=== PATIENT | male | born 1980 | race Caucasian/White ===

== ENCOUNTER 2020-05-08 08:31 | Outpatient (REF) | payer OTHER, SELFPAY ==
--- NOTE | 2020-05-08 08:35 | FL_ITS ---
EXAMINATION: FL BARIUM SWALLOW CLINICAL INFORMATION: Dysphagia. COMPARISON: None TECHNIQUE: Barium swallow examination is performed using fluoroscopic evaluation in addition to multiple fluoroscopic spot views. The patient is imaged both upright and prone and using both thick and thin sulfate along with effervescent granules. Fluoroscopy Time: 0.3 minutes DAP: 7.651 Gycm2 Images: 20 FINDINGS: Following oral administration of thick barium and thin barium in an upright view, there is normal propagation of bolus from the oral cavity through the pharynx, esophagus into the stomach without any evidence of obstruction or narrowing. There is extrinsic anterior impression on the mid esophagus likely from enlarged left atrium. However, there is no obstruction seen. Patient was unable to tolerate any more barium due to profuse spontaneous emesis. The exam was terminated. FL/FL barium swallow IMPRESSION: No evidence of esophageal obstruction, narrowing, or stricture. Non-obstructive indentation of anterior wall of mid esophagus likely left atrial enlargement. Correlate clinically.
== END 2020-05-08 08:32 | disposition home or self-care (01) ==
LOC: HO.XRAY 08:31
PROVIDERS: Visit Provider Internal Medicine Medical Oncology
DX: R13.10 Dysphagia, unspecified (principal); C64.9 Malignant neoplasm of unspecified kidney, except renal pelvis
CPT/HCPCS: 74220

== ENCOUNTER → 2020-05-13 14:54 | Outpatient (BNVA) | payer OTHER, SELFPAY | PROVIDERS: PCP Family Medicine; Visit Provider Internal Medicine | DX: Z76.89 Persons encountering health services in other specified circumstances (principal) ==

== ENCOUNTER 2020-06-05 12:27 | Emergency (ER) | payer OTHER, SELFPAY ==
[2020-06-05 12:33] VITALS: BP 133/102; PULSE 88; RESP 14; TEMP 36.6; O2SAT 97; BMI 33.9
--- NOTE | 2020-06-05 13:12 | ECG_ITS ---
Test Reason : AFIB Blood Pressure : / mmHG Vent. Rate : 082 BPM Atrial Rate : 082 BPM P-R Int : 196 ms QRS Dur : 100 ms QT Int : 384 ms P-R-T Axes : 045 029 034 degrees QTc Int : 448 ms Normal sinus rhythm Biatrial enlargement Abnormal ECG When compared with ECG of 05-JUN-2020 12:00, Sinus rhythm has replaced Atrial flutter Vent. rate has decreased BY [address] no longer depressed in Anterolateral leads Nonspecific T wave abnormality, improved in Inferior leads Referred By: Gertrude Fuentes Electronically Signed By:Hussein Wood
[2020-06-05 13:43] VITALS: RESP 20
[2020-06-05 14:03] LABS: D Dimer 1181 NG/ML
--- NOTE | 2020-06-05 14:24 | CT_ITS ---
EXAMINATION: CT ANGIOGRAM OF THE CHEST WITH AND WITHOUT CONTRAST (CT PULMONARY ANGIOGRAM FOR PE) CLINICAL INFORMATION: Reason for Exam SOB, elevated dimer, hx rnal cell CA COMPARISON: Previous chest CT most recent November 2019 TECHNIQUE: Prior to contrast administration, noncontrast localization images were obtained. Subsequently, multidetector volumetric imaging was performed from the thoracic inlet to below the diaphragms following the administration of 65 mL Omnipaque 350 intravenous contrast. No contrast reaction reported Sagittal, coronal, and MIP oblique sagittal reformatted images were obtained on the CT workstation, uploaded to PACS, and reviewed. This CT examination was performed using dose optimization techniques as appropriate, variously including the following: *Automated exposure control *Adjustment of mA and/or kV according to patient size (this includes techniques or standardized protocols for targeted exams where dose is matched to indication/reason for exam; i.e. extremities or head) *Use of iterative reconstruction technique Total exam dose-length product 43 4 mGy-cm FINDINGS: QUALITY OF STUDY/CONTRAST BOLUS: Satisfactory. PULMONARY ARTERIES: No large or central emboli. There is under opacification of segmental and subsegmental posterior basal segment right lower lobe pulmonary arteries for example axial image 260- 320 series 8, coronal reconstructed image 70 series 9, and oblique reconstructed images 78 series 11 and 100 series 12. There is new narrowing of the right inferior pulmonary vein for example axial image 27 series 6 and it is uncertain whether this is related to flow effects related to pulmonary vein narrowing or obstruction secondary to post radiation change. THORACIC AORTA: No aneurysm or dissection. LUNG: There is volume loss to the right hemithorax with shift of the central mediastinal structures to the right and elevation of the right hemidiaphragm. There is complete atelectasis/consolidation of the right middle lobe and cicatrization bronchiectasis. There is a cicatrization bronchiectasis seen in the adjacent right upper lobe and superior segment of the right lower lobe as well. Appearance is suggestive of post radiation changes. The lungs are otherwise clear. PLEURA: There is minimal pleural thickening along the major fissure. There is no pleural effusion. MEDIASTINUM: Normal heart size. No pericardial effusion. No evidence of septal bowing or right heart strain. There is an enlarged subcarinal mediastinal lymph node. This is difficult to separate from the adjacent esophagus. This measures 3.5 x 4 cm and does not appear appreciably changed in size from most recent exam November 2019. There are smaller mediastinal lymph nodes in the vascular space, right paratracheal region and right pulmonary hilum. There are right retrocrural lymph nodes that appear stable. The largest measures 6 x 12 mm axial image 47 series 6. CHEST WALL/AXILLA: No axillary or internal mammary lymphadenopathy. OSSEOUS STRUCTURES: No acute or suspicious osseous abnormality. UPPER ABDOMEN: There are enhancing liver lesions that are stable measuring approximately 1 cm high in the left lobe axial image 40 series 6, central right lobe axial image 47 series 6 and in the peripheral or subcapsular posterior segment of the right lobe measuring 1.1 x 1.4 cm axial image 59 series 6. The latter nodule is continuous with abnormal soft tissue in in the post nephrectomy bed. This appears stable. There is abnormal attenuation seen in the posterior lateral IVC again questionable for a possible IVC thrombus that is stable. There is a small left adrenal nodule that measures 8 x 12 mm axial image 56 series 6 that is stable. The spleen is slightly enlarged measuring 13 cm in length. No reflux of contrast into the hepatic veins to suggest elevated right heart pressures. CT/CT angio chest PE protocol IMPRESSION: No large or central pulmonary embolism seen. Decreased opacification of segmental and subsegmental right lower lobe pulmonary arteries and new narrowing or obstruction of the right inferior pulmonary vein. It is uncertain whether findings in the right pulmonary artery are secondary to slow or abnormal flow secondary to pulmonary venous obstruction/narrowing. Enlarged mediastinal lymph nodes, largest a subcarinal lymph node. Stable smaller right hilar and right retrocrural lymph nodes. Stable enhancing liver lesions. Stable abnormal soft tissue in the right posterior nephrectomy bed and abnormal soft tissue in the IVC. Appearance is questionable for tumor or thrombus. This is not appear appreciably changed from previous exams.
--- NOTE | 2020-06-05 14:28 | ED_ITS ---
HPI - Arrhythmia/Palpitations General Chief Complaint: Arrhythmia/Palpitations Stated Complaint: ABNORMAL EKG Time Seen by Provider: 06/05/20 12:48 Source: patient Mode of arrival: wheelchair Limitations: no limitations History of Present Illness HPI narrative: Patient comes to the emergency room from Dr. Meléndez office. Patient was being seen at the Oncology office for metastatic renal cell carcinoma, it was noted the patient's heart rate was in the 160s. Patient was brought to emergency room. Patient states that he is known to have intermittent atrial fibrillation, his heart rate does go up to the 160s intermittently. Patient is aware of this. Patient complaining of chronic shortness of breath for 4-5 months, patient states that he still being worked up for the reason of shortness of breath. Patient states he sees Dr. Garcia for atrial fibrillation, patient used to be on amiodarone, discontinued, and now he is on Cardizem and flecainide. By the time the patient's came to emergency room, hanny melgar was in sinus rhythm, with heart rate in the 80s. At this time, patient is asymptomatic other than having chronic shortness of breath MD complaint: rapid heart beat Related Data Home Medications Medication Instructions Recorded Confirmed albuterol sulfate 1 puff PO Q4H PRN 03/12/20 05/13/20 axitinib [Inlyta] 5 mg PO BID 03/12/20 05/13/20 ondansetron HCl 1 - 2 tab PO Q8H PRN 03/12/20 05/13/20 Previous Rx's Medication Instructions Recorded morphine [MS Contin] 60 mg PO Q12H #60 tab 03/19/20 oxycodone 10 mg PO Q8H PRN #90 tab 04/17/20 oxycodone 30 mg PO BID-TID PRN #120 tab 04/17/20 oxycodone 30 mg PO Q8H PRN #120 tab 04/29/20 diltiazem HCl 120 mg 120 mg PO DAILY #30 cap 05/07/20 capsule,extended release 24 hr flecainide 100 mg tablet 100 mg PO Q12H #60 tab 05/07/20 oxycodone 30 mg PO Q8H PRN #90 tab 05/08/20 oxycodone 30 mg PO TID PRN #90 tab 05/27/20 oxycodone 30 mg PO TID PRN #120 tab 06/05/20 Allergies Allergy/AdvReac Type Severity Reaction Status Date / Time No Known Allergies Allergy Verified 05/13/20 14:54 Review of Systems Review of Systems: Constitutional : No Weight loss, No Fever, No Chills, No Night Sweats, No Fatigue, No Malaise ENT/Mouth : No Hearing loss, No Ear Pain, No Nasal Congestion, No Sinus Pain, No Hoarseness, No sore throat, No Rhinorrhea, No Swallowing Difficulty Eyes: No Eye Pain, No Swelling, No Redness, No Foreign Body, No Discharge, No Vision Changes Cardiovascular : No Chest Pain, complaining of chronic shortness of breath, worse on exertion, No Orthopnea, No Edema, No Palpitations Respiratory : No Cough, No Sputum, No Wheezing, No Smoke Exposure, No Dyspnea Gastrointestinal : No Nausea, No Vomiting, No Diarrhea, No Constipation, No abdominal Pain, No Hematochezia, No Melena Genitourinary : no irregular bleeding, No Dysuria, No Urinary Frequency, No Hematuria, No Urinary Incontinence, No Urgency, No Flank Pain, No Urinary Flow Changes, No Hesitancy Musculoskeletal : No joint pain, No Myalgias, No Joint Swelling Skin : No Skin Lesions, No rash Neuro : No Weakness, No Numbness, No Paresthesias, No Loss of Consciousness, No Dizziness, No Headache Psych : No Anxiety/Panic, No Depression, No SI/HI/AH/VH, No Social Issues, Heme/Lymph: No Bruising, No Bleeding,No Lymphadenopathy Endocrine : No Polyuria, No Polydipsia, No Temperature Intolerance [facility] Past Medical History Medical History Atrial fibrillation alf current use of antiarrhythmic drug PAF (paroxysmal atrial fibrillation) Family History Family History (Updated 05/13/20 @ 14:57 by EVAN Vazqeuz) Father Atrial fibrillation Mother No problems noted. Social History Social History (Updated 05/13/20 @ 14:56 by EVAN Vazquez) Smoking Status: Current every day smoker Cigarettes Per Day: 10 Advance Directives: No Advance Directives Information Provided: No Physical Exam Vital Signs: Vital Signs: Last Vital Signs Temp 97.8 F 06/05/20 12:33 Pulse 88 06/05/20 12:33 Resp 20 06/05/20 13:43 BP 133/102 H 06/05/20 12:33 Pulse Ox 97 06/05/20 12:33 Body Mass Index 33.9 Constitutional : No Weight loss, No Fever, No Chills, No Night Sweats, No Fatigue, No Malaise ENT/Mouth : No Hearing loss, No Ear Pain, No Nasal Congestion, No Sinus Pain, No Hoarseness, No sore throat, No Rhinorrhea, No Swallowing Difficulty Eyes: No Eye Pain, No Swelling, No Redness, No Foreign Body, No Discharge, No Vision Changes Cardiovascular : No Chest Pain, No SOB, No Dyspnea on Exertion, No Orthopnea, No Edema, No Palpitations Respiratory : No Cough, No Sputum, No Wheezing, No Smoke Exposure, No Dyspnea Gastrointestinal : No Nausea, No Vomiting, No Diarrhea, No Constipation, No abdominal Pain, No Hematochezia, No Melena Genitourinary : no irregular bleeding, No Dysuria, No Urinary Frequency, No Hematuria, No Urinary Incontinence, No Urgency, No Flank Pain, No Urinary Flow Changes, No Hesitancy Musculoskeletal : No joint pain, No Myalgias, No Joint Swelling Skin : No Skin Lesions, No rash Neuro : No Weakness, No Numbness, No Paresthesias, No Loss of Consciousness, No Dizziness, No Headache Psych : No Anxiety/Panic, No Depression, No SI/HI/AH/VH, No Social Issues, Heme/Lymph: No Bruising, No Bleeding,No Lymphadenopathy Endocrine : No Polyuria, No Polydipsia, No Temperature Intolerance Course Course Course Narrative: Patient remains asymptomatic other than the chronic shortness of breath. Patient got the CT a for PE done, however he states that he cannot wait for the results, states he has an obligation at 16:00 and he can no longer wait. I discussed with the patient that patient may be admitted, we are waiting for the results of the PE, cardiology advise still pending regarding pt's flecainide which patient wants to discontinue, and also advised pending on whether patient is to be admitted to do the echocardiogram for the chronic shortness of breath. Patient states that he is always getting admitted without getting any answers, patient does not want to stay. Patient states that if he dies from a PE, he does not care, states that he already has cancer and he is going to anyways. Patient will leave against medical advise. Patient is alert and oriented x3, patient understands the risks of leaving against medical advice including possible MDM - Arrhythmia/Palpitations Lab Data Labs: Lab Results 06/05/20 Range/Units 13:36 D-Dimer 1181 NG/ML Discharge Plan Discharge Clinical Impression: Atrial fibrillation, Chronic shortness of breath Patient Disposition: Left Against Medical Advice Instructions: A-fib (Atrial Fibrillation) (ED), Shortness of Breath (ED) Additional Instructions: You are leaving against medical advice. Please follow-up with your mobile lab technician and with Dr. Meléndez. Please follow-up with your primary care physician tomorrow. If you have any worsening or new symptoms, please return to the emergency room or call 911 Prescriptions: No Action diltiazem HCl 120 mg capsule,extended release 24hr 120 mg PO DAILY Qty: 30 RF: 4 flecainide 100 mg tablet 100 mg PO Q12H Qty: 60 RF: 3 ondansetron HCl 8 mg tablet 1 - 2 tab PO Q8H PRN (Reason: nausea/vomiting) RF: 0 albuterol sulfate 90 mcg/actuation HFA aerosol inhaler 1 puff PO Q4H PRN (Reason: dyspnea) RF: 0 Inlyta 5 mg tablet 5 mg PO BID RF: 0 morphine [MS Contin] 60 mg Tablet Extended Release 60 mg PO Q12H Qty: 60 RF: 0 oxycodone 10 mg Tablet 30 mg PO BID-TID PRN (Reason: Breakthrough Pain, Moderate) Qty: 120 RF: 0 oxycodone 10 mg Tablet 10 mg PO Q8H PRN (Reason: Breakthrough Pain, Moderate) Qty: 90 RF: 0 oxycodone 10 mg Tablet 30 mg PO Q8H PRN (Reason: Breakthrough Pain, Mild) Qty: 120 RF: 0 oxycodone 10 mg Tablet 30 mg PO TID PRN (Reason: Breakthrough Pain, Moderate) Qty: 90 RF: 0 oxycodone 10 mg Tablet 30 mg PO TID PRN (Reason: Breakthrough Pain, Moderate) Qty: 120 RF: 0 oxycodone 10 mg Tablet 30 mg PO Q8H PRN (Reason: Pain) Qty: 90 RF: 0 Discharge Date/Time: 06/05/20 15:27
--- NOTE | 2020-06-05 14:44 | PC.NURSE ---
INFORMED MD THAT PT DDIMER ELEVATED. PT FRUSTRATED WITH HAVING TO BE IN ED. STATES HE HAS HAD THESE SYMPTOMS FOR YEARS. MD AND RN INTO ROOM AND MD DISCUSSED NEED FOR CTA. PT ASKING TO SPEAK WITH DR CHASE BEFORE SCAN BECAUSE HE IS SUPPOSED TO HAVE ANOTHER SCAN DONE IN 2 DAYS WITH DYE AND HE IS CONCERNED ABOUT HAVING TOO MUCH DYE INJECTED INTO HIM. PT HIMSELF TRIED TO CALL DR CHASE BUT WAS TOLD SHE IS NOT IN THE BUILDING. RN CALLED DOWN TO ONCOLOGY AND SPOKE WITH DIONE EDGE. EXPLAINED SITUATION TO HER AND SHE STATED SHE WOULD NOTIFY DR CHASE WHEN SHE RETURNS TO CALL [facility]. PT MADE AWARE AND AGREED TO HAVE IV PLACED. STATING HE IS AGREEABLE TO TEST AND WANTS TO LEAVE AFTER IT IS DONE. PT IN CT AT THIS TIME.
[2020-06-05] MEDS: iohexoL 350 MG/ML 100 ML INFUS..BTL IV (15:15)
--- NOTE | 2020-06-05 15:26 | PC.NURSE ---
Pt left AMA at this time. in room to discuss risks of leaving including risk of PE. Pt states he accepts these risks and states I've excaped for this long I have a higher risk of getting covid in here. IV removed, ambulated out of ED without incident. Declined to stay to wait for paperwork
== END 2020-06-05 15:27 | disposition left against medical advice (07) ==
PROVIDERS: Emergency Provider Emergency Medicine
DX: I48.91 Unspecified atrial fibrillation (principal); R00.2 Palpitations; R06.02 Shortness of breath; F17.200 Nicotine dependence, unspecified, uncomplicated; Z71.6 Tobacco abuse counseling; Z79.899 Other long term (current) drug therapy
CPT/HCPCS: 36415; 71275; 85379; 93005; 99284; Q9967

== ENCOUNTER → 2020-06-23 15:18 | Outpatient (BNVA) | payer OTHER, SELFPAY | PROVIDERS: Visit Provider Internal Medicine | DX: R06.02 Shortness of breath (principal); C78.00 Secondary malignant neoplasm of unspecified lung; R09.02 Hypoxemia; Z99.81 Dependence on supplemental oxygen | CPT/HCPCS: 99202 ==

== ENCOUNTER 2020-07-07 14:21 | Outpatient (REF) | payer OTHER, SELFPAY ==
--- NOTE | ~2020-07-07 | CT_ITS ---
EXAMINATION: CT ABDOMEN AND PELVIS WITH CONTRAST CLINICAL INFORMATION: Metastatic renal cell cancer COMPARISON: Previous CT scan most recent November 2019 TECHNIQUE: Multidetector volumetric images were obtained from the superior aspect of the liver through the pubic symphysis following administration 85 mL of Omnipaque 350 intravenous contrast. Sagittal and coronal reformatted images were obtained on the technologist's workstation. Oral contrast: Yes This CT examination was performed using dose optimization techniques as appropriate, variously including the following: *Automated exposure control *Adjustment of mA and/or kV according to patient size (this includes techniques or standardized protocols for targeted exams where dose is matched to indication/reason for exam; i.e. extremities or head) *Use of iterative reconstruction technique DLP: 7-1 mGy-cm FINDINGS: LUNG BASES: The visualized lung bases are unremarkable. LIVER, GALLBLADDER, AND BILIARY TREE: There are several small low-attenuation area seen high in the dome of the liver that are stable. The largest measures 1 cm axial image 12 series 3. There is a small low-attenuation area measuring less than 1 cm in the right lobe axial image 17 series 3 that is stable. There is a small low-attenuation area in the posterior segment of the right lobe adjacent to abnormal paraspinal soft tissue that measures less than 1 cm axial image 28 series 3 that is stable. No new liver lesion is seen. The gallbladder is unremarkable. There is no biliary duct dilatation. PANCREAS: Unremarkable. SPLEEN: The spleen is slightly enlarged measuring 13.5 cm in length. ADRENAL GLANDS: Unremarkable. KIDNEYS AND URETERS: The right kidney is been removed. There is abnormal soft tissue seen in the right paraspinal muscles extending to the right adrenal gland and inferior liver that appears stable in the post nephrectomy bed. The left kidney is unremarkable. BLADDER: Unremarkable. GASTROINTESTINAL TRACT: The small and large bowel are unremarkable. The appendix is unremarkable. ABDOMINAL WALL: No significant hernia is appreciated. LYMPH NODES: Normal. VASCULAR: There is chronic thrombus seen in the infrahepatic IVC. This is partially calcified and unchanged. Vascular structures are otherwise unremarkable. PELVIC VISCERA: Unremarkable. OSSEOUS STRUCTURES: Unremarkable. CT/CT abdomen pelvis w con IMPRESSION: Post right nephrectomy. Stable small liver lesions. Stable abnormal soft tissue in the nephrectomy bed involving the paraspinal muscles and extending to the right adrenal gland and inferior liver. Stable partially calcified thrombus in the infrahepatic IVC. Stable mild spinal megaly.
[2020-07-07] MEDS: iohexoL 350 MG/ML 100 ML INFUS..BTL IV (14:41)
[2020-07-07] MEDS: Barium Sulfate Oral (Berry) 450 ML ORAL.SUSP 900 ML PO (14:42)
== END 2020-07-07 14:22 | disposition home or self-care (01) ==
LOC: HO.CT 14:21
PROVIDERS: Visit Provider Internal Medicine Medical Oncology
DX: C64.9 Malignant neoplasm of unspecified kidney, except renal pelvis (principal)
CPT/HCPCS: 74177; Q9967

== ENCOUNTER 2020-07-20 15:04 | Outpatient (REF) | payer OTHER, SELFPAY ==
--- NOTE | 2020-07-20 17:21 | PFT_ITS ---
Forced vital capacity and FEV1 are both slightly decreased. FEV1/FVC ratio is normal. [id number] is normal. MVV is moderately decreased. The patient declined to have bronchodilator therapy. Total lung capacity and residual volume are both slightly decreased. Diffusion capacity is moderately decreased. DL/VA is slightly decreased. CONCLUSION: These findings are suggestive of mild restrictive pulmonary disorder. There is no evidence of any significant obstructive airway disorder. Clinical correlation is recommended. MD ANSHU Mullins/YAMILE / [id number]
== END 2020-07-20 15:05 | disposition home or self-care (01) ==
LOC: HO.RESP 15:04
PROVIDERS: Visit Provider Internal Medicine
DX: C78.00 Secondary malignant neoplasm of unspecified lung (principal); R09.02 Hypoxemia; R06.02 Shortness of breath; Z99.81 Dependence on supplemental oxygen
CPT/HCPCS: 94010; 94727; 94729; 99212

== ENCOUNTER → 2020-08-28 09:47 | Outpatient (REF) | payer OTHER, SELFPAY ==
--- NOTE | 2020-08-28 09:50 | CA_ITS ---
Transthoracic Echocardiogram Patient (Last, First, Middle): Wilfrid Barry, Gender: Male Date of : 1980 Age: 40 Procedure Date: 08/28/2020 Procedure Type: Transthoracic Echocardiogram Location: OP Height: 182.88 cm Weight: 112.01 kg BSA: 2.33 m2 Heart Rate: bpm BP: 130 / 80 mmHg Helmet Binder: Ana MD: Dell Garcia MD Dehydrogenation Converter Operator: Sami Wolf MD Symptoms: R06.02 - Shortness of breath Study Quality: Fair ECG Rhythm: Atrial Fibrillation Conclusions: - 1. Normal LV systolic function 2. Limited evaluation of cardiac valves with normal cardiac valvular Dopplers 3. Normal RV systolic pressure 4. No pericardial effusion Findings Left Ventricle The visually estimated ejection fraction is between 60-65%. Diastolic function is indeterminate on the basis of available data. Right Ventricle Normal right ventricular cavity size and systolic function. Atria The left atrium is normal in size. Interatrial shunt cannot be excluded. The right atrium is normal in size. Aortic Valve The aortic valve structure and function is likely normal. There is no aortic valve stenosis. There is no aortic valve regurgitation. Mitral Valve Normal mitral valve structure and function. There is trace mitral valve regurgitation. There is no mitral valve stenosis. Pulmonic Valve The pulmonic valve was not well visualized. Tricuspid Valve Likely normal tricuspid valve structure and function. There is trace tricuspid valve regurgitation. The right ventricular systolic pressure is normal. The right ventricular systolic pressure is 14 mmHg. There is no evidence of pulmonary hypertension. Great Vessels All visible segments of the aorta are normal in size. The pulmonary artery was not well visualized. Venous The inferior vena cava was not well visualized. Pericardium/Pleural There is no evidence of pericardial effusion. Prior Study Comparison Changes noted compared to prior study. Patient in atrial fibrillation Measurements 2D Linear Measurements IVSd: 0.89 0.6-0.9/0.6-1.0 cm LVIDd: 4.89 3.9-5.3/4.2-5.9 cm LVIDd Index: 2.10 2.4-3.2/2.2-3.1 cm/m2 LVIDs: 2.75 2.0-3.6 cm LVPWd: 0.94 0.7-1.1 cm Ao Root: 3.50 2.1-3.5 cm LA Diam: 4.00 2.7-3.8/3.0-4.0 cm LAIDs Index: 1.72 1.5-2.3 cm/m2 LV Mass: 301.54 67-162/88-224 g LV Mass Index: 129.41 43-95/49-115 g/m2 LVOT Diam: 2.50 3.0+(-)1.3 cm 2D Systolic Function EF 4C: 51.60 >55% EF 2C: 51.00 >55% Mitral Valve MV Pk E: 0.73 MV Decel Time: 155.00 E'Lateral: 8.80 E'Medial: 10.90 E/E' Med: 6.70 E/E' Lat: 8.30 PHT: 45.00 MVA PHT: 4.89 Decel Cambria: 4.70 Aortic Valve AoV Pk Quinton: 0.85 AoV Mn Quinton: 0.61 AoV VTI: 0.17 AoV Pk Grad: 3.00 Aov Mn Grad: 2.00 BRITANY Cont.VTI: 4.11 LVOT LVOT Pk Quinton: 0.64 LVOT Mn Quinton: 0.45 LVOT VTI: 0.14 LVOT Pk Grad: 2.00 LVOT Mn Grad: 1.00 LVOT Diam: 2.50 LVOT Area: 4.91 Diastolic Function MV Pk E: 0.73 E'Medial: 10.90 E/E' Med: 6.70 E' Laterial: 8.80 E/E' Lat: 8.30 Tricuspid Valve TR Pk Quinton: 1.69 TR Pk Grad: 11.00 RA Press: 3.00 RVSP: 14.00 Great Vessels Aorta Ao Root-2D: 3.50 2.0-3.7 cm Ao Asc: 3.60 2.1-3.4 cm Pulmonary Valve PV Pk Quinton: 0.87 Peak PV Grad: 3.00 Updated in Other Vendor System with Status of Final Sami Wolf MD electronically signed on 08/28/2020 2:32:49 PM with status of Final
== END ==
LOC: HO.CARD 09:47
PROVIDERS: Visit Provider Internal Medicine
DX: R06.02 Shortness of breath (principal)
CPT/HCPCS: 93306

== ENCOUNTER → 2020-09-16 15:39 | Outpatient (BNVA) | payer OTHER, SELFPAY | PROVIDERS: PCP Nurse Practitioner Family; Visit Provider Internal Medicine | DX: C78.00 Secondary malignant neoplasm of unspecified lung (principal); R06.02 Shortness of breath; R09.02 Hypoxemia; Z99.81 Dependence on supplemental oxygen | CPT/HCPCS: 99212 ==

== ENCOUNTER → 2020-09-23 14:30 | Outpatient (BNVA) | payer OTHER, SELFPAY | PROVIDERS: PCP Nurse Practitioner Family; Visit Provider Internal Medicine | DX: I48.0 Paroxysmal atrial fibrillation (principal); I48.92 Unspecified atrial flutter; C64.9 Malignant neoplasm of unspecified kidney, except renal pelvis; Z51.81 Encounter for therapeutic drug level monitoring; Z79.899 Other long term (current) drug therapy | CPT/HCPCS: 93005; 99212 ==

== ENCOUNTER → 2020-10-07 14:14 | Outpatient (REF) | payer OTHER, SELFPAY ==
--- NOTE | 2020-10-07 16:05 | ECG_ITS ---
Hook-up date: 2020-10-07 14:20:00 Duration: 22:15:00 Test Indications: persistent afibrillation Medications: 468504 QRS complexes 13 Ventricular ectopics which represent <1 % of total QRS comp. 962 Supraventricular ectopics which represent <1 % of total QRS comp. * Paced QRS complexs which represent % of total QRS comp. VENTRICULAR ECTOPY 13 Isolated 0 Bigeminal Cycles 0 Couplets 0 Runs 0 Beats in Runs * Beats LONGEST at * BPM at :: -- * Beats FASTEST at * BPM at :: -- SUPRAVENTRICULAR ECTOPY 937 Isolated 8 Couplets 3 Runs 9 Beats in Runs 3 Beats LONGEST at 131 BPM at 17:03:40 2020-10-07 3 Beats FASTEST at 144 BPM at 20:03:13 2020-10-07 HEART RATES 40 MIN at 05:56:05 2020-10-08 90 AVG 182 MAX at 16:37:48 2020-10-07 LONGEST RR 2.2720 secs at 05:28:09 2020-10-08 S-T LEVELS Channel 1 - 128 mm at 14:20:00 2020-10-07 - 128 mm at 14:20:00 2020-10-07 Channel 2 - 128 mm at 14:20:00 2020-10-07 - 128 mm at 14:20:00 2020-10-07 Channel 3 - 128 mm at 03:33:91 -- - 128 mm at 03:33:91 Basic rhythm Normal sinus rhythm with Intermittent Atrial flutter No long pause or profound bradycardia Atrial flutter with rates upto 182 bpm Rare Premature ventricular complexes No diary submitted Referred By: Dell Garcia Overread By: FAINA HORNE MD
== END ==
LOC: HO.CARD 14:14
PROVIDERS: PCP Nurse Practitioner Family; Referring Provider Nurse Practitioner Family; Visit Provider Internal Medicine
DX: I48.0 Paroxysmal atrial fibrillation (principal)
CPT/HCPCS: 93226

== ENCOUNTER 2020-10-08 15:00 | Outpatient (RCR) | payer OTHER, SELFPAY ==
--- NOTE | 2020-02-28 13:47 | MHC.HEMONC ---
pt here for labs and to tack picker rx for short acting oxycodone. He had no new concerns. Will call with any concerning values.
[2020-02-28 14:43] LABS: MANUAL DIFF FLAG NO
[2020-02-28 14:45] LABS: Basophils Absolute Auto 0.1 X10*3/uL (0.0-0.2); Basophils Percent Auto 0.5 % (0-2); Eosinophils Absolute Auto 0.3 X10*3/uL (0.0-0.4); Eosinophils Percent Auto 2.4 % (0-4); Hematocrit 48.2 % (42-52); Imm Gran Abs Auto 0.06 X10*3/uL (0.00-0.03); Imm Gran Pct Auto 0.4 % (0.0-0.4); Lymphocytes Absolute Auto 2.1 X10*3/uL (1.2-4.9); Lymphocytes Percent Auto 14.9 % (20-40); Mean Corpuscular HGB Conc 33.2 g/dl (31.0-36.0); Mean Corpuscular Hemoglobin 28.5 pg (27.0-33.0); Mean Corpuscular Volume 85.8 fL (80-98); Mean Platelet Volume 10.5 fL (9.4-12.4); Monocytes Percent Auto 6.9 % (2-11); Neutrophils Absolute Auto 10.7 X10*3/uL (2.0-8.3); Neutrophils Percent Auto 74.9 % (45-73); Platelet Count 276 X10*3/uL (160-400); Red Blood Count 5.62 X10*6/uL (4.60-5.80); Red Cell Distribution Width 14.4 % (11.0-16.0); White Blood Count 14.3 X10*3/uL (4.8-10.8)
[2020-02-28 15:09] LABS: Alanine Aminotransferase 10 U/L (0-40); Albumin Level 3.8 g/dL (3.5-5.0); Alkaline Phosphatase 67 U/L (39-117); Anion Gap 12 (12-20); Aspartate Amino Transferase 13 U/L (5-37); Bilirubin Total 0.5 mg/dL (0.0-1.0); Blood Urea Nitrogen 9 mg/dL (9-16); Calcium 8.9 mg/dL (8.4-10.2); Carbon Dioxide 29 mmol/L (22-29); Chloride 104 mmol/L (96-108); Estimated Glomerular Filt Rate > 60; Glucose Random 112 mg/dL (60-115); Potassium 4.3 mmol/l (3.3-5.1); Sodium 141 mmol/L (135-145); Total Protein 6.3 g/dL (6.5-8.0)
--- NOTE | 2020-02-28 17:32 | MHC.HEMONC ---
pt here for labs which were reviewed and WNL. Oxycodone rx given to pt
--- NOTE | 2020-03-02 09:51 | MHC.HEMONCSW ---
RECEIVED FAXED FROM [facility] AUTHORIZING OXYCODONE 270 TABLETS PER 30 DAYS FROM THE PERIOD OF 02/28/20 TO 02/27/21. AUTHORIZATION NUMBER [id number].
[2020-03-12 11:22] VITALS: BMI 35.6
[2020-03-12 11:27] VITALS: BP 158/104; PULSE 83; RESP 18; TEMP 36.4; O2SAT 98
[2020-03-12 12:04] LABS: MANUAL DIFF FLAG NO
[2020-03-12 12:06] LABS: Basophils Absolute Auto 0.1 X10*3/uL (0.0-0.2); Basophils Percent Auto 0.8 % (0-2); Eosinophils Absolute Auto 0.2 X10*3/uL (0.0-0.4); Eosinophils Percent Auto 2.9 % (0-4); Hematocrit 43.6 % (42-52); Imm Gran Abs Auto 0.02 X10*3/uL (0.00-0.03); Imm Gran Pct Auto 0.2 % (0.0-0.4); Lymphocytes Absolute Auto 1.7 X10*3/uL (1.2-4.9); Lymphocytes Percent Auto 20.6 % (20-40); Mean Corpuscular HGB Conc 32.1 g/dl (31.0-36.0); Mean Corpuscular Hemoglobin 27.9 pg (27.0-33.0); Mean Corpuscular Volume 86.9 fL (80-98); Mean Platelet Volume 9.9 fL (9.4-12.4); Monocytes Absolute Auto 0.6 X10*3/uL (0.1-1.2); Monocytes Percent Auto 7.2 % (2-11); Neutrophils Absolute Auto 5.7 X10*3/uL (2.0-8.3); Neutrophils Percent Auto 68.3 % (45-73); Platelet Count 231 X10*3/uL (160-400); Red Blood Count 5.02 X10*6/uL (4.60-5.80); Red Cell Distribution Width 14.5 % (11.0-16.0); White Blood Count 8.4 X10*3/uL (4.8-10.8)
[2020-03-12 12:27] LABS: Alanine Aminotransferase 6 U/L (0-40); Albumin Level 3.8 g/dL (3.5-5.0); Alkaline Phosphatase 62 U/L (39-117); Anion Gap 11 (12-20); Aspartate Amino Transferase 11 U/L (5-37); Bilirubin Total 0.4 mg/dL (0.0-1.0); Blood Urea Nitrogen 7 mg/dL (9-16); Calcium 9.1 mg/dL (8.4-10.2); Carbon Dioxide 31 mmol/L (22-29); Chloride 102 mmol/L (96-108); Creatinine Clr Calc Pharmacy 136.3; Estimated Glomerular Filt Rate > 60; Glucose Random 100 mg/dL (60-115); Potassium 4.5 mmol/l (3.3-5.1); Sodium 139 mmol/L (135-145); Total Protein 6.3 g/dL (6.5-8.0)
[2020-03-12] MEDS: ondansetron HCL/NS 16 MG/50 ML PIGGYBACK 200 MG IV (13:25)
[2020-03-12 13:39] VITALS: BP 164/100
[2020-03-12] MEDS: dexAMETHasone sod phosphate/NS 12 MG/50 ML PIGGYBACK 100 MG IV (13:43)
--- NOTE | 2020-03-12 15:22 | MHC.HEMONC ---
pt here for [facility]. Labs WNL. He has been doing well on Axitinib and KETRUDA. No toxitities noted.
[2020-03-12 16:35] LABS: Thyroid Stimulating Hormone 2.35 mIU/mL (0.32-4.0)
[2020-04-02 08:33] VITALS: BMI 35.6
[2020-04-02 10:58] VITALS: BMI 35.2
[2020-04-02 12:09] LABS: MANUAL DIFF FLAG NO
[2020-04-02 12:17] LABS: Basophils Absolute Auto 0.1 X10*3/uL (0.0-0.2); Basophils Percent Auto 0.7 % (0-2); Eosinophils Absolute Auto 0.3 X10*3/uL (0.0-0.4); Eosinophils Percent Auto 2.7 % (0-4); Hematocrit 47.2 % (42-52); Hemoglobin 15.6 g/dl (14.0-18.0); Imm Gran Abs Auto 0.03 X10*3/uL (0.00-0.03); Imm Gran Pct Auto 0.3 % (0.0-0.4); Lymphocytes Percent Auto 18.3 % (20-40); Mean Corpuscular HGB Conc 33.1 g/dl (31.0-36.0); Mean Corpuscular Hemoglobin 28.3 pg (27.0-33.0); Mean Corpuscular Volume 85.7 fL (80-98); Mean Platelet Volume 10.5 fL (9.4-12.4); Monocytes Absolute Auto 0.7 X10*3/uL (0.1-1.2); Monocytes Percent Auto 6.2 % (2-11); Neutrophils Absolute Auto 7.8 X10*3/uL (2.0-8.3); Neutrophils Percent Auto 71.8 % (45-73); Platelet Count 211 X10*3/uL (160-400); Red Blood Count 5.51 X10*6/uL (4.60-5.80); Red Cell Distribution Width 14.3 % (11.0-16.0); White Blood Count 10.9 X10*3/uL (4.8-10.8)
[2020-04-02 12:41] LABS: Alanine Aminotransferase 8 U/L (0-40); Alkaline Phosphatase 76 U/L (39-117); Anion Gap 14 (12-20); Aspartate Amino Transferase 12 U/L (5-37); Bilirubin Total 0.2 mg/dL (0.0-1.0); Blood Urea Nitrogen 10 mg/dL (9-16); Calcium 8.4 mg/dL (8.4-10.2); Carbon Dioxide 26 mmol/L (22-29); Chloride 103 mmol/L (96-108); Creatinine Clr Calc Pharmacy 144.6; Estimated Glomerular Filt Rate > 60; Glucose Random 95 mg/dL (60-115); Potassium 4.4 mmol/l (3.3-5.1); Sodium 139 mmol/L (135-145); Total Protein 6.7 g/dL (6.5-8.0)
[2020-04-03 10:33] VITALS: BP 151/104; PULSE 97; RESP 18; TEMP 36.4; O2SAT 98; BMI 35.3
[2020-04-03 11:02] LABS: Thyroid Stimulating Hormone 1.93 mIU/mL (0.32-4.0)
[2020-04-03 11:12] VITALS: BP 122/77
[2020-04-03] MEDS: ondansetron HCL/NS 16 MG/50 ML PIGGYBACK 200 MG IV (11:40)
--- NOTE | 2020-04-20 10:36 | MHC.HEMONCMA ---
Patient called and spoke with Cindy and explained that the rx for oxycodone was written incorrectly. He described that the rx should be 10mg 3 pills tid prn for breakthrough pain with a quantity of 90. Spoke with Dr Meléndez and she corrected the rx and signed. I called and notified the patient, he is on his way to pick up worker with the rx.
--- NOTE | 2020-04-21 14:58 | MHC.HEMONC ---
Patient called states he feels like food is getting stuck and that he ate alot of sharp cheese it's last night and may have scratched his throat and is having blood streaked sputum. Patient states it resolved and started up again after eating more sharp cheese its. Dr. Meléndez made aware, plan to order a barium swallow. Follow up 04/30 for next chemo per MD.
--- NOTE | 2020-04-30 10:05 | MHC.HEMONCSW ---
PT HAS BEEN AN ONCOLOGY PATIENT HERE SINCE 2018. DIAGNOSIS IS METASTATIC RENAL CANCER, RECEIVING CHEMO/HORMONE THERAPY. HE IS A 41 Y.O. MALE WITH 2 DAUGHTERS. HE JUST BOUGHT HIS FIRST HOME. OVERALL PATIENT REPORTS COPING WELL. DOES ADMIT TO PAINFUL DAYS BUT IS OPTIMISTIC ABOUT HIS FUTURE. PATIENT RECEIVES A LOT OF FORMAL AND INFORMAL SUPPORTS. 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 HISTORY OF ALCOHOL ABUSE BUT SOBER APPROXIMATELY 5 YEARS. HAS NO FORMAL MENTAL HEALTH DIAGNOSIS. RECEIVES ONLY FOIL WRAPPER SERVICES. REMAINS INDEPENDENT, AMBULATORY, STILL DRIVES. EDUCATION, NUTRITION, GUIDANCE AND SUPPORT CONTINUE TO BE PROVIDED. PT IS AWARE OF MY AVAILABILITY.
[2020-05-01 12:28] LABS: MANUAL DIFF FLAG NO
[2020-05-01 12:32] VITALS: BMI 34.2
[2020-05-01 12:33] VITALS: BP 119/85; PULSE 99; RESP 20; TEMP 36.2; O2SAT 95
[2020-05-01 13:07] LABS: Basophils Absolute Auto 0.1 X10*3/uL (0.0-0.2); Basophils Percent Auto 0.9 % (0-2); Eosinophils Absolute Auto 0.3 X10*3/uL (0.0-0.4); Eosinophils Percent Auto 2.7 % (0-4); Hematocrit 48.9 % (42-52); Hemoglobin 15.5 g/dl (14.0-18.0); Imm Gran Abs Auto 0.04 X10*3/uL (0.00-0.03); Imm Gran Pct Auto 0.3 % (0.0-0.4); Lymphocytes Absolute Auto 2.1 X10*3/uL (1.2-4.9); Mean Corpuscular HGB Conc 31.7 g/dl (31.0-36.0); Mean Corpuscular Hemoglobin 27.3 pg (27.0-33.0); Mean Corpuscular Volume 86.1 fL (80-98); Mean Platelet Volume 10.4 fL (9.4-12.4); Monocytes Absolute Auto 0.8 X10*3/uL (0.1-1.2); Monocytes Percent Auto 6.8 % (2-11); Neutrophils Absolute Auto 8.3 X10*3/uL (2.0-8.3); Neutrophils Percent Auto 71.3 % (45-73); Platelet Count 249 X10*3/uL (160-400); Red Blood Count 5.68 X10*6/uL (4.60-5.80); Red Cell Distribution Width 13.7 % (11.0-16.0); White Blood Count 11.6 X10*3/uL (4.8-10.8)
[2020-05-01 13:13] LABS: Alanine Aminotransferase 9 U/L (0-40); Albumin Level 3.9 g/dL (3.5-5.0); Alkaline Phosphatase 66 U/L (39-117); Anion Gap 14 (12-20); Aspartate Amino Transferase 12 U/L (5-37); Bilirubin Total 0.7 mg/dL (0.0-1.0); Blood Urea Nitrogen 7 mg/dL (9-16); Calcium 8.8 mg/dL (8.4-10.2); Carbon Dioxide 27 mmol/L (22-29); Chloride 103 mmol/L (96-108); Creatinine Clr Calc Pharmacy 144.1; Estimated Glomerular Filt Rate > 60; Glucose Random 121 mg/dL (60-115); Potassium 4.4 mmol/l (3.3-5.1); Sodium 140 mmol/L (135-145); Total Protein 6.6 g/dL (6.5-8.0)
--- NOTE | 2020-05-01 15:32 | MHC.HEMONC ---
Addendum entered by Shelby Warner RN 05/01/20 15:38: Patient refused pre-medications today. Patient stated he took zofran at home. Original Note: Patient complains of difficulty swallowing food stating food feels like its getting stuck Patient also reports ongoing shortness of breath with excertion. 02 sats wnl, lungs clear. Dr. Meléndez notified, MD to place order for barrium swallow. Patient would like to get treated today. No respiratory distress noted. Patient had lunch without difficulty. Follow up with Dr. Meléndez for 05/27/20.
--- NOTE | 2020-05-07 11:52 | MHC.HEMONC ---
BARIUM SWALLOW SCHEDULED FOR 05/08/2020 at 8:30am. NPO - 8 HRS PRIOR. PT WAS NOTIFIED OF APPT.
--- NOTE | 2020-05-15 10:29 | MHC.HEMONCMA ---
Patient called in for a refill on both his long and short acting narcotics, I let him know that I will let the DR know. HE understands and will be in later to get them.
[2020-05-26 17:01] VITALS: BMI 34.2
[2020-05-27 11:33] VITALS: BP 130/79; PULSE 92; RESP 18; TEMP 37; O2SAT 96
[2020-05-27 11:34] VITALS: BMI 34.0
[2020-05-27 11:47] LABS: Basophils Absolute Auto 0.1 X10*3/uL (0.0-0.2); Basophils Percent Auto 0.9 % (0-2); Eosinophils Absolute Auto 0.3 X10*3/uL (0.0-0.4); Eosinophils Percent Auto 3.6 % (0-4); Hematocrit 44.4 % (42-52); Hemoglobin 14.6 g/dl (14.0-18.0); Imm Gran Abs Auto 0.03 X10*3/uL (0.00-0.03); Imm Gran Pct Auto 0.3 % (0.0-0.4); Lymphocytes Absolute Auto 1.7 X10*3/uL (1.2-4.9); MANUAL DIFF FLAG NO; Mean Corpuscular HGB Conc 32.9 g/dl (31.0-36.0); Mean Corpuscular Hemoglobin 28.7 pg (27.0-33.0); Mean Corpuscular Volume 87.2 fL (80-98); Mean Platelet Volume 10.2 fL (9.4-12.4); Monocytes Absolute Auto 0.6 X10*3/uL (0.1-1.2); Monocytes Percent Auto 6.6 % (2-11); Neutrophils Absolute Auto 6.5 X10*3/uL (2.0-8.3); Neutrophils Percent Auto 70.6 % (45-73); Platelet Count 193 X10*3/uL (160-400); Red Blood Count 5.09 X10*6/uL (4.60-5.80); Red Cell Distribution Width 13.9 % (11.0-16.0); White Blood Count 9.2 X10*3/uL (4.8-10.8)
--- NOTE | 2020-05-27 11:47 | PM.HEMONCPN ---
Medical Summary - Medical Summary Date of Service: 06/01/20 Chief complaint: F/U for Renal Cell Carcinoma. Medical Summary: DIAGNOSIS: Metastatic renal cell carcinoma. Pulmonary metastases. Hypercalcemia. PATHOLOGY: Right paratracheal lymph node: Metastatic carcinoma with morphologic and immunohistochemical features consistent with origin from a renal primary. Right upper lobe bronchial mass: Fragment of bronchial mucosa with associated thrombus the latter containing few malignant cells similar to those seen in the specimen A. Immunostains revealed: CK AE1 to AE 3: Positive, CK7: Negative, CK 20: Negative. Starford 8: Positive. RCC: Positive. RCC: Positive. TTF 1: Negative. S100: Negative. Confirmed renal cell carcinoma. CURRENT THERAPY: 1. Status post cytoreductive nephrectomy. 2. RT to lung. 3. Pazopanib started mid December 2016. 4. Nivolumab started 04/24/2017. 5. Year void a added 07/20/2018. Fourth dose 09/28. 6. Pembrolizumab started January 02. Interval History Interval history: This is a pleasant 40-year-old gentleman here for a follow-up visit. He does not feel too well. He has had symptoms of dysphagia. Especially when he eats something bulky like bread, it gets caught in his throat and he has to drink liquids to push it down. He had an barium swallow which was actually negative. He has had symptoms of shortness of breath. Especially when he tries to climb stairs he has to take frequent breaks due to the shortness of breath. He he denies chest pain cough nor sputum. His belly does not feel too comfortable. He sometimes has a warm sensation in the stomach. It is as if he is hungry. He has been getting migraine headaches sometimes. He gets the aura, with flashes of of light. He denies any focal neurological deficits. He enjoys a good appetite. He has lost some weight. His spirits are down. Rest of the review of systems is unremarkable. Review of Systems - Constitutional Reports system reviewed and no additional complaints, except as documented, Reports fatigue - Eyes Reports system reviewed and no additional complaints, except as documented - ENT Reports system reviewed and no additional complaints, except as documented - Cardiovascular Reports system reviewed and no additional complaints, except as documented - Respiratory Reports no additional respiratory complaints, Reports dyspnea, Reports dyspnea on exertion, Denies hemoptysis - Gastrointestinal Reports system reviewed and no additional complaints, except as documented, Reports difficulty swallowing - Genitourinary Genitourinary: Reports no additional male genitourinary complaints - Musculoskeletal Reports system reviewed and no additional complaints, except as documented - Integumentary/Breasts Skin/Breast: Reports no additional skin complaints - Neurologic Reports system reviewed and no additional complaints, except as documented - Psychiatric Reports system reviewed and no additional complaints, except as documented - Endocrine Reports no additional endocrine complaints - Hematologic/Lymphatic Reports system reviewed and no additional complaints, except as documented - Allergic/Immunologic Reports system reviewed and no additional complaints, except as documented PMFSH Medical History: Medical History (Last Updated 05/13/20 @ 15:14 by Dell Garcia MD) Atrial fibrillation residential current use of antiarrhythmic drug PAF (paroxysmal atrial fibrillation) Functional capacity: independent ambulation Patient : No Family History: Family History (Last Updated 05/13/20 @ 14:57 by EVAN Vazquez) Father Atrial fibrillation Mother No problems noted. Home Medications and Allergies Current Medications: Current Medications Generic Name Dose Route Start Last Admin Trade Name Freq PRN Reason Stop Dose Admin Heparin Sodium (Porcine) 500 unit 05/27/20 00:00 Heparin Sodium,Porcine Flush 500 Unit/5 Ml Syringe IVFLUSH 05/27/20 23:59 ONCE ANDRA Ondansetron HCl 16 mg in 50 mls @ 200 mls/hr 05/27/20 00:00 Zofran IV 05/27/20 23:59 ONCE ANDRA Home Medications Medication Instructions Recorded Confirmed Type albuterol sulfate 1 puff PO Q4H PRN 03/12/20 05/13/20 History axitinib [Inlyta] 5 mg PO BID 03/12/20 05/13/20 History ondansetron HCl 1 - 2 tab PO Q8H PRN 03/12/20 05/13/20 History Allergies Allergy/AdvReac Type Severity Reaction Status Date / Time No Known Allergies Allergy Verified 05/13/20 14:54 Exam Vital signs: Vital Signs Temp 98.6 F 05/27/20 11:33 Pulse 92 05/27/20 11:33 Resp 18 05/27/20 11:33 BP 130/79 05/27/20 11:33 Pulse Ox 96 05/27/20 11:33 Intake & Output 05/26/20 05/27/2020 18:59 06:59 18:59 Other: Weight 114.6 kg 114 kg Weight 114 kg Body Mass Index 34.0 - Constitutional Present: no acute distress - Routine HEENT Exam Head: Present: normal inspection Eye: Present: normal appearance ENT: Present: mucous membranes moist - Routine Neck Exam Present: full ROM - Routine Respiratory Exam Present: CTAB - Routine Cardiovascular Exam Cardiovascular: Present: RRR, S1, S2 - Routine Abdominal Exam Present: soft, nontender - Routine Extremities Exam Present: nontender - Routine Back/Spine/Pelvis Exam Back/Spine: Present: full ROM - Routine Skin Exam Present: intact - Routine Neurological Exam Present: alert, oriented X3 - Routine Psychiatric Exam Present: normal affect Data - Labs CBC & Chem 7: 05/27/20 11:20 05/27/20 11:20 Labs: 02/28/20 14:05 CMP [Comprehensive Met. Panel] Routine Complete Blood Count Auto Diff Routine 03/12/20 00:00 Heparin Sodium,Porcine Flush 500 unit IVFLUSH ONCE Pembrolizumab [Keytruda] 200 mg 0.9 % Sodium Chloride [Ns] 50 ml IV ONCE dexAMETHasone sod phosphate/NS [Decadron] 12 mg in 50 ml IV ONCE ondansetron HCL/NS [Zofran] 16 mg in 50 ml IV ONCE 03/12/20 11:46 Complete Blood Count Auto Diff Routine Comprehensive Met. Panel Routine Thyroid Stimulating Hormone Routine 03/12/20 16:04 Add Laboratory Test Routine 04/02/20 00:00 Acetaminophen [Tylenol] 650 mg PO ONCE Heparin Sodium,Porcine Flush 500 unit IVFLUSH ONCE diphenhydrAMINE HCL [Benadryl] 25 mg PO ONCE ondansetron HCL/NS [Zofran] 16 mg in 50 ml IV ONCE 04/02/20 11:16 Complete Blood Count Auto Diff Routine Comprehensive Met. Panel Routine Thyroid Stimulating Hormone Routine 04/03/20 00:00 Acetaminophen [Tylenol] 650 mg PO ONCE Heparin Sodium,Porcine Flush 500 unit IVFLUSH ONCE Pembrolizumab [Keytruda] 200 mg 0.9 % Sodium Chloride [Ns] 50 ml IV ONCE diphenhydrAMINE HCL [Benadryl] 25 mg PO ONCE ondansetron HCL/NS [Zofran] 16 mg in 50 ml IV ONCE 04/03/20 10:30 Add Laboratory Test Stat 04/30/20 00:00 Heparin Sodium,Porcine Flush 500 unit IVFLUSH ONCE diphenhydrAMINE HCL [Benadryl] 25 mg PO ONCE ondansetron ODT [Zofran ODT] 8 mg TRANSLINGU ONCE 05/01/20 00:00 Pembrolizumab [Keytruda] 200 mg 0.9 % Sodium Chloride [Ns] 50 ml IV ONCE 05/01/20 12:26 Complete Blood Count Auto Diff Routine Comprehensive Met. Panel Routine Laboratory Last Values WBC 11.6 X10*3/uL (4.8-10.8) H 05/01/20 12:26 RBC 5.68 X10*6/uL (4.60-5.80) 05/01/20 12:26 Hgb 15.5 g/dl (14.0-18.0) 05/01/20 12:26 Hct 48.9 % (42-52) 05/01/20 12:26 MCV 86.1 fL (80-98) 05/01/20 12:26 MCH 27.3 pg (27.0-33.0) 05/01/20 12:26 MCHC 31.7 g/dl (31.0-36.0) 05/01/20 12:26 RDW 13.7 % (11.0-16.0) 05/01/20 12:26 Plt Count 249 X10*3/uL (160-400) 05/01/20 12:26 MPV 10.4 fL (9.4-12.4) 05/01/20 12:26 Immature Gran % (Auto) 0.3 % (0.0-0.4) 05/01/20 12:26 Neut % (Auto) 71.3 % (45-73) 05/01/20 12:26 Lymph % (Auto) 18.0 % (20-40) L 05/01/20 12:26 Harding % (Auto) 6.8 % (2-11) 05/01/20 12:26 Eos % (Auto) 2.7 % (0-4) 05/01/20 12:26 Baso % (Auto) 0.9 % (0-2) 05/01/20 12:26 Neut # (Auto) 10.7 X10*3/uL (2.0-8.3) H 02/28/20 14:05 Lymph # (Auto) 2.1 X10*3/uL (1.2-4.9) 05/01/20 12:26 Harding # (Auto) 0.8 X10*3/uL (0.1-1.2) 05/01/20 12:26 Eos # (Auto) 0.3 X10*3/uL (0.0-0.4) 05/01/20 12:26 Baso # (Auto) 0.1 X10*3/uL (0.0-0.2) 05/01/20 12:26 Abs Immat Gran (auto) 0.04 X10*3/uL (0.00-0.03) H 05/01/20 12:26 Absolute Neuts (auto) 8.3 X10*3/uL (2.0-8.3) 05/01/20 12: Absolute Nucleated RBC 0.000 X10*3/uL (0.0-0.012) 05/01/20 12:26 Nucleated RBC % (auto) 0.0 /100WBC (0.0-0.2) 05/01/20 12:26 Sodium 140 mmol/L (135-145) 05/01/20 12:26 Potassium 4.4 mmol/l (3.3-5.1) 05/01/20 12: Chloride 103 mmol/L (96-108) 05/01/20 12: Carbon Dioxide 27 mmol/L (22-29) 05/01/20 12:26 Anion Gap 14 (-20) 05/01/20 12:26 BUN 7 mg/dL (9-16) L 05/01/20 12:26 Creatinine 0.89 mg/dL (0.5-1.4) 05/01/20 12:26 Estim Creat Clear Calc 144.1 05/01/20 12:26 Estimated GFR > 60 05/01/20 12:26 Random Glucose 121 mg/dL (60-115) H 05/01/20 12:26 Calcium 8.8 mg/dL (8.4-10.2) 05/01/20 12:26 Total Bilirubin 0.7 mg/dL (0.0-1.0) 05/01/20 12:26 AST 12 U/L (5-37) 05/01/20 12:26 ALT 9 U/L (0-40) 05/01/20 12:26 Alkaline Phosphatase 66 U/L (39-117) 05/01/20 12:26 Total Protein 6.6 g/dL (6.5-8.0) 05/01/20 12:26 Albumin 3.9 g/dL (3.5-5.0) 05/01/20 12:26 TSH 1.93 mIU/mL (0.32-4.0) 04/02/20 11:16 Progress Note: A/P (1) Metastatic renal cell carcinoma Status: Acute Assessment and plan: This is a pleasant 40-year-old gentleman with a history of metastatic renal cell carcinoma, diagnosed in September of 2016. He had pulmonary metastases. He had hemoptysis. He received radiation therapy to the chest to control it. He underwent cytoreductive nephrectomy by Dr. More at [facility]. He was on pazopanib. He developed recurrence. He was not a candidate for protocol based therapy. He was given nivolumab, started April 17. CT of the chest from June to revealed: Significant increase in size of large centrally necrotic conglomerate olga lidia mass measuring up to 4.8 cm compared to 2.4 cm. He was then started on combination of ipilimumab with nivolumab 07/20/2018. Repeat imaging 02/22/2019: Interval decrease in size of the left upper lobe pulmonary nodule compared to previous exam. No suspicious pulmonary nodule. Unchanged enhancing hepatic lesions. Unchanged 1.7 cm nodular structure along the posterior margin of the IVC in right upper abdomen. He was continued on the same therapy. CT scan of the abdomen and chest from 12/22 revealed: 1 cm pretracheal and precarinal and large heterogenous subcarinal lymph node measuring 5.5 x 3.4 cm. Previously it measured 0.6 x 2.8 cm. It has increased in size. Abnormal right hilar 1.1 cm and left hilar smaller lymph nodes. Mild hepatomegaly with small hypodensity adjacent to the right hemidiaphragm in the right hepatic lobe and paraspinal soft tissue appear to be stable. In view of the progression he was switched over to pembrolizumab and axitinib based regimen. He has been tolerating it well up till now. However lately he has noted symptoms of shortness of breath and fatigue. He is due for his treatment today, however he does not feel up to receiving it. He would like to have a nice holiday with his family. PLAN: Will hold off on his pembrolizumab does today. I will re-stage him with another set of imaging. Will proceed with CT chest and abdomen. Will do a CT scan of the head in view of his headaches, to rule out brain metastasis. He will return next Monday for his next dose. The navigated is going to help him get through to [facility] to continue his oxygen therapy. Thank you' - Time Spent With Patient Total time spent is greater than 50% in coordination of care (as documented) at patient's floor/unit and/or counseling patient: 25 - 35 minutes
[2020-05-27 12:29] LABS: Alanine Aminotransferase 11 U/L (0-40); Albumin Level 3.9 g/dL (3.5-5.0); Alkaline Phosphatase 61 U/L (39-117); Anion Gap 13 (12-20); Aspartate Amino Transferase 12 U/L (5-37); Bilirubin Total 0.4 mg/dL (0.0-1.0); Blood Urea Nitrogen 12 mg/dL (9-16); Calcium 8.9 mg/dL (8.4-10.2); Carbon Dioxide 29 mmol/L (22-29); Chloride 102 mmol/L (96-108); Creatinine Clr Calc Pharmacy 126.7; Estimated Glomerular Filt Rate > 60; Glucose Random 118 mg/dL (60-115); Potassium 4.3 mmol/l (3.3-5.1); Sodium 140 mmol/L (135-145); Total Protein 6.5 g/dL (6.5-8.0)
--- NOTE | 2020-05-27 15:20 | MHC.HEMONCSW ---
CT CHEST, ABD AND HEAD WITH C WENT TO [facility] CLINICAL REVIEW. CASE# [id number] WAIT DECISION.
--- NOTE | 2020-05-27 15:46 | MHC.HEMONC ---
Pt here to see Dr Meléndez and was scheduled to get Keytruda but he had a lot of c/o. He is feeling more and more SOB and fatigued. He said I'm always in pain . Seen by Dr Meléndez. Treatment to be delayed and meanwhile pt will be scheduled for CT scans. Labs to be reviewed.
--- NOTE | 2020-05-28 11:20 | MHC.HEMONC ---
O2 [facility] - Pt. was here in follow up w Dr. Meléndez yesterday, he tells us that [facility] is not delivering his O2 lately. They told him they need an updated order. [facility] - [phone] - I called and spoke w Ofelia @ [facility] yesterday and she tells me that the original order came from [facility] pulmonary dept, but did not have a doctor's name, and that they require re-certification for proof of O2 need. Today I spoke w pt. navigator in Pulmonary dept, Mignon @ ext. [phone]. She tells me it looks like he was seen in consult in [address] Lugo while he was inpatient and home O2 must've been ordered. Wilfrid will require a new patient visit w our pulmonary dept for O2 evaluation. She will call me w this visit. I left message w pt. regarding this information. Will await return call from pulmonary w appt. date. Tomorrow's holiday may require appt be made the following week.
--- NOTE | 2020-06-05 | ECG_ITS ---
Test Reason : CP Blood Pressure : / mmHG Vent. Rate : 148 BPM Atrial Rate : 315 BPM P-R Int : 000 ms QRS Dur : 096 ms QT Int : 336 ms P-R-T Axes : 000 040 013 degrees QTc Int : 527 ms Atrial flutter with variable A-V block Nonspecific ST and T wave abnormality Abnormal ECG When compared with ECG of 18-APR-2017 22:32, Atrial flutter has replaced Sinus rhythm Vent. rate has increased BY [address] now depressed in Anterolateral leads Referred By: Bill Meléndez Electronically Signed By:Hussein Wood
[2020-06-05 11:15] VITALS: BP 118/80; O2SAT 96
[2020-06-05 11:19] LABS: MANUAL DIFF FLAG NO
[2020-06-05 11:23] LABS: Basophils Absolute Auto 0.1 X10*3/uL (0.0-0.2); Basophils Percent Auto 0.8 % (0-2); Eosinophils Absolute Auto 0.3 X10*3/uL (0.0-0.4); Eosinophils Percent Auto 3.4 % (0-4); Hematocrit 49.5 % (42-52); Hemoglobin 16.1 g/dl (14.0-18.0); Imm Gran Abs Auto 0.04 X10*3/uL (0.00-0.03); Imm Gran Pct Auto 0.4 % (0.0-0.4); Lymphocytes Absolute Auto 1.6 X10*3/uL (1.2-4.9); Mean Corpuscular HGB Conc 32.5 g/dl (31.0-36.0); Mean Corpuscular Hemoglobin 28.2 pg (27.0-33.0); Mean Corpuscular Volume 86.8 fL (80-98); Mean Platelet Volume 10.1 fL (9.4-12.4); Monocytes Absolute Auto 0.6 X10*3/uL (0.1-1.2); Monocytes Percent Auto 6.2 % (2-11); Neutrophils Absolute Auto 6.7 X10*3/uL (2.0-8.3); Neutrophils Percent Auto 72.2 % (45-73); Platelet Count 215 X10*3/uL (160-400); Red Cell Distribution Width 13.9 % (11.0-16.0); White Blood Count 9.2 X10*3/uL (4.8-10.8)
[2020-06-05 11:52] LABS: Alanine Aminotransferase 9 U/L (0-40); Alkaline Phosphatase 69 U/L (39-117); Anion Gap 16 (12-20); Aspartate Amino Transferase 13 U/L (5-37); Bilirubin Total 0.5 mg/dL (0.0-1.0); Blood Urea Nitrogen 9 mg/dL (9-16); Calcium 9.2 mg/dL (8.4-10.2); Carbon Dioxide 26 mmol/L (22-29); Chloride 103 mmol/L (96-108); Creatinine Clr Calc Pharmacy 136.1; Estimated Glomerular Filt Rate > 60; Glucose Random 135 mg/dL (60-115); Potassium 4.2 mmol/l (3.3-5.1); Sodium 141 mmol/L (135-145); Total Protein 6.8 g/dL (6.5-8.0)
--- NOTE | 2020-06-05 12:44 | MHC.HEMONC ---
Pt came in for Keytruda appt but he was not feeling well at all. He said he is increasingly SOB and diaphoretic. 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 He had Televisit with him and is seeing him on 06/25. Per note - plan was to do EKG and ECHO. Dr Meléndez advised. She ordered EKG here - pt in a-flutter rate in 150s. He was brought to ER per Dr Meléndez for management and probable admit. Pt r/s for immunotherapy next week Labs reviewed and WNL.
[2020-06-05 14:03] LABS: Troponin-I High Sensitivity < 3.5 ng/L (<3.5-35.0)
--- NOTE | 2020-06-05 16:30 | MHC.HEMONC ---
Per DR. Meléndez CTA negative for P.E. patient made aware. Patient educated to seek emergency medical attention if he developes increasing SOB, CP, palpitations and diaphoresis.oxycodone refilled per patient request.
[2020-06-12 11:26] VITALS: BMI 34.0
[2020-06-12 11:49] LABS: MANUAL DIFF FLAG NO
[2020-06-12 11:55] LABS: Basophils Absolute Auto 0.1 X10*3/uL (0.0-0.2); Basophils Percent Auto 0.7 % (0-2); Eosinophils Absolute Auto 0.4 X10*3/uL (0.0-0.4); Eosinophils Percent Auto 3.7 % (0-4); Hematocrit 46.5 % (42-52); Imm Gran Abs Auto 0.03 X10*3/uL (0.00-0.03); Imm Gran Pct Auto 0.3 % (0.0-0.4); Lymphocytes Absolute Auto 1.6 X10*3/uL (1.2-4.9); Lymphocytes Percent Auto 16.7 % (20-40); Mean Corpuscular HGB Conc 32.3 g/dl (31.0-36.0); Mean Corpuscular Hemoglobin 28.2 pg (27.0-33.0); Mean Corpuscular Volume 87.4 fL (80-98); Mean Platelet Volume 10.1 fL (9.4-12.4); Monocytes Absolute Auto 0.6 X10*3/uL (0.1-1.2); Monocytes Percent Auto 6.1 % (2-11); Neutrophils Absolute Auto 7.1 X10*3/uL (2.0-8.3); Neutrophils Percent Auto 72.5 % (45-73); Platelet Count 193 X10*3/uL (160-400); Red Blood Count 5.32 X10*6/uL (4.60-5.80); Red Cell Distribution Width 13.9 % (11.0-16.0); White Blood Count 9.7 X10*3/uL (4.8-10.8)
[2020-06-12 12:18] LABS: Alanine Aminotransferase 10 U/L (0-40); Albumin Level 3.9 g/dL (3.5-5.0); Alkaline Phosphatase 64 U/L (39-117); Anion Gap 13 (12-20); Aspartate Amino Transferase 11 U/L (5-37); Bilirubin Total 0.4 mg/dL (0.0-1.0); Blood Urea Nitrogen 10 mg/dL (9-16); Carbon Dioxide 28 mmol/L (22-29); Chloride 102 mmol/L (96-108); Creatinine Clr Calc Pharmacy 145.3; Estimated Glomerular Filt Rate > 60; Glucose Random 103 mg/dL (60-115); Potassium 4.2 mmol/l (3.3-5.1); Sodium 139 mmol/L (135-145); Total Protein 6.5 g/dL (6.5-8.0)
[2020-06-12 13:50] LABS: Thyroid Stimulating Hormone 3.62 uIU/mL (0.32-4.0)
[2020-06-12 14:13] VITALS: BP 154/94; PULSE 78; RESP 18; TEMP 36.3; O2SAT 97; BMI 34.0
--- NOTE | 2020-06-16 13:26 | MHC.HEMONCSW ---
DR. CHASE DID PEER TO PEER AND OBTAINED THE FOLLOWING AUTHORIZATIONS. I PLACED THEM IN O.F. THEY WILL SCHEDULE PATIENT. A# [id number] 06/16/20 TO 12/14/20. MRI BRAIN W&WO C AND CT ABD/PELVIS WITH C.
--- NOTE | 2020-06-18 13:49 | MHC.HEMONCMA ---
Spoke with patient, I let him know about the medication and the lab appt before his MRI. Patient states he does not want MRI at [facility], he would rather go to [facility] in the open MRI. I let Yolis know and she will work on it.
--- NOTE | 2020-06-18 16:15 | MHC.HEMONCSW ---
[facility] MRI FOR BRAIN NOT HERE DUE TO CLAUSTROPHOBIA AND REQUEST FOR AN OPEN AIR MRI. FAXED MD ORDER/CLINICALS TO [facility]. PATIENT IS AWARE THEY WILL CALL HIM WITH APPOINTMENT.
--- NOTE | 2020-06-19 08:34 | MHC.HEMONCSW ---
PET SCAN AT [facility] 06/26/20 3;30PM.
[2020-06-23 16:32] LABS: MANUAL DIFF FLAG NO
[2020-06-23 16:35] LABS: Basophils Absolute Auto 0.1 X10*3/uL (0.0-0.2); Basophils Percent Auto 0.6 % (0-2); Eosinophils Absolute Auto 0.3 X10*3/uL (0.0-0.4); Eosinophils Percent Auto 2.3 % (0-4); Hematocrit 49.2 % (42-52); Hemoglobin 16.1 g/dl (14.0-18.0); Imm Gran Abs Auto 0.05 X10*3/uL (0.00-0.03); Imm Gran Pct Auto 0.4 % (0.0-0.4); Lymphocytes Absolute Auto 2.3 X10*3/uL (1.2-4.9); Lymphocytes Percent Auto 16.9 % (20-40); Mean Corpuscular HGB Conc 32.7 g/dl (31.0-36.0); Mean Corpuscular Hemoglobin 28.2 pg (27.0-33.0); Mean Corpuscular Volume 86.3 fL (80-98); Mean Platelet Volume 9.9 fL (9.4-12.4); Monocytes Absolute Auto 0.9 X10*3/uL (0.1-1.2); Monocytes Percent Auto 6.4 % (2-11); Neutrophils Absolute Auto 10.1 X10*3/uL (2.0-8.3); Neutrophils Percent Auto 73.4 % (45-73); Platelet Count 245 X10*3/uL (160-400); Red Cell Distribution Width 13.5 % (11.0-16.0); White Blood Count 13.7 X10*3/uL (4.8-10.8)
--- NOTE | 2020-06-23 16:43 | MHC.HEMONC ---
Patient here for lab work. Labs drawn.
[2020-06-23 17:12] LABS: Alanine Aminotransferase 9 U/L (0-40); Albumin Level 4.2 g/dL (3.5-5.0); Alkaline Phosphatase 70 U/L (39-117); Anion Gap 14 (12-20); Aspartate Amino Transferase 12 U/L (5-37); Bilirubin Total 0.4 mg/dL (0.0-1.0); Blood Urea Nitrogen 8 mg/dL (9-16); Calcium 9.1 mg/dL (8.4-10.2); Carbon Dioxide 25 mmol/L (22-29); Chloride 104 mmol/L (96-108); Creatinine Clr Calc Pharmacy 125.4; Estimated Glomerular Filt Rate > 60; Glucose Random 122 mg/dL (60-115); Sodium 139 mmol/L (135-145)
--- NOTE | 2020-06-30 09:48 | MHC.HEMONCSW ---
SPOKE WITH TEENA Nava AT [facility] SCAN AT [facility] A# [id number] INFORMED PEPE AT [facility].
--- NOTE | 2020-06-30 14:23 | MHC.HEMONCMA ---
Patient notified that his rx was sent to the pharmacy. He will be coming in monday for an appt.
[2020-07-03 10:07] VITALS: BMI 33.1
[2020-07-07 11:57] LABS: MANUAL DIFF FLAG NO
[2020-07-07 12:03] VITALS: BP 146/92; PULSE 52; RESP 18; TEMP 36.8; O2SAT 98; BMI 33.2
[2020-07-07 12:07] LABS: Basophils Absolute Auto 0.1 X10*3/uL (0.0-0.2); Basophils Percent Auto 0.7 % (0-2); Eosinophils Absolute Auto 0.2 X10*3/uL (0.0-0.4); Eosinophils Percent Auto 2.3 % (0-4); Hematocrit 48.1 % (42-52); Hemoglobin 15.2 g/dl (14.0-18.0); Imm Gran Abs Auto 0.04 X10*3/uL (0.00-0.03); Imm Gran Pct Auto 0.4 % (0.0-0.4); Lymphocytes Absolute Auto 1.7 X10*3/uL (1.2-4.9); Lymphocytes Percent Auto 15.8 % (20-40); Mean Corpuscular HGB Conc 31.6 g/dl (31.0-36.0); Mean Corpuscular Hemoglobin 27.8 pg (27.0-33.0); Mean Corpuscular Volume 87.9 fL (80-98); Monocytes Absolute Auto 0.7 X10*3/uL (0.1-1.2); Monocytes Percent Auto 6.4 % (2-11); Neutrophils Absolute Auto 7.8 X10*3/uL (2.0-8.3); Neutrophils Percent Auto 74.4 % (45-73); Platelet Count 209 X10*3/uL (160-400); Red Blood Count 5.47 X10*6/uL (4.60-5.80); Red Cell Distribution Width 13.5 % (11.0-16.0); White Blood Count 10.5 X10*3/uL (4.8-10.8)
[2020-07-07 12:29] LABS: Alanine Aminotransferase 7 U/L (0-40); Albumin Level 3.9 g/dL (3.5-5.0); Alkaline Phosphatase 66 U/L (39-117); Anion Gap 13 (12-20); Aspartate Amino Transferase 12 U/L (5-37); Bilirubin Total 0.5 mg/dL (0.0-1.0); Blood Urea Nitrogen 8 mg/dL (9-16); Calcium 8.9 mg/dL (8.4-10.2); Carbon Dioxide 27 mmol/L (22-29); Chloride 103 mmol/L (96-108); Creatinine Clr Calc Pharmacy 150.5; Estimated Glomerular Filt Rate > 60; Glucose Random 116 mg/dL (60-115); Potassium 4.1 mmol/L (3.3-5.1); Sodium 139 mmol/L (135-145); Total Protein 6.7 g/dL (6.5-8.0)
--- NOTE | 2020-07-07 14:21 | MHC.HEMONC ---
Pt here for chemo treatment. Labs drawn and reviewed. IV placed. Pt has appointment for CT scan today at 2pm, contrast given pt to drink. Treatment done, and pt to CT scan. Scheduled to return for next treatment on 07/24.
--- NOTE | 2020-07-08 09:44 | MHC.HEMONCSW ---
PATIENT SEEN YESTERDAY WHILE HERE FOR TREATMENT. REMAINS INDEPENDENT. FEELS FRUSTRATED WITH DISEASE, THE UPS AND DOWNS OF THE ILLNESS. OFFERS NO OTHER COMPLAINTS AT THIS TIME. EDUCATION AND SUPPORT PROVIDED.
--- NOTE | 2020-07-14 09:52 | MHC.HEMONCMA ---
Patient called in a refill request for both his long and short acting medications. I will let Dr Meléndez know and I will call the patient when she sends the meds to his pharmacy. Patient is ok with this plan.
[2020-07-30 13:27] VITALS: BP 141/88; PULSE 89; RESP 18; TEMP 36.7; O2SAT 98; BMI 33.3
[2020-07-30 13:35] LABS: MANUAL DIFF FLAG NO
[2020-07-30 13:39] LABS: Basophils Absolute Auto 0.1 X10*3/uL (0.0-0.2); Basophils Percent Auto 0.5 % (0-2); Eosinophils Absolute Auto 0.3 X10*3/uL (0.0-0.4); Eosinophils Percent Auto 3.2 % (0-4); Hemoglobin 14.2 g/dl (14.0-18.0); Imm Gran Abs Auto 0.02 X10*3/uL (0.00-0.03); Imm Gran Pct Auto 0.2 % (0.0-0.4); Lymphocytes Absolute Auto 1.8 X10*3/uL (1.2-4.9); Lymphocytes Percent Auto 17.8 % (20-40); Mean Corpuscular HGB Conc 32.3 g/dl (31.0-36.0); Mean Corpuscular Hemoglobin 27.8 pg (27.0-33.0); Mean Corpuscular Volume 86.3 fL (80-98); Mean Platelet Volume 9.8 fL (9.4-12.4); Monocytes Absolute Auto 0.7 X10*3/uL (0.1-1.2); Monocytes Percent Auto 6.8 % (2-11); Neutrophils Absolute Auto 7.1 X10*3/uL (2.0-8.3); Neutrophils Percent Auto 71.5 % (45-73); Platelet Count 196 X10*3/uL (160-400); Red Cell Distribution Width 13.5 % (11.0-16.0); White Blood Count 9.9 X10*3/uL (4.8-10.8)
[2020-07-30 14:08] LABS: Alanine Aminotransferase 6 U/L (0-40); Albumin Level 3.8 g/dL (3.5-5.0); Alkaline Phosphatase 60 U/L (39-117); Anion Gap 15 (12-20); Aspartate Amino Transferase 15 U/L (5-37); Bilirubin Total 0.5 mg/dL (0.0-1.0); Blood Urea Nitrogen 11 mg/dL (9-16); Calcium 8.9 mg/dL (8.4-10.2); Carbon Dioxide 26 mmol/L (22-29); Chloride 103 mmol/L (96-108); Creatinine Clr Calc Pharmacy 150.6; Estimated Glomerular Filt Rate > 60; Glucose Random 115 mg/dL (60-115); Potassium 4.7 mmol/L (3.3-5.1); Sodium 139 mmol/L (135-145); Total Protein 6.8 g/dL (6.5-8.0)
[2020-07-30 14:32] LABS: Thyroid Stimulating Hormone 2.13 uIU/mL (0.32-4.0)
--- NOTE | 2020-07-30 15:44 | MHC.HEMONC ---
Pt doing fairly well on oral chemo and Pembrolizumab. Labs reviewed and WNL. He has no new c/o and pain is fairly well controlled on ER Morphine and Oxycodone.
--- NOTE | 2020-08-19 13:31 | HO.HEMONCPA ---
PA not required for radha Gomez/rajesh Rodriguez at [facility]. Ref#[id number]
[2020-08-20 13:09] VITALS: BP 146/97; PULSE 89; RESP 20; TEMP 36.2; O2SAT 97; BMI 32.5
[2020-08-20 13:16] LABS: MANUAL DIFF FLAG NO
[2020-08-20 13:22] LABS: Basophils Absolute Auto 0.1 X10*3/uL (0.0-0.2); Basophils Percent Auto 0.7 % (0-2); Eosinophils Absolute Auto 0.5 X10*3/uL (0.0-0.4); Eosinophils Percent Auto 5.4 % (0-4); Hematocrit 46.5 % (42-52); Imm Gran Abs Auto 0.02 X10*3/uL (0.00-0.03); Imm Gran Pct Auto 0.2 % (0.0-0.4); Lymphocytes Absolute Auto 2.1 X10*3/uL (1.2-4.9); Lymphocytes Percent Auto 20.6 % (20-40); Mean Corpuscular HGB Conc 32.3 g/dl (31.0-36.0); Mean Corpuscular Hemoglobin 27.8 pg (27.0-33.0); Mean Corpuscular Volume 86.3 fL (80-98); Mean Platelet Volume 9.6 fL (9.4-12.4); Monocytes Absolute Auto 0.6 X10*3/uL (0.1-1.2); Monocytes Percent Auto 5.8 % (2-11); Neutrophils Absolute Auto 6.8 X10*3/uL (2.0-8.3); Neutrophils Percent Auto 67.3 % (45-73); Platelet Count 189 X10*3/uL (160-400); Red Blood Count 5.39 X10*6/uL (4.60-5.80); Red Cell Distribution Width 14.3 % (11.0-16.0); White Blood Count 10.1 X10*3/uL (4.8-10.8)
[2020-08-20 13:53] LABS: Alanine Aminotransferase 8 U/L (0-40); Albumin Level 4.1 g/dL (3.5-5.0); Alkaline Phosphatase 73 U/L (39-117); Anion Gap 16 (12-20); Aspartate Amino Transferase 13 U/L (5-37); Bilirubin Total 0.4 mg/dL (0.0-1.0); Blood Urea Nitrogen 10 mg/dL (9-16); Calcium 8.9 mg/dL (8.4-10.2); Carbon Dioxide 23 mmol/L (22-29); Chloride 106 mmol/L (96-108); Creatinine Clr Calc Pharmacy 134.7; Estimated Glomerular Filt Rate > 60; Glucose Random 109 mg/dL (60-115); Potassium 4.3 mmol/L (3.3-5.1); Sodium 141 mmol/L (135-145); Total Protein 7.1 g/dL (6.5-8.0)
--- NOTE | 2020-08-20 15:31 | MHC.HEMONC ---
Pt here for Cycle 10 day 1 of Pembrolizumab IV. Peripheral lab draw-specimen sent to lab. #22 angio inserted in left hand. 0.9% NS infusing. Lab results reviewed. Pembrolizumab IV given as ordered. Tolerated well. Follow up appointment mad. Pt declines discharge education, or calendar for next appointment. Peripheral IV removed from left hand-no edema or redness at site.
[2020-09-17 10:56] VITALS: BP 147/113; PULSE 86; RESP 18; TEMP 36.4; O2SAT 99; BMI 33.5
[2020-09-17 11:30] LABS: MANUAL DIFF FLAG NO
[2020-09-17 11:56] LABS: Basophils Absolute Auto 0.1 X10*3/uL (0.0-0.2); Basophils Percent Auto 0.8 % (0-2); Eosinophils Absolute Auto 1.5 X10*3/uL (0.0-0.4); Eosinophils Percent Auto 13.5 % (0-4); Hematocrit 48.7 % (42-52); Hemoglobin 15.7 g/dl (14.0-18.0); Imm Gran Abs Auto 0.02 X10*3/uL (0.00-0.03); Imm Gran Pct Auto 0.2 % (0.0-0.4); Lymphocytes Absolute Auto 2.2 X10*3/uL (1.2-4.9); Lymphocytes Percent Auto 20.3 % (20-40); Mean Corpuscular HGB Conc 32.2 g/dl (31.0-36.0); Mean Corpuscular Hemoglobin 28.5 pg (27.0-33.0); Mean Corpuscular Volume 88.5 fL (80-98); Mean Platelet Volume 10.3 fL (9.4-12.4); Monocytes Absolute Auto 0.5 X10*3/uL (0.1-1.2); Monocytes Percent Auto 4.6 % (2-11); Neutrophils Absolute Auto 6.7 X10*3/uL (2.0-8.3); Neutrophils Percent Auto 60.6 % (45-73); Platelet Count 184 X10*3/uL (160-400); Red Cell Distribution Width 14.8 % (11.0-16.0)
[2020-09-17 12:19] LABS: Alanine Aminotransferase 7 U/L (0-40); Albumin Level 4.1 g/dL (3.5-5.0); Alkaline Phosphatase 75 U/L (39-117); Anion Gap 12 (12-20); Aspartate Amino Transferase 13 U/L (5-37); Bilirubin Total 0.4 mg/dL (0.0-1.0); Blood Urea Nitrogen 9 mg/dL (9-16); Calcium 8.6 mg/dL (8.4-10.2); Carbon Dioxide 26 mmol/L (22-29); Chloride 106 mmol/L (96-108); Creatinine Clr Calc Pharmacy 147.8; Estimated Glomerular Filt Rate > 60; Glucose Random 108 mg/dL (60-115); Potassium 4.4 mmol/L (3.3-5.1); Sodium 140 mmol/L (135-145); Total Protein 6.6 g/dL (6.5-8.0)
[2020-09-17 12:39] LABS: Thyroid Stimulating Hormone 1.78 uIU/mL (0.32-4.0)
--- NOTE | 2020-09-17 14:06 | MHC.HEMONC ---
Cycle 11 Day 1: Keytruda well tolerated. No complaints at this time. Peripheral #22 left hand. Positive blood return. Patient has refused pre-medications. Follow up exam made with next treatment.
--- NOTE | 2020-09-17 14:20 | MHC.HEMONCSW ---
MET WITH PATIENT WHILE HE RECEIVED TREATMENT. REPORTS COPING WELL, HAS BEEN DOING WELL PHYSICALLY AND EMOTIONALLY. DISCUSSED VARIETY OF ISSUES AND VARIOUS CANCER COPING STRATEGIES. DENIES DISTRESS. REMAINS NOT WANTING COUNSELING. SUPPORTIVE COUNSELING PROVIDED.
[2020-10-08 10:32] VITALS: BP 134/76; PULSE 92; RESP 18; TEMP 36.2; O2SAT 98; BMI 33.1
[2020-10-08 11:24] LABS: MANUAL DIFF FLAG NO
[2020-10-08 11:34] LABS: Basophils Absolute Auto 0.1 X10*3/uL (0.0-0.2); Basophils Percent Auto 0.7 % (0-2); Eosinophils Absolute Auto 0.9 X10*3/uL (0.0-0.4); Eosinophils Percent Auto 7.9 % (0-4); Hematocrit 50.7 % (42-52); Hemoglobin 16.4 g/dl (14.0-18.0); Imm Gran Abs Auto 0.04 X10*3/uL (0.00-0.03); Imm Gran Pct Auto 0.4 % (0.0-0.4); Lymphocytes Percent Auto 18.6 % (20-40); Mean Corpuscular HGB Conc 32.3 g/dl (31.0-36.0); Mean Corpuscular Volume 89.7 fL (80-98); Mean Platelet Volume 9.8 fL (9.4-12.4); Monocytes Absolute Auto 0.5 X10*3/uL (0.1-1.2); Monocytes Percent Auto 4.6 % (2-11); Neutrophils Absolute Auto 7.3 X10*3/uL (2.0-8.3); Neutrophils Percent Auto 67.8 % (45-73); Platelet Count 209 X10*3/uL (160-400); Red Blood Count 5.65 X10*6/uL (4.60-5.80); Red Cell Distribution Width 15.5 % (11.0-16.0); White Blood Count 10.8 X10*3/uL (4.8-10.8)
[2020-10-08 11:58] LABS: Alanine Aminotransferase 10 U/L (0-40); Albumin Level 4.5 g/dL (3.5-5.0); Alkaline Phosphatase 73 U/L (39-117); Anion Gap 12 (12-20); Aspartate Amino Transferase 13 U/L (5-37); Bilirubin Total 0.6 mg/dL (0.0-1.0); Blood Urea Nitrogen 12 mg/dL (9-16); Calcium 9.4 mg/dL (8.4-10.2); Carbon Dioxide 27 mmol/L (22-29); Chloride 104 mmol/L (96-108); Creatinine Clr Calc Pharmacy 128.9; Estimated Glomerular Filt Rate > 60; Glucose Random 120 mg/dL (60-115); Potassium 4.7 mmol/L (3.3-5.1); Sodium 138 mmol/L (135-145); Total Protein 7.1 g/dL (6.5-8.0)
--- NOTE | 2020-10-08 13:34 | P.PNHO_ITS ---
Medical Summary - Medical Summary Date of Service: 10/08/20 Chief complaint: Follow-up for: Metastatic renal cell carcinoma. Medical Summary: DIAGNOSIS: Metastatic renal cell carcinoma. Pulmonary metastases. Hypercalcemia. PATHOLOGY: Right paratracheal lymph node: Metastatic carcinoma with morphologic and immunohistochemical features consistent with origin from a renal primary. Right upper lobe bronchial mass: Fragment of bronchial mucosa with associated thrombus the latter containing few malignant cells similar to those seen in the specimen A. Immunostains revealed: CK AE1 to AE 3: Positive, CK7: Negative, CK 20: Negative. [place] 8: Positive. RCC: Positive. RCC: Positive. TTF 1: Negative. S100: Negative. Confirmed renal cell carcinoma. CURRENT THERAPY: 1. Status post cytoreductive nephrectomy. 2. RT to lung. 3. Pazopanib started mid December 2016. 4. Nivolumab started 04/24/2017. 5. Yervoy, added 07/20/2018. Fourth dose 09/28/18. 6. Pembrolizumab started January 03, 2020. Interval History Interval history: This is a pleasant 40-year-old gentleman here for a follow-up visit. He tells me, so far so good . Lately he has been feeling really well. He is having better days. He has noticed that when he gets excited, he gets rather anxious even to the point that he starts having a panic attack. He gets palpitations. Sometimes he has chest tightness and even shortness of breath. This happens when he is close to winning a video game. He he denies chest pain cough nor sputum. He is under the care of Cardiology. They did event monitor that was just taken off today. He has to follow-up with Dr. Garcia. Notes from him: This is a 40-year-old gentleman with history of metastatic renal cancer and is on chemotherapy. Hence to get him through chemo, we had maintained him for a while on amiodarone for suppressing the atrial fibrillation. Then in a previous visit, we had stopped the amiodarone. For a period of time, he was not taking anything at all. Then in last visit he was in atrial fibrillation and hence we put him back on Cardizem along with flecainide. He still gets palpitations a few times a week but states that he feels that only for a few seconds to a minute or so. When he came for the echocardiogram, he was in atrial fibrillation. Today again in the office he is in atrial flutter, but he states that he is not feeling it. Overall, not clear if he is going in and out of atrial fibrillation or he is in it all the time but just does not feel it much. He denies abdominal pain nausea vomiting heartburn or indigestion. His bowels are working without any gross blood in it. He enjoys a good appetite. His weight is stable. He denies any focal neurological deficits. He is in good spirits. Rest of the review of systems is unremarkable. His daughter is turning to in a week. Previous history: He has had symptoms of dysphagia. Especially when he eats something bulky like bread, it gets caught in his throat and he has to drink liquids to push it down. He had an barium swallow which was actually negative. Review of Systems - Constitutional Reports no additional constitutional complaints - Eyes Reports no additional eye complaints - ENT Reports no additional ear, nose, mouth, and throat complaints - Cardiovascular Reports no additional cardiovascular complaints - Respiratory Reports no additional respiratory complaints - Gastrointestinal Reports no additional gastrointestinal complaints - Genitourinary Genitourinary: Reports no additional male genitourinary complaints - Musculoskeletal Reports no additional musculoskeletal complaints - Integumentary/Breasts Skin/Breast: Reports no additional skin complaints - Neurologic Reports no additional neurologic complaints - Psychiatric Reports no additional psychiatric complaints - Endocrine Reports no additional endocrine complaints - Hematologic/Lymphatic Reports no additional hematologic/lymphatic complaints - Allergic/Immunologic Reports no additional allergic/immunologic complaints [facility] Medical History: Medical History (Last Reviewed 07/20/20 @ 16:58 by Alexander Lugo MD) Atrial fibrillation 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 Surgical History: Surgical History (Last Updated 09/23/20 @ 14:39 by EVAN Vazquez) History of kidney removal Onset Date: ~2016 Social History: Social History (Last Reviewed 09/23/20 @ 14:38 by EVAN Vazquez) Tobacco History: Smoking Status: Current every day smoker Advance Directives: Advance Directives: Yes Advance Directives Information Provided: No Advance Directives Information Provided comment: has it at home Advance Directives on File: No Advance Directives on File comment: at home Nutrition Assessment: Patient : No Smoking status: Current every day smoker Oncology Screenings - ECOG Performance Status ECOG Performance Status: 0 Home Medications and Allergies Current Medications: Current Medications Generic Name Dose Route Start Last Admin Trade Name Freq PRN Reason Stop Dose Admin Acetaminophen 650 mg 10/08/20 00:00 Acetaminophen 325 Mg Tablet PO 10/08/20 23:59 ONCE ANDRA Dexamethasone 8 mg 10/08/20 00:00 Dexamethasone 4 Mg Tablet PO 10/08/20 23:59 ONCE ANDRA Diphenhydramine HCl 25 mg 10/08/20 00:00 Diphenhydramine Hcl 50 Mg/Ml Vial IVPUSH 10/08/20 23:59 ONCE ANDRA Heparin Sodium (Porcine) 500 unit 10/08/20 00:00 Heparin Sodium,Porcine Flush 500 Unit/5 Ml Syringe IVFLUSH 10/08/20 23:59 ONCE ANDRA Ondansetron HCl 16 mg in 50 mls @ 200 mls/hr 10/08/20 00:00 Zofran IV 10/08/20 23:59 ONCE ANDRA Pembrolizumab 200 mg/ Sodium 58 mls @ 116 mls/hr 10/08/20 00:00 10/08/20 13:19 Chloride IV 10/08/20 23:59 116 mls/hr ONCE ANDRA Administration Home Medications Medication Instructions Recorded Confirmed Type albuterol sulfate 1 puff PO Q4H PRN 03/12/20 09/23/20 History axitinib [Inlyta] 5 mg PO BID 03/12/20 09/23/20 History ondansetron HCl 1 - 2 tab PO Q8H PRN 03/12/20 09/23/20 History Allergies Allergy/AdvReac Type Severity Reaction Status Date / Time No Known Allergies Allergy Verified 09/23/20 14:38 Exam Vital signs: Vital Signs Temp 97.1 F 10/08/20 10:32 Pulse 92 10/08/20 10:32 Resp 18 10/08/20 10:32 BP 134/76 10/08/20 10:32 Pulse Ox 98 10/08/20 10:32 Intake & Output 10/07/20 10/08/20 10/08/20 18:59 06:59 18:59 Other: Weight 111.1 kg Weight in Grams [id number] Weight 111.1 kg Body Mass Index 33.1 - Constitutional Present: no acute distress - Routine HEENT Exam Head: Present: normal inspection Eye: Present: normal appearance ENT: Present: mucous membranes moist - Routine Neck Exam Present: full ROM - Routine Respiratory Exam Present: CTAB - Routine Cardiovascular Exam Cardiovascular: Present: RRR, S1, S2 - Routine Abdominal Exam Present: soft, nontender - Routine Extremities Exam Present: nontender - Routine Back/Spine/Pelvis Exam Back/Spine: Present: full ROM - Routine Skin Exam Present: intact - Routine Neurological Exam Present: alert, oriented X3 - Routine Psychiatric Exam Present: normal affect Data - Labs CBC & Chem 7: 10/08/20 11:23 10/08/20 11:23 Labs: 02/28/20 14:05 CMP [Comprehensive Met. Panel] Routine Complete Blood Count Auto Diff Routine 03/12/20 00:00 Heparin Sodium,Porcine Flush 500 unit IVFLUSH ONCE Pembrolizumab [Keytruda] 200 mg 0.9 % Sodium Chloride [Ns] 50 ml IV ONCE dexAMETHasone sod phosphate/NS [Decadron] 12 mg in 50 ml IV ONCE ondansetron HCL/NS [Zofran] 16 mg in 50 ml IV ONCE 03/12/20 11:46 Complete Blood Count Auto Diff Routine Comprehensive Met. Panel Routine Thyroid Stimulating Hormone Routine 03/12/20 16:04 Add Laboratory Test Routine 04/02/20 00:00 Acetaminophen [Tylenol] 650 mg PO ONCE Heparin Sodium,Porcine Flush 500 unit IVFLUSH ONCE diphenhydrAMINE HCL [Benadryl] 25 mg PO ONCE ondansetron HCL/NS [Zofran] 16 mg in 50 ml IV ONCE 04/02/20 11:16 Complete Blood Count Auto Diff Routine Comprehensive Met. Panel Routine Thyroid Stimulating Hormone Routine 04/03/20 00:00 Acetaminophen [Tylenol] 650 mg PO ONCE Heparin Sodium,Porcine Flush 500 unit IVFLUSH ONCE Pembrolizumab [Keytruda] 200 mg 0.9 % Sodium Chloride [Ns] 50 ml IV ONCE diphenhydrAMINE HCL [Benadryl] 25 mg PO ONCE ondansetron HCL/NS [Zofran] 16 mg in 50 ml IV ONCE 04/03/20 10:30 Add Laboratory Test Stat 04/30/20 00:00 Heparin Sodium,Porcine Flush 500 unit IVFLUSH ONCE diphenhydrAMINE HCL [Benadryl] 25 mg PO ONCE ondansetron ODT [Zofran ODT] 8 mg TRANSLINGU ONCE 05/01/20 00:00 Pembrolizumab [Keytruda] 200 mg 0.9 % Sodium Chloride [Ns] 50 ml IV ONCE 05/01/20 12:26 Complete Blood Count Auto Diff Routine Comprehensive Met. Panel Routine 05/27/20 00:00 Heparin Sodium,Porcine Flush 500 unit IVFLUSH ONCE ondansetron HCL/NS [Zofran] 16 mg in 50 ml IV ONCE 05/27/20 11:20 Complete Blood Count Auto Diff Routine Comprehensive Met. Panel Routine 06/05/20 ECG 12 lead EKG Routine 06/05/20 00:00 Heparin Sodium,Porcine Flush 500 unit IVFLUSH ONCE ondansetron HCL/NS [Zofran] 16 mg in 50 ml IV ONCE 06/05/20 11:10 CMP [Comprehensive Met. Panel] Routine Complete Blood Count Auto Diff Routine Troponin-I High Sensitivity Routine 06/12/20 00:00 Heparin Sodium,Porcine Flush 500 unit IVFLUSH ONCE Pembrolizumab [Keytruda] 200 mg 0.9 % Sodium Chloride [Ns] 50 ml IV ONCE ondansetron HCL/NS [Zofran] 16 mg in 50 ml IV ONCE 06/12/20 11:30 CMP [Comprehensive Met. Panel] Routine Complete Blood Count Auto Diff Routine Thyroid Stimulating Hormone Routine 06/23/20 16:29 CMP [Comprehensive Met. Panel] Routine Complete Blood Count Auto Diff Routine 07/03/20 00:00 Heparin Sodium,Porcine Flush 500 unit IVFLUSH ONCE ondansetron HCL/NS [Zofran] 16 mg in 50 ml IV ONCE 07/07/20 00:00 Heparin Sodium,Porcine Flush 500 unit IVFLUSH ONCE Pembrolizumab [Keytruda] 200 mg 0.9 % Sodium Chloride [Ns] 50 ml IV ONCE ondansetron HCL/NS [Zofran] 16 mg in 50 ml IV ONCE 07/07/20 11:52 CMP [Comprehensive Met. Panel] Routine Complete Blood Count Auto Diff Routine 07/24/20 00:00 Heparin Sodium,Porcine Flush 500 unit IVFLUSH ONCE 07/30/20 00:00 Heparin Sodium,Porcine Flush 500 unit IVFLUSH ONCE Pembrolizumab [Keytruda] 200 mg 0.9 % Sodium Chloride [Ns] 50 ml IV ONCE 07/30/20 13:30 Complete Blood Count Auto Diff Routine Comprehensive Met. Panel Routine Thyroid Stimulating Hormone Routine 07/30/20 13:59 Add Laboratory Test Routine 08/20/20 00:00 Heparin Sodium,Porcine Flush 500 unit IVFLUSH ONCE Pembrolizumab [Keytruda] 200 mg 0.9 % Sodium Chloride [Ns] 50 ml IV ONCE dexAMETHasone [Decadron] 8 mg PO ONCE ondansetron ODT [Zofran ODT] 8 mg TRANSLINGU ONCE 08/20/20 13:15 Complete Blood Count Auto Diff Routine Comprehensive Met. Panel Routine 09/10/20 00:00 Heparin Sodium,Porcine Flush 500 unit IVFLUSH ONCE dexAMETHasone [Decadron] 8 mg PO ONCE diphenhydrAMINE HCL [Benadryl] 25 mg PO ONCE ondansetron ODT [Zofran ODT] 8 mg TRANSLINGU ONCE 09/17/20 00:00 Heparin Sodium,Porcine Flush 500 unit IVFLUSH ONCE Pembrolizumab [Keytruda] 200 mg 0.9 % Sodium Chloride [Ns] 50 ml IV ONCE dexAMETHasone [Decadron] 8 mg PO ONCE diphenhydrAMINE HCL [Benadryl] 25 mg PO ONCE ondansetron ODT [Zofran ODT] 8 mg TRANSLINGU ONCE 09/17/20 10:58 Complete Blood Count Auto Diff Routine Comprehensive Met. Panel Routine TSH [Thyroid Stimulating Hormone] Routine 10/08/20 11:23 Complete Blood Count Auto Diff Routine Comprehensive Met. Panel Routine Laboratory Last Values WBC 10.8 X10*3/uL (4.8-10.8) 10/08/20 11:23 RBC 5.65 X10*6/uL (4.60-5.80) 10/08/20 11:23 Hgb 16.4 g/dl (14.0-18.0) 10/08/20 11:23 Hct 50.7 % (42-52) 10/08/20 11:23 MCV 89.7 fL (80-98) 10/08/20 11:23 MCH 29.0 pg (27.0-33.0) 10/08/20 11: MCHC 32.3 g/dl (31.0-36.0) 10/08/20 11: RDW 15.5 % (11.0-16.0) 10/08/20 11:23 Plt Count 209 X10*3/uL (160-400) 10/08/20 11:23 MPV 9.8 fL (9.4-12.4) 10/08/20 11:23 Immature Gran % (Auto) 0.4 % (0.0-0.4) 10/08/20 11: Neut % (Auto) 67.8 % (45-73) 10/08/20 11: Lymph % (Auto) 18.6 % (20-40) L 10/08/20 11: [place] % (Auto) 4.6 % (2-11) 10/08/20 11:23 Eos % (Auto) 7.9 % (0-4) H 10/08/20 11:23 Baso % (Auto) 0.7 % (0-2) 10/08/20 11:23 Neut # (Auto) 10.7 X10*3/uL (2.0-8.3) H 02/28/20 14:05 Lymph # (Auto) 2.0 X10*3/uL (1.2-4.9) 10/08/20 11:23 [place] # (Auto) 0.5 X10*3/uL (0.1-1.2) 10/08/20 11:23 Eos # (Auto) 0.9 X10*3/uL (0.0-0.4) H 10/08/20 11:23 Baso # (Auto) 0.1 X10*3/uL (0.0-0.2) 10/08/20 11:23 Abs Immat Gran (auto) 0.04 X10*3/uL (0.00-0.03) H 10/08/20 11:23 Absolute Neuts (auto) 7.3 X10*3/uL (2.0-8.3) 10/08/20 11: Absolute Nucleated RBC 0.000 X10*3/uL (0.0-0.012) 10/08/20 11:23 Nucleated RBC % (auto) 0.0 /100WBC (0.0-0.2) 10/08/20 11:23 Sodium 138 mmol/L (135-145) 10/08/20 11:23 Potassium 4.7 mmol/L (3.3-5.1) 10/08/20 11:23 Chloride 104 mmol/L (96-108) 10/08/20 11:23 Carbon Dioxide 27 mmol/L (22-29) 10/08/20 11:23 Anion Gap 12 (12-20) 10/08/20 11:23 BUN 12 mg/dL (9-16) 10/08/20 11:23 Creatinine 0.98 mg/dL (0.5-1.4) 10/08/20 11:23 Estim Creat Clear Calc 128.9 10/08/20 11:23 Estimated GFR > 60 10/08/20 11:23 Random Glucose 120 mg/dL (60-115) H 10/08/20 11:23 Calcium 9.4 mg/dL (8.4-10.2) D 10/08/20 11:23 Total Bilirubin 0.6 mg/dL (0.0-1.0) 10/08/20 11:23 AST 13 U/L (5-37) 10/08/20 11:23 ALT 10 U/L (0-40) 10/08/20 11:23 Alkaline Phosphatase 73 U/L (39-117) 10/08/20 11:23 Troponin I High Sens < 3.5 ng/L (<3.5-35.0) 06/05/20 11:10 Total Protein 7.1 g/dL (6.5-8.0) 10/08/20 11:23 Albumin 4.5 g/dL (3.5-5.0) 10/08/20 11:23 TSH 1.78 uIU/mL (0.32-4.0) 09/17/20 10:58 Progress Note: A/P (1) Metastatic renal cell carcinoma Problem details: 2017 Status: Acute Assessment and plan: This is a pleasant 40-year-old gentleman with a history of metastatic renal cell carcinoma, diagnosed in September of 2016. He had pulmonary metastases. He had hemoptysis. He received radiation therapy to the chest to control it. He underwent cytoreductive nephrectomy by Dr. More at [facility]. He was on pazopanib. He developed recurrence. He was not a candidate for protocol based therapy. He was given nivolumab, started April 17, 2017. CT of the chest from June 2018 revealed: Significant increase in size of large centrally necrotic conglomerate olga lidia mass measuring up to 4.8 cm compared to 2.4 cm. He was then started on combination of ipilimumab with nivolumab 07/20/2018. Repeat imaging 02/22/2019: Interval decrease in size of the left upper lobe pulmonary nodule compared to previous exam. No suspicious pulmonary nodule. Unchanged enhancing hepatic lesions. Unchanged 1.7 cm nodular structure along the posterior margin of the IVC in right upper abdomen. He was continued on the same therapy. CT scan of the abdomen and chest from 12/23/19, revealed: 1 cm pretracheal and precarinal and large heterogenous subcarinal lymph node measuring 5.5 x 3.4 cm. Previously it measured 0.6 x 2.8 cm. It has increased in size. Abnormal right hilar 1.1 cm and left hilar smaller lymph nodes. Mild hepatomegaly with small hypodensity adjacent to the right hemidiaphragm in the right hepatic lobe and paraspinal soft tissue appear to be stable. In view of the progression he was switched over to pembrolizumab and axitinib based regimen. He has been tolerating it well up till now. However he has noted symptoms of palpitations, shortness of breath and fatigue. He has episode ache AFib. He is under the care of Dr. Garcia for that. PLAN: He will receive his pembrolizumab dose today. I will re-stage him with another set of imaging. Will proceed with CT chest and abdomen. If all is well, he will return in a couple of weeks, for his next dose. Thank you, CC: Dr. Dawn. - Time Spent With Patient Total time spent is greater than 50% in coordination of care (as documented) at patient's floor/unit and/or counseling patient: 25 - 35 minutes
--- NOTE | 2020-10-08 14:12 | MHC.HEMONC ---
Pt here for C12 D1 of treatment. States feeling good today. Labs drawn and reviewed. IV started right AC. Pt refuses premeds, stating he takes zofran at home, and declines other meds. Keytruda infused, and pt tolerated well. Dr Meléndez in to see pt in follow up. Scheduled to return in 3 weeks for next treatment.
--- NOTE | 2020-10-09 08:17 | MHC.HEMONC ---
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
== END 2020-10-16 | disposition home or self-care (01) ==
LOC: HO.ONC 15:00
PROVIDERS: PCP Nurse Practitioner Family; Visit Provider Internal Medicine Medical Oncology
DX: Z51.11 Encounter for antineoplastic chemotherapy (principal); C64.9 Malignant neoplasm of unspecified kidney, except renal pelvis; C78.00 Secondary malignant neoplasm of unspecified lung
CPT/HCPCS: 36415; 80053; 84443; 84484; 85025; 93005; 96375; 96413; 96415; 96417; 99214; J1100; J2405; J9271

== ENCOUNTER 2020-10-16 21:55 | Inpatient (IN) | payer OTHER, SELFPAY ==
--- NOTE | ~2020-10-16 | CT_ITS ---
EXAMINATION: CT ANGIOGRAM OF THE CHEST; CONTRAST-ENHANCED CT OF THE ABDOMEN AND PELVIS INDICATION: Cardiac arrest of unknown reason, unresponsive COMPARISON: Multiple priors, most recent CT abdomen 07/07/2020 TECHNIQUE: 85 mL Omnipaque 350 IV contrast was utilized. Multidetector helical imaging was performed through the chest per PE protocol. Coronal, sagittal, and MIP images of the chest were created. In addition, multidetector helical imaging was performed through the abdomen and pelvis. Coronal and sagittal reformatted images were created at the technologist workstation. DOSE LOWERING TECHNIQUES: This CT examination was performed using dose optimization techniques as appropriate, variously including the following: - Automated exposure control - Adjustment of mA and/or kV according to patient size (this includes techniques or standardized protocols for targeted exams were dose is matched to indication/reason for exam; i.e. extremities or head) - Use of iterative reconstruction technique DLP: 1771 mGy-cm FINDINGS: Limited evaluation throughout the chest, abdomen, and pelvis due to patient motion artifact. Chest: Significantly limited evaluation for pulmonary emboli due to respiratory motion artifact. While no central pulmonary embolus is seen, the possibility of emboli beyond the main pulmonary arteries cannot be excluded. Endotracheal tube tip lies approximately 1 cm beyond the sena in the right mainstem bronchus. Limited evaluation of the lung parenchyma due to motion artifact. There is patchy opacity in the right perihilar region. Dependent atelectasis noted in the left lower lobe. No pleural effusions or and appreciable pneumothorax. No mediastinal lymphadenopathy is seen. Cardiac size is within normal limits; no pericardial effusion. The aorta is unremarkable. No axillary lymphadenopathy is present. There is heterogeneous soft tissue attenuation in the subcutaneous left chest wall suspicious for contusion in the setting of rib fractures. There are anterior right rib and anterior/anterolateral left rib fractures involving at least ribs 2-7 bilaterally, with detail limited due to motion artifact. Some of the left rib fractures are displaced, especially the fourth rib fracture. Abdomen/Pelvis: The liver is homogeneous in attenuation without intrahepatic biliary ductal dilatation. Previously identified liver lesions are not well assessed on this study, likely obscured by motion artifact. Small amount of perihepatic fluid is present. The gallbladder is suboptimally assessed due to motion artifact. The spleen is grossly unremarkable. There is partial fatty atrophy of the pancreas. Adrenal glands appear unremarkable. The right kidney is absent; suboptimal assessment of the nephrectomy bed due to motion artifact. The left kidney appears unremarkable, without hydronephrosis. The urinary bladder is unremarkable. The prostate and seminal vesicles are unremarkable. Limited evaluation of the bowel due to motion artifact. No evidence of obstruction. There is moderate distention of the colon with gas and stool. No significant bowel wall thickening is seen. The appendix is unremarkable. No free air is identified. Partially calcified thrombus redemonstrated in the IVC. No retroperitoneal or pelvic lymphadenopathy is seen. No acute osseous findings. CT/CT angio chest PE protocol IMPRESSION: 1. Limited assessment throughout the chest, abdomen, and pelvis due to motion artifact. 2. No central pulmonary embolus identified, though the possibility of emboli beyond the main pulmonary arteries cannot be excluded. 3. Endotracheal tube tip approximately 1 cm beyond the sena in the right mainstem bronchus. Retraction recommended. 4. Patchy opacity in the perihilar region of the right lung; considerations include aspiration and/or atelectasis. 5. Multiple bilateral anterior to anterolateral rib fractures, with displaced fractures on the left. Overlying contusion in the left chest wall. 6. Small amount of perihepatic fluid, of uncertain etiology. 7. Status post right nephrectomy. Previously identified liver lesions are not well demonstrated on this exam. 8. Moderate distention of the colon with gas and stool. 9. Additional chronic findings as noted above. This was discussed with Dr. Fuentes on 10/17/2020 1:10 AM.
--- NOTE | ~2020-10-16 | XR_ITS ---
EXAMINATION: XR CHEST CLINICAL INFORMATION: Right IJ placement COMPARISON: 10/17/2020 CT TECHNIQUE: Frontal view of the chest was obtained. FINDINGS: Endotracheal tube tip lies approximately 3 cm above the sena. Enteric tube courses into the stomach, with side-port in the region of the gastroesophageal junction. Right IJ central line tip lies in the region of the distal SVC. Redemonstrated right perihilar opacity. Mildly increasing opacity noted at the left base. No appreciable pneumothorax or definite pleural effusion. The cardiomediastinal contour is unremarkable. Multiple bilateral rib fractures are better demonstrated on recent CT. XR/XR chest 1V IMPRESSION: 1. Right IJ central line tip in the region of the distal SVC. Enteric tube side-port at the level of the gastroesophageal junction; consider advancement. 2. Mildly increasing left basilar opacity. Persistent right perihilar opacity.
--- NOTE | ~2020-10-16 | CT_ITS ---
EXAMINATION: CT HEAD WITHOUT CONTRAST CLINICAL INFORMATION: Unresponsive COMPARISON: 04/19/2017 TECHNIQUE: Contiguous axial imaging was performed from the skull base to vertex without intravenous administration of contrast. This CT examination was performed using dose optimization techniques as appropriate, variously including the following: *Automated exposure control *Adjustment of mA and/or kV according to patient size (this includes techniques or standardized protocols for targeted exams where dose is matched to indication/reason for exam; i.e. extremities or head) *Use of iterative reconstruction technique DLP: 1080 mGy-cm FINDINGS: Partially limited evaluation due to motion artifact and patient positioning. In comparison to prior examination from 04/19/2017, the bilateral cerebral hemispheric sulci appear somewhat effaced, raising concern for early changes of edema. Nevarez-white differentiation is maintained. No convincing evidence for acute hemorrhage. No midline shift. No extra-axial fluid collections are identified. The ventricles are normal in size. The osseous structures and soft tissues are normal. The mastoid air cells and visualized portions of the paranasal sinuses are well aerated. CT/CT head/brain wo con IMPRESSION: Limited evaluation due to patient motion artifact. Although nevarez-white differentiation is maintained, there appears to be mild effacement of the sulci in the cerebral hemispheres compared to the prior examination, raising concern for early changes of hypoxic ischemic injury in the setting of unresponsiveness. This critical result was discussed with Dr. Fuentes on 10/17/2020 1:10 AM, and it was ascertained that the content and urgency of the report was understood at the time of direct communication.
[2020-10-16 22:25] VITALS: BMI 28.8
[2020-10-16 22:45] LABS: Hematocrit 45.9 % (42-52); Hemoglobin 14.4 g/dl (14.0-18.0); Mean Corpuscular HGB Conc 31.4 g/dl (31.0-36.0); Mean Corpuscular Hemoglobin 29.4 pg (27.0-33.0); Mean Corpuscular Volume 93.7 fL (80-98); Mean Platelet Volume 10.4 fL (9.4-12.4); NRBC Pct Auto 0.1 /100WBC (0.0-0.2); Platelet Count 193 X10*3/uL (160-400); Red Cell Distribution Width 15.4 % (11.0-16.0); White Blood Count 29.9 X10*3/uL (4.8-10.8)
[2020-10-16 22:50] VITALS: PULSE 131; O2SAT 96
[2020-10-16 22:53] LABS: VBG pCO2 48 mmHg; VBG pO2 235 mmHg
[2020-10-16 22:59] LABS: Venous Blood Gas Refer to POC result
[2020-10-16 23:02] LABS: VBG pH 7.11 (7.32-7.43)
[2020-10-16 23:14] LABS: Prothrombin Time 12.1 SEC (10.8-13.0)
[2020-10-16 23:19] LABS: Band Neutrophils Percent 15 % (3-5); Lymphocytes Absolute Manual 8.1 X10*3/uL (0.6-4.8); Lymphocytes Percent Manual 27 % (20-40); Metamyelocytes Absolute 0.3 X10*3/uL; Metamyelocytes Percent 1 %; Monocytes Absolute Manual 0.9 X10*3/uL (0.0-1.2); Monocytes Percent Manual 3 % (2-11); Myelocytes Absolute 0.3 X10*/uL; Myelocytes Percent 1 %; Neutrophils Absolute Manual 20.3 X10*3/uL (2.2-7.9); Neutrophils Percent Manual 53 % (45-73)
[2020-10-16 23:21] LABS: RBC Morphology NOTED
[2020-10-16 23:22] LABS: Microcytosis 1+ (5-14) /OIF; Platelet Estimate NORMAL (NORMAL); Platelet Morphology Comment NORMAL; Troponin-I High Sensitivity 13.8 ng/L (<3.5-35.0)
[2020-10-16 23:24] LABS: B Type Natriuretic Peptide 85 pg/mL (<100)
[2020-10-16 23:24] LABS: Lactic Acid 12.1 mmol/L (0.5-2.0); Magnesium 2.6 mg/dL (1.6-2.6)
[2020-10-16 23:35] LABS: Blood Urea Nitrogen 15 mg/dL (9-16); Creatinine Clr Calc Pharmacy 90.2; Estimated Glomerular Filt Rate 52; Glucose Random 300 mg/dL (60-115)
[2020-10-16 23:44] VITALS: BP 148/108; PULSE 132; RESP 34; O2SAT 100; BMI 28.8
[2020-10-16 23:47] VITALS: BP 148/108; PULSE 131; RESP 40; O2SAT 100
[2020-10-17] VITALS (32 sets, daily range): BP systolic 89–201; BP diastolic 29–127; PULSE 73–140; RESP 26–44; TEMP 34.5–38; O2SAT 34–100; BMI 28.8
[2020-10-17] MEDS: 0.9 % Sodium Chloride 1,000 ML 999 ML IVCONT (00:30)
[2020-10-17] MEDS: Midazolam HCl/NS 50 MG/50 ML PLAST..BAG IVCONT (00:30)
[2020-10-17 00:42] LABS: Reflex Lactate? Lactic Acid Added
--- NOTE | 2020-10-17 00:47 | ED_ITS ---
HPI - CPR General Chief Complaint: Cardiac Arrest/CPR Stated Complaint: cardiac areest Time Seen by Provider: 10/16/20 23:36 Source: EMS Mode of arrival: EMS Limitations: other History of Present Illness HPI narrative: Patient is brought to the emergency room in cardiac arrest. According to EMS, patient was found outdoors, unconscious on the floor. Bystanders estimated that the patient had been unconscious for 1/2 hour. EMS started CPR, intubated the patient, was brought to the emergency room. CPR had been in progress for 24 minutes, multiple epinephrine doses were given, patient had 1 episode of ventricular fibrillation, 1 shock administered, amiodarone 300 mg given, by the time the ambulance pulled into the ambulance [place], patient regained ROSC . Patient is known to have atrial fibrillation, renal cell carcinoma with metastasis. complaint: found unresponsive Related Data Home Medications Medication Instructions Recorded Confirmed albuterol sulfate 1 puff PO Q4H PRN 03/12/20 09/23/20 axitinib [Inlyta] 5 mg PO BID 03/12/20 09/23/20 ondansetron HCl 1 - 2 tab PO Q8H PRN 03/12/20 09/23/20 Previous Rx's Medication Instructions Recorded diltiazem HCl 120 mg 120 mg PO DAILY #90 cap 07/29/20 capsule,extended release 24 hr flecainide 150 mg tablet 150 mg PO Q12H #180 tab 09/23/20 morphine [MS Contin] 60 mg PO Q12H #60 tab 10/09/20 oxycodone 30 mg PO TID PRN #120 tab 10/09/20 Allergies Allergy/AdvReac Type Severity Reaction Status Date / Time No Known Allergies Allergy Verified 09/23/20 14:38 Review of Systems Review of Systems: Yes unobtainable due to endotracheal tube and Unobtainable due to mental condition [facility] Past Medical History Medical History Atrial fibrillation Hypoxemia requiring supplemental oxygen 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 Social History Social History Household Members: Unknown / Unable to assess Housing: Unknown / Unable to assess Unable to assess alcohol history related to: Unable to respond Smoking Status: Current every day smoker Cigarettes Per Day: 10 Use of substances other than those prescribed or required for medical reasons: Unable to respond Advance Directives: No Advance Directives Information Provided: Yes Advance Directives on File: No Recently lost weight without trying: Unsure Nutrition Risks: On aspiration precautions Physical Exam Vital Signs: Vital Signs: Last Vital Signs Temp 100.4 F 10/17/20 03:00 Pulse 117 H 10/17/20 03:00 Resp 29 H 10/17/20 03:00 BP 90/58 L 10/17/20 03:00 Pulse Ox 94 10/17/20 03:00 Body Mass Index 28.8 Appearance: Unresponsive Eyes: Bilateral dilation, sluggish response to light, pupils equal ENT: ETT in place Neck: Normal inspection. Neck supple. No lymph nodes noted. No crepitus CVS: CPR in progress Respiratory: Patient being manually ventilated Abdomen: Soft Skin: Skin warm and dry. Extremities: No lower extremity edema. Neuro: Unresponsive Course Course Course Narrative: In a period time of approximately 90 minutes, patient went into cardiac arrest multiple times, obtained ROSC 5 times. This took approximately 90 minutes between cardiac arrest, multiple episodes of ventricular tachycardia, PEA, sinus rhythm, V fib and ROSC. After the 4th time that ROSC was obtained, patient was in sinus rhythm for approximately 15 m inutes. Patient regained ROSC a fifth time, and has been in sinus rhythm since then. Patient received multiple doses of bicarb, calcium chloride, epinephrine, 2 boluses of amiodarone 300 and 150 mg and started on amiodarone drip. I discussed with the patient's that if the patient goes into cardiac arrest again, CPR would not be recommended. The etiology of patient's cardiac arrest is unclear. It is possible that he had a overdose. Patient's urinalysis was positive for opiates and benzos. Patient did get benzodiazepines by us in the emergency room, did get fentanyl but would not show up in the urine. Initially a PE was suspected given the patient's history of cancer. CTA/PE study was negative, could not 100% rule out PE due to motion artifact, but patient did not have a saddle embolism. I discussed the patient with Dr. Dunaway, patient is being admitted to the intensive care unit MDM - Cardiac Arrest/CPR Lab Data Result diagrams: 10/16/20 22:36 10/17/20 01:41 Labs: Lab Results 10/16/20 10/16/20 10/16/20 Range/Units 22:36 22:36 22:36 WBC 29.9 H (4.8-10.8) X10*3/uL RBC 4.90 (4.60-5.80) X10*6/uL Hgb 14.4 (14.0-18.0) g/dl Hct 45.9 (42-52) % MCV 93.7 (80-98) fL MCH 29.4 (27.0-33.0) pg MCHC 31.4 (31.0-36.0) g/dl RDW 15.4 (11.0-16.0) % Plt Count 193 (160-400) X10*3/uL MPV 10.4 (9.4-12.4) fL Immature Gran % (Auto) Cancelled Neut % (Auto) Cancelled Lymph % (Auto) Cancelled Coleman % (Auto) Cancelled Eos % (Auto) Cancelled Baso % (Auto) Cancelled Lymph # (Auto) Cancelled Coleman # (Auto) Cancelled Eos # (Auto) Cancelled Baso # (Auto) Cancelled Abs Immat Gran (auto) Cancelled Absolute Neuts (auto) Cancelled Absolute Nucleated RBC 0.020 H (0.0-0.012) X10*3/uL Nucleated RBC % (auto) 0.1 (0.0-0.2) /100WBC Neutrophils % (Manual) 53 (45-73) % Band Neutrophils % 15 H (3-5) % Lymphocytes % (Manual) 27 (20-40) % Monocytes % (Manual) 3 (2-11) % Metamyelocytes % 1 % Myelocytes % 1 % Abs Neuts (Manual) 20.3 H (2.2-7.9) X10*3/uL Lymphocytes # (Manual) 8.1 H (0.6-4.8) X10*3/uL Monocytes # (Manual) 0.9 (0.0-1.2) X10*3/uL Metamyelocytes # 0.3 X10*3/uL Myelocytes # 0.3 X10*/uL Platelet Estimate NORMAL (NORMAL) Plt Morphology Comment NORMAL RBC Morphology NOTED Microcytosis 1+ (5-14) /OIF PT 12.1 (10.8-13.0) SEC INR 1.0 (0.9-1.1) VBG pH (7.32-7.43) VBG pCO2 mmHg VBG pO2 mmHg VBG HCO3 VBG O2 Saturation % VBG Base Excess BUN 15 (9-16) mg/dL Creatinine 1.50 H (0.5-1.4) mg/dL Estim Creat Clear Calc 90.2 Estimated GFR 52 Random Glucose 300 H D (60-115) mg/dL Lactic Acid (0.5-2.0) mmol/L Magnesium (1.6-2.6) mg/dL Troponin I High Sens (<3.5-35.0) ng/L B-Natriuretic Peptide (<100) pg/mL 10/16/20 10/16/20 10/16/20 Range/Units 22:36 22:36 22:36 WBC (4.8-10.8) X10*3/uL RBC (4.60-5.80) X10*6/uL Hgb (14.0-18.0) g/dl Hct (42-52) % MCV (80-98) fL MCH (27.0-33.0) pg MCHC (31.0-36.0) g/dl RDW (11.0-16.0) % Plt Count (160-400) X10*3/uL MPV (9.4-12.4) fL Immature Gran % (Auto) Neut % (Auto) Lymph % (Auto) Coleman % (Auto) Eos % (Auto) Baso % (Auto) Lymph # (Auto) Coleman # (Auto) Eos # (Auto) Baso # (Auto) Abs Immat Gran (auto) Absolute Neuts (auto) Absolute Nucleated RBC (0.0-0.012) X10*3/uL Nucleated RBC % (auto) (0.0-0.2) /100WBC Neutrophils % (Manual) (45-73) % Band Neutrophils % (3-5) % Lymphocytes % (Manual) (20-40) % Monocytes % (Manual) (2-11) % Metamyelocytes % % Myelocytes % % Abs Neuts (Manual) (2.2-7.9) X10*3/uL Lymphocytes # (Manual) (0.6-4.8) X10*3/uL Monocytes # (Manual) (0.0-1.2) X10*3/uL Metamyelocytes # X10*3/uL Myelocytes # X10*/uL Platelet Estimate (NORMAL) Plt Morphology Comment RBC Morphology Microcytosis /OIF PT (10.8-13.0) SEC INR (0.9-1.1) VBG pH (7.32-7.43) VBG pCO2 mmHg VBG pO2 mmHg VBG HCO3 VBG O2 Saturation % VBG Base Excess BUN (9-16) mg/dL Creatinine (0.5-1.4) mg/dL Estim Creat Clear Calc Estimated GFR Random Glucose (60-115) mg/dL Lactic Acid 12.1 H* (0.5-2.0) mmol/L Magnesium 2.6 (1.6-2.6) mg/dL Troponin I High Sens 13.8 (<3.5-35.0) ng/L B-Natriuretic Peptide (<100) pg/mL 10/16/20 10/16/20 Range/Units 22:37 22:40 WBC (4.8-10.8) X10*3/uL RBC (4.60-5.80) X10*6/uL Hgb (14.0-18.0) g/dl Hct (42-52) % MCV (80-98) fL MCH (27.0-33.0) pg MCHC (31.0-36.0) g/dl RDW (11.0-16.0) % Plt Count (160-400) X10*3/uL MPV (9.4-12.4) fL Immature Gran % (Auto) Neut % (Auto) Lymph % (Auto) Coleman % (Auto) Eos % (Auto) Baso % (Auto) Lymph # (Auto) Coleman # (Auto) Eos # (Auto) Baso # (Auto) Abs Immat Gran (auto) Absolute Neuts (auto) Absolute Nucleated RBC (0.0-0.012) X10*3/uL Nucleated RBC % (auto) (0.0-0.2) /100WBC Neutrophils % (Manual) (45-73) % Band Neutrophils % (3-5) % Lymphocytes % (Manual) (20-40) % Monocytes % (Manual) (2-11) % Metamyelocytes % % Myelocytes % % Abs Neuts (Manual) (2.2-7.9) X10*3/uL Lymphocytes # (Manual) (0.6-4.8) X10*3/uL Monocytes # (Manual) (0.0-1.2) X10*3/uL Metamyelocytes # X10*3/uL Myelocytes # X10*/uL Platelet Estimate (NORMAL) Plt Morphology Comment RBC Morphology Microcytosis /OIF PT (10.8-13.0) SEC INR (0.9-1.1) VBG pH 7.11 L* (7.32-7.43) VBG pCO2 48 mmHg VBG pO2 235 mmHg VBG HCO3 TNP VBG O2 Saturation 99.0 % VBG Base Excess TNP BUN (9-16) mg/dL Creatinine (0.5-1.4) mg/dL Estim Creat Clear Calc Estimated GFR Random Glucose (60-115) mg/dL Lactic Acid (0.5-2.0) mmol/L Magnesium (1.6-2.6) mg/dL Troponin I High Sens (<3.5-35.0) ng/L B-Natriuretic Peptide 85 (<100) pg/mL Imaging Data CTA PE study: Radiologist's impression: FINDINGS: Limited evaluation throughout the chest, abdomen, and pelvis due to patient motion artifact. Chest: Significantly limited evaluation for pulmonary emboli due to respiratory motion artifact. While no central pulmonary embolus is seen, the possibility of emboli beyond the main pulmonary arteries cannot be excluded. Endotracheal tube tip lies approximately 1 cm beyond the sena in the right mainstem bronchus. Limited evaluation of the lung parenchyma due to motion artifact. There is patchy opacity in the right perihilar region. Dependent atelectasis noted in the left lower lobe. No pleural effusions or and appreciable pneumothorax. No mediastinal lymphadenopathy is seen. Cardiac size is within normal limits; no pericardial effusion. The aorta is unremarkable. No axillary lymphadenopathy is present. There is heterogeneous soft tissue attenuation in the subcutaneous left chest wall suspicious for contusion in the setting of rib fractures. There are anterior right rib and anterior/anterolateral left rib fractures involving at least ribs 2-7 bilaterally, with detail limited due to motion artifact. Some of the left rib fractures are displaced, especially the fourth rib fracture. Abdomen/Pelvis: The liver is homogeneous in attenuation without intrahepatic biliary ductal dilatation. Previously identified liver lesions are not well assessed on this study, likely obscured by motion artifact. Small amount of perihepatic fluid is present. The gallbladder is suboptimally assessed due to motion artifact. The spleen is grossly unremarkable. There is partial fatty atrophy of the pancreas. Adrenal glands appear unremarkable. The right kidney is absent; suboptimal assessment of the nephrectomy bed due to motion artifact. The left kidney appears unremarkable, without hydronephrosis. The urinary bladder is unremarkable. The prostate and seminal vesicles are unremarkable. Limited evaluation of the bowel due to motion artifact. No evidence of obstruction. There is moderate distention of the colon with gas and stool. No significant bowel wall thickening is seen. The appendix is unremarkable. No free air is identified. Partially calcified thrombus redemonstrated in the IVC. No retroperitoneal or pelvic lymphadenopathy is seen. No acute osseous findings. CT/CT abdomen pelvis w con IMPRESSION: 1. Limited assessment throughout the chest, abdomen, and pelvis due to motion artifact. 2. No central pulmonary embolus identified, though the possibility of emboli beyond the main pulmonary arteries cannot be excluded. 3. Endotracheal tube tip approximately 1 cm beyond the sena in the right mainstem bronchus. Retraction recommended. 4. Patchy opacity in the perihilar region of the right lung; considerations include aspiration and/or atelectasis. 5. Multiple bilateral anterior to anterolateral rib fractures, with displaced fractures on the left. Overlying contusion in the left chest wall. 6. Small amount of perihepatic fluid, of uncertain etiology. 7. Status post right nephrectomy. Previously identified liver lesions are not well demonstrated on this exam. 8. Moderate distention of the colon with gas and stool. 9. Additional chronic findings as noted above. Discharge Plan Discharge Clinical Impression: Cardiac arrest Patient Disposition: Admitted As Inpatient Interventions: Admission Worksheet (ED) Last Done: 10/17/20 01:40
[2020-10-17] MEDS: iohexoL 350 MG/ML 100 ML INFUS..BTL 85 ML IV (00:50)
[2020-10-17] MEDS: Amiodarone HCL 900 MG in 0.9 % Sodium Chloride 500 ML 34.53 MG IVCONT (01:00)
[2020-10-17] MEDS: fentaNYL citrate/NS 1,000 MCG/100 ML PLAST..BAG 20 MCG IVCONT ×2 (01:00→17:19)
--- NOTE | 2020-10-17 01:15 | PM.CCHP ---
History of Present Illness Date of Service: 10/17/20 HPI: 40-year-old with underlying history of paroxysmal atrial fibrillation, renal cell carcinoma with metastasis to the lungs x 31/2 years, opioid dependence in the setting of chronic pain syndrome among others, presented to the emergency room after having a cardiac arrest in an outdoor setting, reportedly EMS personnel perform CPR for approximately 24 minutes and the patient returned to spontaneous circulation, arrival to the ER the patient had a pulse however losses poles approximately 4 times and a total of 90 minutes of CPR along will with ACL as drug administration and protocol was performed with successful return of the patient's circulation and a rhythm. Patient is adequately intubated. He is currently sedated. His workup reveals WBC of 29.9, H&H of 14.4 and 45.9 respectively, platelets of 193. INR 1.0, venous pH is 7.11, pCO2 40, PO2 3rd 35, HC03 no detectable. Chemistry is currently pending. Creatinine 1.5. Random glucose 300, lactic acid 12.1, magnesium 2.6, troponin 13.8, BNP 85. Ribcage area with displacement of the ribs on the left side. no pulmonary embolism, there is evidence of patchy opacity in the perihilar region of the right lung. This may represent aspiration versus atelectasis. There is multiple anterior fractures of the bilateral. It was verbally reported to me by Dr. Fuentes that the radiologist had called stated that the patient shows signs of brain edema on the head CT which may be consistent with severe hypoxic brain injury in the setting of cardiac arrest. ROS: As above Past Medical History: As above Past Surgical History: Unknown Family history: Noncontributory Social History: Unknown CODE STATUS: Full code Allergies: No known drug allergies Home Medications: Please see [facility] rec Sepsis PHYSICAL EXAM done at 0115 VS: Blood pressure 127/87, heart rate 124, respirations 34, temperature 99.9?, vent settings are AC 22; 450, 5; 100 ET at 23 at the lip General: Sedated on a ventilator Skin: Left tibial plateau shows an area of puncture and bleeding consistent with IO placement removal. Otherwise clean, dry intact. HEENT: Head is normocephalic, atraumatic, pupils equal fixed and nonreactive. Cardiac: Tachycardic 120 beats per minute, regular, no murmurs, rubs or gallops. Pulmonary: Right anterior chest coarseness, otherwise clear no wheezes, rales, rhonchi. Abdomen: Protuberant, positive bowel sounds in all 4 quadrants. Soft, . Musculoskeletal: Passive range of motion of upper lower extremities at the major joints show no crepitus, no cogwheeling. No edema, no leg asymmetry. Neurologic: As above; sedated, showing signs of decortication Vascular: 2+ pulses upper and lower extremities distally. Less than 2nd capillary refill of the finger and toes bilaterally upper and lower extremities. SIGNIFICANT LABORATORY DATA: As above REVIEW OF IMAGES: Head CT; IMPRESSION: Limited evaluation due to patient motion artifact. Although stover-white differentiation is maintained, there appears to be mild effacement of the sulci in the cerebral hemispheres compared to the prior examination, raising concern for early changes of hypoxic ischemic injury in the setting of unresponsiveness. Chest CT/ Abdominal/ Pelvis CT IMPRESSION: 1. Limited assessment throughout the chest, abdomen, and pelvis due to motion artifact. 2. No central pulmonary embolus identified, though the possibility of emboli beyond the main pulmonary arteries cannot be excluded. 3. Endotracheal tube tip approximately 1 cm beyond the sena in the right mainstem bronchus. Retraction recommended. 4. Patchy opacity in the perihilar region of the right lung; considerations include aspiration and/or atelectasis. 5. Multiple bilateral anterior to anterolateral rib fractures, with displaced fractures on the left. Overlying contusion in the left chest wall. 6. Small amount of perihepatic fluid, of uncertain etiology. 7. Status post right nephrectomy. Previously identified liver lesions are not well demonstrated on this exam. 8. Moderate distention of the colon with gas and stool. 9. Additional chronic findings as noted above. EKG REVIEW: EKG on record shows normal sinus rhythm with rate of 82 beats per minute. No ST elevations, no depressions. No comparison available. Time is 9:40 p.m. according to records. ASSESSMENT AND PLAN: 1. Status post cardiac arrest questionable arrhythmia, PE, massive NV, double it derangement, overdose 2. Sepsis probably due to aspiration pneumonia and reactive markers due to cardiac arrest 3. Lactic acidosis due to the above 4. History of renal cell carcinoma with lung metastasis 5. History of paroxysmal atrial fibrillation 6. Acute kidney injury likely due to hypoperffusion and volume depletion 7. Hyperglycemia rule out DKA 8. Multifactorial metabolic acidosis 9. Multiple rib fractures as a result of CPR on the bilateral anterior chest with displacement on the left 10. Pseudo hypocalcemia 11. Fever likely due to #2 12. Borderline Hypoalbumenemia 13. Anoxic brain Injury post prolongued CPR with evidence of brain edema on CT Admit to ICU, vital signs, I's and O's, continue with ventilation support, repeat labs in the morning, blood cultures, urinalysis, urine culture, urine toxic screen, will need a heart echo, continue with fluids. Will start him on vancomycin and Zosyn, obtain blood cultures prior to these. L and half of IV fluids will be given, I do not know the status of his heart given the previous treatment for his cancer he could have an underlying cardiomyopathy which puts him at risk of developing heart failure therefore 30 milligrams/kilogram will not be givenas a single bolus, but will reassess. Albumin salt x 1. A central line will be placed. Further discussion about goals of care were held with the family members at bedside particularly with the patient's son and who decided that if the patient happens to have a cardiac arrest again, at this point will withdraw care and will not do resuscitation. Insulin sliding scale q.6 hours, continue with amiodarone. I will start him on Decadron for any possible brain swelling and will start cooling protocol TTM with hopes of decreasing oxygen demand to the brain and increase primary organ perffusion. We have pulled back the endotracheal tube approximately 3 cm as this appeared to be past the sena and into the right mainstem, after being pulled back, currently at 23 cm at the lip. The patient continues to shiver and his blood pressure continues to go down, will start him on pressors, will increase propofol to stop that shevering (as this increases body temperature) and start him on pressors to increased blood pressure. Consider switching him propofol to midazolam as continue with propofol may intervene with neurological intervention in the near future. GI PROPHYLAXIS: Ppi IV DVT PROPHYLAXIS: Heparin subQ Repeat focused sepsis exam done at 6:30 a.m. Vital signs: Blood pressure 132/92; heart rate 32; respiration 33 O2 sat while on vent 94% General: Sedated on a ventilator Cardiac: Clear S1 S2 76 beats per minute, regular, no murmurs, rubs or gallops. Pulmonary: Right anterior chest coarseness, otherwise clear no wheezes, rales, rhonchi. Neurologic: As above; sedated, showing signs of decortication Vascular: 2+ pulses upper and lower extremities distally. Less than 2nd capillary refill of the finger and toes bilaterally upper and lower extremities. 0640 am Lab reported a Trop of 3049.6 will start him on Heparin gtt without a load due to risk of bleeding while on TTM. EKG and formal ECHO. ? NSTEMI. Cardiology consult ? depending on future family discussions Critical care time used for critical evaluation of this patient, diagnosis, treatment and coordination of care, review her records and documentation TOTAL CRITICAL CARE TIME 120 MIN . Patient's care was discussed in detail with Dr. Dunaway. He is aware of all the above as well as the plan of care for this patient. [facility] Past Medical History Medical History Atrial fibrillation Hypoxemia requiring supplemental oxygen residential current use of antiarrhythmic drug Metastatic lung carcinoma PAF (paroxysmal atrial fibrillation) Family History Family History Father Atrial fibrillation Mother No problems noted. Surgical History Surgical History History of kidney removal (~2017) Social History Social History Household Members: Unknown / Unable to assess Housing: Unknown / Unable to assess Unable to assess alcohol history related to: Unable to respond Smoking Status: Current every day smoker Cigarettes Per Day: 10 Meds Allergies Allergy/AdvReac Type Severity Reaction Status Date / Time No Known Allergies Allergy Verified 09/23/20 14:38 Active Medications: Current Medications Generic Name Dose Route Start Last Admin Trade Name Freq PRN Reason Stop Dose Admin Midazolam HCl 50 mg in 50 mls @ 2 mls/hr 10/16/20 23:15 Versed IVCONT .Q24H ANDRA 2 MG/HR Propofol 1,000 mg in 100 mls @ 0 mls/hr 10/17/20 01:00 Diprivan IVCONT .Q0M ANDRA Protocol Per Protocol Home Medications Medication Instructions Recorded Confirmed Last Taken Type albuterol sulfate 1 puff PO Q4H PRN 03/12/20 09/23/20 Unknown History axitinib [Inlyta] 5 mg PO BID 10/15/20 04/28/21 Unknown History ondansetron HCl 1 - 2 tab PO Q8H PRN 03/12/20 09/23/20 Unknown History Physical Exam Vital Signs: Vital Signs: Last Vital Signs Pulse 131 H 10/16/20 23:47 Resp 40 H 10/16/20 23:47 BP 148/108 H 10/16/20 23:47 Pulse Ox 100 10/16/20 23:47 Body Mass Index 28.8 Results Labs CBC and Chem 7: 10/17/20 05:54 10/17/20 05:54 Labs: Laboratory Results - last 24 hr 10/16/20 10/16/20 10/16/20 22:36 22:36 22:36 MCV 93.7 MCH 29.4 MCHC 31.4 RDW 15.4 Plt Count 193 MPV 10.4 Immature Gran % (Auto) Cancelled Neut % (Auto) Cancelled Lymph % (Auto) Cancelled [place] % (Auto) Cancelled Eos % (Auto) Cancelled Baso % (Auto) Cancelled Lymph # (Auto) Cancelled [place] # (Auto) Cancelled Eos # (Auto) Cancelled Baso # (Auto) Cancelled Abs Immat Gran (auto) Cancelled Absolute Neuts (auto) Cancelled Absolute Nucleated RBC 0.020 H Nucleated RBC % (auto) 0.1 Neutrophils % (Manual) 53 Band Neutrophils % 15 H Lymphocytes % (Manual) 27 Monocytes % (Manual) 3 Metamyelocytes % 1 Myelocytes % 1 Abs Neuts (Manual) 20.3 H Lymphocytes # (Manual) 8.1 H Monocytes # (Manual) 0.9 Metamyelocytes # 0.3 Myelocytes # 0.3 Platelet Estimate NORMAL Plt Morphology Comment NORMAL RBC Morphology NOTED Microcytosis 1+ (5-14) PT 12.1 INR 1.0 VBG pH VBG pCO2 VBG pO2 VBG HCO3 VBG O2 Saturation VBG Base Excess Estim Creat Clear Calc 90.2 Estimated GFR 52 Random Glucose 300 H D Lactic Acid Magnesium Troponin I High Sens B-Natriuretic Peptide 10/16/20 10/16/20 10/16/20 22:36 22:36 22:36 MCV MCH MCHC RDW Plt Count MPV Immature Gran % (Auto) Neut % (Auto) Lymph % (Auto) [place] % (Auto) Eos % (Auto) Baso % (Auto) Lymph # (Auto) [place] # (Auto) Eos # (Auto) Baso # (Auto) Abs Immat Gran (auto) Absolute Neuts (auto) Absolute Nucleated RBC Nucleated RBC % (auto) Neutrophils % (Manual) Band Neutrophils % Lymphocytes % (Manual) Monocytes % (Manual) Metamyelocytes % Myelocytes % Abs Neuts (Manual) Lymphocytes # (Manual) Monocytes # (Manual) Metamyelocytes # Myelocytes # Platelet Estimate Plt Morphology Comment RBC Morphology Microcytosis PT INR VBG pH VBG pCO2 VBG pO2 VBG HCO3 VBG O2 Saturation VBG Base Excess Estim Creat Clear Calc Estimated GFR Random Glucose Lactic Acid 12.1 H* Magnesium 2.6 Troponin I High Sens 13.8 B-Natriuretic Peptide 10/16/20 10/16/20 22:37 22:40 MCV MCH MCHC RDW Plt Count MPV Immature Gran % (Auto) Neut % (Auto) Lymph % (Auto) [place] % (Auto) Eos % (Auto) Baso % (Auto) Lymph # (Auto) [place] # (Auto) Eos # (Auto) Baso # (Auto) Abs Immat Gran (auto) Absolute Neuts (auto) Absolute Nucleated RBC Nucleated RBC % (auto) Neutrophils % (Manual) Band Neutrophils % Lymphocytes % (Manual) Monocytes % (Manual) Metamyelocytes % Myelocytes % Abs Neuts (Manual) Lymphocytes # (Manual) Monocytes # (Manual) Metamyelocytes # Myelocytes # Platelet Estimate Plt Morphology Comment RBC Morphology Microcytosis PT INR VBG pH 7.11 L* VBG pCO2 48 VBG pO2 235 VBG HCO3 TNP VBG O2 Saturation 99.0 VBG Base Excess TNP Estim Creat Clear Calc Estimated GFR Random Glucose Lactic Acid Magnesium Troponin I High Sens B-Natriuretic Peptide 85
--- NOTE | 2020-10-17 01:24 | PC.NURSE ---
PT ARRIVED AFTER EMS ACHIEVED ROSC UPON ARRIVAL 2155H. DOWN FOR 30 MINS IN FIELD, 24 MINS OF CPR GIVEN BY EMS, WITH BICARB, CALCIUM,, AMIO, 5 EPIS, DOPAMINE GTT, ARRIVED WITH #12 I.O L TIB. CPR RESUMED AT 2201
--- NOTE | 2020-10-17 01:26 | PC.NURSE ---
2201 - 1 EPI GIVEN 2201 - PULSE CHECK #18 R AC PEA, CPR RESUMED 2202 - SHOCK ADMINISTERED 300J 2204 - EPI GIVEN 5 - BICARB, AMIO & CALC GLUC GIVEN, PULSE CHECK - V TACH 2205 - 1 EPI 2207 - PULSE DETECTED, LOST, COMPRESSIONS RESUMED 2207 - BICARB, 1 EPI 2209 - FEM PULSE DETECTED V TACH 2210 - SHOCK GIVEN, 1 EPI 2211 - IRREG PULSE DETECTED, LOST, CPR RESUMED 2211 - 1 EPI 2213 - PULSE CHECK, V TACH, CPR RESUMED 2213 - 1 EPI 2215 - NO PULSE DETECTED 2217 - CALCIUM GLUC ADMINISTERED, PULSE DETECTED, V.O. FOR AMIO GTT 166/97 117HR 2234 - CPR RESUMED 2234 - SHOCK GIVEN, AMIO GTT RUNNING 2235 - 1 EPI, VTACH, NO PULSE 8 - 1 EPI 2240 - FEM PULSE DETECTED, LOST, 1 EPI 2241 - SHOCK ADMINISTERED 2242 - 1 EPI 2243 - THREADY PULSE DETECTED 2250 - 153/114 122HR 2253 - BICARB GIVEN 2255 - 200/140 127HR 37RR, ULTRASOUND AT BEDSIDE FENTANYL, AMIO, VERSED GTTS RUNNING DURING CT SCAN. RECEIVED V.O FOR ADDITIONAL IVP FENTANYL & PROPOFOL GTT FOR SEDATION, STARTED PER PROTOCOL, GIVEN 10MG PROPOFOL BOLUS PRIOR TO TRANSPORT TO ICU.
[2020-10-17 01:54] LABS: ABG Base Excess -7.4 mmol/L; ABG HCO3 18 mmol/L (22-26); ABG pCO2 39 mmHg (32-45); ABG pCO2 TC 38 mmHg (32-45); ABG pH 7.28 (7.35-7.45); ABG pH TC 7.28 (7.35-7.45); ABG pO2 265 mmHg (83-108)
[2020-10-17 01:54] LABS: ABG Refer to POC result
[2020-10-17 01:55] LABS: Basophils Absolute Auto 0.1 X10*3/uL (0.0-0.2); Basophils Percent Auto 0.3 % (0-2); Eosinophils Absolute Auto 0.2 X10*3/uL (0.0-0.4); Eosinophils Percent Auto 0.5 % (0-4); Hematocrit 45.3 % (42-52); Hemoglobin 14.6 g/dl (14.0-18.0); Imm Gran Abs Auto 1.07 X10*3/uL (0.00-0.03); Imm Gran Pct Auto 2.4 % (0.0-0.4); Lymphocytes Absolute Auto 2.5 X10*3/uL (1.2-4.9); Lymphocytes Percent Auto 5.6 % (20-40); MANUAL DIFF FLAG SCAN; Mean Corpuscular HGB Conc 32.2 g/dl (31.0-36.0); Mean Corpuscular Hemoglobin 29.7 pg (27.0-33.0); Mean Corpuscular Volume 92.1 fL (80-98); Mean Platelet Volume 9.9 fL (9.4-12.4); Monocytes Absolute Auto 2.3 X10*3/uL (0.1-1.2); Monocytes Percent Auto 5.1 % (2-11); Neutrophils Absolute Auto 38.1 X10*3/uL (2.0-8.3); Neutrophils Percent Auto 86.1 % (45-73); Platelet Count 255 X10*3/uL (160-400); Red Blood Count 4.92 X10*6/uL (4.60-5.80); Red Cell Distribution Width 15.6 % (11.0-16.0); SCAN SMEAR FLAG 1
--- NOTE | 2020-10-17 01:57 | PC.NURSE ---
TOTAL BICARB IVP GIVEN IN ED : 3 TOTAL CALCIUM IVP GIVEN IN ED: 2 TOTAL EPI GIVEN IN ED: 9 AMPS TOTAL AMIO GIVEN IN ED: 2 AMPS FENTANYL 25MCG GIVEN IVP, WITNESSED ON WASTE BY ALBERTO EDGE
[2020-10-17] MEDS: propofoL 1,000 MG/100 ML VIAL 26.4 MG IVCONT ×2 (02:00→05:35)
[2020-10-17 02:08] LABS: White Blood Count 44.3 X10*3/uL (4.8-10.8)
[2020-10-17 02:18] LABS: Glucose Urine UA NEG (NEG); Leukocyte Esterase Urine NEG (NEG); Nitrite Urine NEG (NEG); Specific Gravity - Urine 1.025 (1.005-1.025); Urine Blood 3+ (NEG); Urine Ketones NEG (NEG); Urine Protein 3+ MG/DL (NEG-TRACE); ~Lactic Acid-LAB USE ONLY 5.4 mmol/L (0.5-2.0)
[2020-10-17 02:21] LABS: Alanine Aminotransferase 644 U/L (0-40); Albumin Level 3.4 g/dL (3.5-5.0); Alkaline Phosphatase 124 U/L (39-117); Anion Gap 22 (12-20); Aspartate Amino Transferase 1075 U/L (5-37); Bilirubin Total 0.8 mg/dL (0.0-1.0); Blood Urea Nitrogen 22 mg/dL (9-16); Calcium 10.8 mg/dL (8.4-10.2); Carbon Dioxide 18 mmol/L (22-29); Chloride 107 mmol/L (96-108); Estimated Glomerular Filt Rate 48; Glucose Random 223 mg/dL (60-115); Potassium 3.8 mmol/L (3.3-5.1); Sodium 143 mmol/L (135-145); Total Protein 5.6 g/dL (6.5-8.0)
[2020-10-17 02:22] LABS: Appearance Urine CLOUDY; Color Urine YELLOW
[2020-10-17 02:41] LABS: Bacteria Urine 2+ /LPF; Mucus Urine 2+ /LPF; Squamous Epithelial Cell Urine 1+ /LPF
[2020-10-17 02:46] LABS: Amphetamine Screen Urine Not Detected (Not Detect); Barbiturates, Urine Not Detected (Not Detect); Benzodiazepines Screen Urine POSITIVE (Not Detect); Cannabinoid Screen Urine POSITIVE (Not Detect); Cocaine Screen Urine Not Detected (Not Detect); Opiate Screen Urine POSITIVE (Not Detect); Phencyclidine Screen Urine Not Detected (Not Detect)
[2020-10-17] MEDS: Lactated Ringers 1,000 ML 999 ML IV (03:27)
--- NOTE | 2020-10-17 03:42 | W.PM.CCHP ---
Procedures Date of Service Date of Service: 10/17/20
[2020-10-17 03:45] LABS: Reflex Lactate? 2 Y
[2020-10-17] MEDS: Lactated Ringers 500 ML 999 ML IV (04:03)
[2020-10-17] MEDS: Acetaminophen Oral Liquid 650 MG/20.3 ML SOLUTION OG-TUBE (04:22)
[2020-10-17] MEDS: Sodium Bicarbonate 8.4% 50 MEQ/50 ML VIAL IVPUSH (04:22)
[2020-10-17] MEDS: Heparin Sodium,Porcine 5,000 UNIT/ML VIAL 5000 UNIT SUBCUT (04:22)
[2020-10-17] MEDS: fentaNYL citrate/NS 1,000 MCG/100 ML PLAST..BAG 15 MCG IVCONT (04:27)
[2020-10-17] MEDS: Piperacillin Sodium/Tazobactam 4.5 GM in 0.9 % Sodium Chloride 100 ML IV (04:31)
[2020-10-17 04:34] LABS: SLIDE REVIEW VERIFIED
[2020-10-17 04:35] LABS: Lactic Acid 6.6 mmol/L (0.5-2.0)
[2020-10-17] MEDS: Albumin Human 25 % 50 ML 100 ML IV (04:45)
[2020-10-17] MEDS: Lactated Ringers 1,500 ML 999 ML IV (05:14)
[2020-10-17 06:08] LABS: Reflex Lactate? Lactic Acid Added
[2020-10-17 06:10] LABS: Basophils Absolute Auto 0.1 X10*3/uL (0.0-0.2); Basophils Percent Auto 0.2 % (0-2); Eosinophils Absolute Auto 0.1 X10*3/uL (0.0-0.4); Eosinophils Percent Auto 0.2 % (0-4); Hematocrit 36.2 % (42-52); Hemoglobin 11.6 g/dl (14.0-18.0); Imm Gran Abs Auto 0.43 X10*3/uL (0.00-0.03); Imm Gran Pct Auto 1.2 % (0.0-0.4); Lymphocytes Absolute Auto 1.2 X10*3/uL (1.2-4.9); Lymphocytes Percent Auto 3.3 % (20-40); MANUAL DIFF FLAG SCAN; Mean Corpuscular Hemoglobin 29.5 pg (27.0-33.0); Mean Corpuscular Volume 92.1 fL (80-98); Mean Platelet Volume 10.2 fL (9.4-12.4); Monocytes Absolute Auto 1.6 X10*3/uL (0.1-1.2); Monocytes Percent Auto 4.4 % (2-11); Neutrophils Percent Auto 90.7 % (45-73); Platelet Count 214 X10*3/uL (160-400); Red Blood Count 3.93 X10*6/uL (4.60-5.80); Red Cell Distribution Width 15.7 % (11.0-16.0); SCAN SMEAR FLAG 1
[2020-10-17 06:15] LABS: Glucose, Whole Blood 185 mg/dL (60-115)
[2020-10-17 06:16] LABS: VBG Base Excess -5.1 mmol/L; VBG HCO3 21 mmol/L (22-26); VBG pCO2 46 mmHg; VBG pH 7.27 (7.32-7.43); VBG pO2 70 mmHg
[2020-10-17 06:17] LABS: Venous Blood Gas Refer to POC result
[2020-10-17 06:18] LABS: White Blood Count 36.4 X10*3/uL (4.8-10.8)
[2020-10-17 06:26] LABS: COVID-19 Test Negative (Negative)
[2020-10-17 06:33] LABS: Anion Gap 28 (12-20); Carbon Dioxide 12 mmol/L (22-29); Chloride 104 mmol/L (96-108); Potassium 4.4 mmol/L (3.3-5.1); Sodium 140 mmol/L (135-145)
[2020-10-17 06:38] LABS: Lactic Acid 4.9 mmol/L (0.5-2.0)
[2020-10-17 06:42] LABS: Alanine Aminotransferase 445 U/L (0-40); Alkaline Phosphatase 69 U/L (39-117); Anion Gap 15 (12-20); Aspartate Amino Transferase 667 U/L (5-37); Blood Urea Nitrogen 26 mg/dL (9-16); C Reactive Protein 2.16 mg/dL (< or = 0.50); Calcium 9.4 mg/dL (8.4-10.2); Carbon Dioxide 24 mmol/L (22-29); Chloride 107 mmol/L (96-108); Creatinine Clr Calc Pharmacy 83.5; Estimated Glomerular Filt Rate 47; Glucose Random 206 mg/dL (60-115); Phosphorus 2.9 mg/dL (2.7-4.5); Potassium 3.9 mmol/L (3.3-5.1); Sodium 142 mmol/L (135-145); Total Protein 4.6 g/dL (6.5-8.0)
[2020-10-17] MEDS: Pantoprazole Sodium 40 MG/10 ML VIAL IVPUSH (06:43)
--- NOTE | 2020-10-17 07:03 | PC.NURSE ---
pt to floor from ED post code. TMax- 100.6, tylenol and cooling blanket applied. VSS with amiodarone gtt and levophed gtt titrated per emar. Amiodarone put to 0.4mg/min per PA at bedside for HR of 76. Pt sedated on Propofol and fentanly, versed was turned off. No cough/gag, pupile unreactive, posturing, and making non purposeful movements. Vent settings changed to ACVC rate of 22, TV 450, peep 12, FIO2- 70%. Scant thick blood tinged inline secretions noted. Lylse inserted, U/O 20-25, 3L LR given. U/o 100/hr/ SR with 1st degree on tele, HR from 130s to 70s. TLC place in RIJ by PA. pt bathed, repo q2hr, airtap bed, bruising noted on legs.
[2020-10-17] MEDS: Heparin Sodium,Porcine/1/2NS 25,000 UNIT/250 ML IV.SOLN 15.4 UNIT IVCONT (07:08)
[2020-10-17 08:01] LABS: Reflex Lactate? Lactic Acid Added
--- NOTE | 2020-10-17 08:26 | PC.NURSE ---
Received Pt in walking rounds. Pt remains vent dependent, unresponsive to painful stimuli. Amio, Fentanyl, anf Propofol gtts infusing per protocol. Cooling therapy ongoing. Per order Heparin protocol initiated. Lyles to gravity with clear yellow urine draining. Dr Dunaway called and D/C'd Propofol, fentanyl, versed gtt (currently on hold)as well as heparin protocol. Order placed also for DNR. Coming in to meet with family. Currently pt does not withdraw from deep painful stimuli. Over breathing vent. Organ donation called-referral number [id number] per Lexie. Assessment ongoing
[2020-10-17 09:25] LABS: ~Lactic Acid-LAB USE ONLY 3.7 mmol/L (0.5-2.0)
--- NOTE | 2020-10-17 09:42 | PM.CCPN ---
Subjective Subjective Date of Service: 10/17/20 Interval History: Mr. Barry was admitted to the ICU early this morning after resuscitation from cardiac arrest. The patient is a 40 yo M with PMHx of renal cell ca for 3? years, metastatic to lung. Also h/o PAfib, and opiate use for chronic pain syndrome. The patient lives with his and children. HISTORY OF PRESENT ILLNESS: According to the patient's , he was in his usual state of health yesterday. He mowed the lawn with the riding lawnmower, and then went out on his motorized bicycle later in the evening. He usually goes out for a two hour ride, but he didn?t come home last night and she didn?t know what happened to him until she got a call from the hospital. According to EMS, the patient was found outdoors unconscious on the ground. Bystanders estimated that the patient had been unconscious for 1/2 hour. EMS was called and started CPR on arrival at the scene. The patient was intubated in the field and brought to the emergency room. According to the dog obedience instructor, CPR duration was 24 minutes, multiple epinephrine doses were given, the patient had one episode of ventricular fibrillation, one shock was administered, and amiodarone 300 mg was given. On arrival to the ED, the patient had ROSC with a pulse. Over the course of the first approx. 90 minutes in the ED, the patient went into cardiac arrest another four times, with multiple episodes of ventricular tachycardia, ventricular fibrillation, PEA, and sinus rhythm. The patient was given multiple doses of bicarbonate, calcium, epinephrine, and amiodarone, and then started on an amiodarone drip. Total epinephrine dosage was 14 mg. The patient regained ROSC a fifth time, and remained in sinus rhythm. Dr. Fuentes did speak with the patient's and recommended no further cardiopulmonary resuscitation showed another cardiac arrest ensue. The etiology of patient's cardiac arrest remains undetermined, fozia given that yesterday he was seemingly in his USOH. The patient's urinalysis was positive for opiates and benzos. A CTPA was done in the ED and was negative for PE. By my reading, the PA size and all cardiac chambers were normal sized. The patient was admitted to ICU early this morning. He was on an amiodarone drip. Levophed up to 0.1ug was added. FiO2 was 70%. Neuro exam suggested decorticate posturing. Therapeutic hypothermia was instituted. This morning, on low-dose Levophed blood pressure was 129/84. Heart rate was 70s, sinus rhythm, on the amiodarone infusion. Sat was 97% on 70% FiO2. At a set ventilator rate of 18, the RR was up to 32. Temperature was 94.3 degrees. Neuro exam reveals myoclonic jerking. There is no response to any kind of stimulation. He is showing eye opening but that is part of his myoclonic jerking. Pupils are equal round 3-4 mm. No corneals, no doll's eyes, no gag reflex. No Babinski's. Shortly after my initial exam, the BP yelena rapidly to the 170?s. HR was 80?s. (? Jordi reflex.) IMAGING: A head CT was done this morning at 00:26. The CT scan, in my opinion, was significantly underread. The radiologist's interpretation is that ? the bilateral cerebral hemispheric sulci appear somewhat effaced? is, and ?Nevarez-white differentiation is maintained.? In my opinion, the sulci are very significantly effaced, and nevarez-white differentiation is not maintained (e.g. see series number 3, images 13-26). Furthermore, the lateral and third ventricles are partially effaced, and the basal cistern is probably showing partial effacement, or at least the beginning of it. LABORATORY DATA: All labs were reviewed in depth. IMPRESSION: Mr. Barry sustained a cardiac arrest, with significant down time before CPR was even begun. Subsequent to that, he had almost 2 hours of on-and-off CPR. In contrast to the radiologist?s interpretation, the head CT at 00:26 already shows severe cerebral edema, indicative of lethal ischemic injury. It is certain that the patient will progress to brain , likely within the next 24 hrs. There are no therapies that we can offer that will change that eventuality. If the current hemodynamics are truly a Jordi response, it may be fairly soon. I?ve discussed all the above with the patient?s family at length, and have written for comfort measures only, based on the patient?s clinical status. I?ve also discussed the patient?s situation with Dr. Meléndez. Critical care time (including chart rev in depth): 2+ hrs Critical Care Time (minutes): 120 Physical Exam Vital Signs: Vital Signs: Last Vital Signs Temp 94.8 F L 10/17/20 09:00 Pulse 82 10/17/20 09:00 Resp 35 H 10/17/20 09:00 BP 146/110 H 10/17/20 09:00 Pulse Ox 34 L 10/17/20 09:00 Body Mass Index 28.8 Objective Data Labs CBC & Chem 7: 10/17/20 05:54 10/17/20 05:54 Labs: Laboratory Results - last 24 hr 10/16/20 10/16/20 10/16/20 22:36 22:36 22:36 WBC 29.9 H RBC 4.90 Hgb 14.4 Hct 45.9 MCV 93.7 MCH 29.4 MCHC 31.4 RDW 15.4 Plt Count 193 MPV 10.4 Immature Gran % (Auto) Cancelled Neut % (Auto) Cancelled Lymph % (Auto) Cancelled Hendricks % (Auto) Cancelled Eos % (Auto) Cancelled Baso % (Auto) Cancelled Lymph # (Auto) Cancelled Hendricks # (Auto) Cancelled Eos # (Auto) Cancelled Baso # (Auto) Cancelled Abs Immat Gran (auto) Cancelled Absolute Neuts (auto) Cancelled Absolute Nucleated RBC 0.020 H Nucleated RBC % (auto) 0.1 Neutrophils % (Manual) 53 Band Neutrophils % 15 H Lymphocytes % (Manual) 27 Monocytes % (Manual) 3 Metamyelocytes % 1 Myelocytes % 1 Abs Neuts (Manual) 20.3 H Lymphocytes # (Manual) 8.1 H Monocytes # (Manual) 0.9 Metamyelocytes # 0.3 Myelocytes # 0.3 Platelet Estimate NORMAL Plt Morphology Comment NORMAL RBC Morphology NOTED Microcytosis 1+ (5-14) Smear Tech's Comments PT 12.1 INR 1.0 O2 Saturation ABG pH at Pt Temp ABG pH (Temp Correct) ABG pCO2 at Pt Temp ABG pCO2 (Temp Corrct ABG pO2 at Pt Temp ABG HCO3 ABG Base Excess (Actual) VBG pH VBG pCO2 VBG pO2 VBG HCO3 VBG O2 Saturation VBG Base Excess Sodium 140 Potassium 4.4 Chloride 104 Carbon Dioxide 12 L Anion Gap 28 H BUN 15 Creatinine 1.50 H Estim Creat Clear Calc 90.2 Estimated GFR 52 POC Glucose Random Glucose 300 H D Lactic Acid Lactic Acid Fup @ 2Hr Calcium 14.0 H* D Phosphorus Magnesium Total Bilirubin AST ALT Alkaline Phosphatase Total Creatine Kinase Troponin I High Sens C-Reactive Protein B-Natriuretic Peptide Total Protein Albumin Urine Color Urine Appearance Urine pH Ur Specific [place] Urine Protein Urine Glucose (UA) Urine Ketones Urine Blood Urine Nitrite Ur Leukocyte Esterase Urine RBC Urine WBC Ur Squamous Epith Cells Urine Bacteria Hyaline Casts Granular Casts Urine Mucus Urine Opiates Screen Ur Barbiturates Screen Ur Phencyclidine Scrn Ur Amphetamines Screen U Benzodiazepines Scrn Urine Cocaine Screen U Marijuana (THC) Screen COVID-19 ([facility]) COVID-19 Clin Com 10/16/20 10/16/20 10/16/20 22:36 22:36 22:36 WBC RBC Hgb Hct MCV MCH MCHC RDW Plt Count MPV Immature Gran % (Auto) Neut % (Auto) Lymph % (Auto) Hendricks % (Auto) Eos % (Auto) Baso % (Auto) Lymph # (Auto) Hendricks # (Auto) Eos # (Auto) Baso # (Auto) Abs Immat Gran (auto) Absolute Neuts (auto) Absolute Nucleated RBC Nucleated RBC % (auto) Neutrophils % (Manual) Band Neutrophils % Lymphocytes % (Manual) Monocytes % (Manual) Metamyelocytes % Myelocytes % Abs Neuts (Manual) Lymphocytes # (Manual) Monocytes # (Manual) Metamyelocytes # Myelocytes # Platelet Estimate Plt Morphology Comment RBC Morphology Microcytosis Smear Tech's Comments PT INR O2 Saturation ABG pH at Pt Temp ABG pH (Temp Correct) ABG pCO2 at Pt Temp ABG pCO2 (Temp Corrct ABG pO2 at Pt Temp ABG HCO3 ABG Base Excess (Actual) VBG pH VBG pCO2 VBG pO2 VBG HCO3 VBG O2 Saturation VBG Base Excess Sodium Potassium Chloride Carbon Dioxide Anion Gap BUN Creatinine Estim Creat Clear Calc Estimated GFR POC Glucose Random Glucose Lactic Acid 12.1 H* Lactic Acid Fup @ 2Hr Calcium Phosphorus Magnesium 2.6 Total Bilirubin AST ALT Alkaline Phosphatase Total Creatine Kinase Troponin I High Sens 13.8 C-Reactive Protein B-Natriuretic Peptide Total Protein Albumin Urine Color Urine Appearance Urine pH Ur Specific [place] Urine Protein Urine Glucose (UA) Urine Ketones Urine Blood Urine Nitrite Ur Leukocyte Esterase Urine RBC Urine WBC Ur Squamous Epith Cells Urine Bacteria Hyaline Casts Granular Casts Urine Mucus Urine Opiates Screen Ur Barbiturates Screen Ur Phencyclidine Scrn Ur Amphetamines Screen U Benzodiazepines Scrn Urine Cocaine Screen U Marijuana (THC) Screen COVID-19 ([facility]) COVID-19 Truly 10/16/20 10/16/20 10/17/20 22:37 22:40 01:41 WBC RBC Hgb Hct MCV MCH MCHC RDW Plt Count MPV Immature Gran % (Auto) Neut % (Auto) Lymph % (Auto) Hendricks % (Auto) Eos % (Auto) Baso % (Auto) Lymph # (Auto) Hendricks # (Auto) Eos # (Auto) Baso # (Auto) Abs Immat Gran (auto) Absolute Neuts (auto) Absolute Nucleated RBC Nucleated RBC % (auto) Neutrophils % (Manual) Band Neutrophils % Lymphocytes % (Manual) Monocytes % (Manual) Metamyelocytes % Myelocytes % Abs Neuts (Manual) Lymphocytes # (Manual) Monocytes # (Manual) Metamyelocytes # Myelocytes # Platelet Estimate Plt Morphology Comment RBC Morphology Microcytosis Smear Tech's Comments PT INR O2 Saturation ABG pH at Pt Temp ABG pH (Temp Correct) ABG pCO2 at Pt Temp ABG pCO2 (Temp Corrct ABG pO2 at Pt Temp ABG HCO3 ABG Base Excess (Actual) VBG pH 7.11 L* VBG pCO2 48 VBG pO2 235 VBG HCO3 TNP VBG O2 Saturation 99.0 VBG Base Excess TNP Sodium Potassium Chloride Carbon Dioxide Anion Gap BUN Creatinine Estim Creat Clear Calc Estimated GFR POC Glucose Random Glucose Lactic Acid Lactic Acid Fup @ 2Hr 5.4 H* Calcium Phosphorus Magnesium Total Bilirubin AST ALT Alkaline Phosphatase Total Creatine Kinase Troponin I High Sens C-Reactive Protein B-Natriuretic Peptide 85 Total Protein Albumin Urine Color Urine Appearance Urine pH Ur Specific [place] Urine Protein Urine Glucose (UA) Urine Ketones Urine Blood Urine Nitrite Ur Leukocyte Esterase Urine RBC Urine WBC Ur Squamous Epith Cells Urine Bacteria Hyaline Casts Granular Casts Urine Mucus Urine Opiates Screen Ur Barbiturates Screen Ur Phencyclidine Scrn Ur Amphetamines Screen U Benzodiazepines Scrn Urine Cocaine Screen U Marijuana (THC) Screen COVID-19 ([facility]IN[facility]) COVID-19 Truly 10/17/20 10/17/20 10/17/20 01:41 01:41 01:41 WBC 44.3 H* RBC 4.92 Hgb 14.6 Hct 45.3 MCV 92.1 MCH 29.7 MCHC 32.2 RDW 15.6 Plt Count 255 D MPV 9.9 Immature Gran % (Auto) 2.4 H Neut % (Auto) 86.1 H Lymph % (Auto) 5.6 L Hendricks % (Auto) 5.1 Eos % (Auto) 0.5 Baso % (Auto) 0.3 Lymph # (Auto) 2.5 Hendricks # (Auto) 2.3 H Eos # (Auto) 0.2 Baso # (Auto) 0.1 Abs Immat Gran (auto) 1.07 H Absolute Neuts (auto) 38.1 H Absolute Nucleated RBC 0.000 Nucleated RBC % (auto) 0.0 Neutrophils % (Manual) Band Neutrophils % Lymphocytes % (Manual) Monocytes % (Manual) Metamyelocytes % Myelocytes % Abs Neuts (Manual) Lymphocytes # (Manual) Monocytes # (Manual) Metamyelocytes # Myelocytes # Platelet Estimate Plt Morphology Comment RBC Morphology Microcytosis Smear Tech's Comments VERIFIED PT INR O2 Saturation ABG pH at Pt Temp ABG pH (Temp Correct) ABG pCO2 at Pt Temp ABG pCO2 (Temp Corrct ABG pO2 at Pt Temp ABG HCO3 ABG Base Excess (Actual) VBG pH VBG pCO2 VBG pO2 VBG HCO3 VBG O2 Saturation VBG Base Excess Sodium 143 Potassium 3.8 Chloride 107 Carbon Dioxide 18 L Anion Gap 22 H BUN 22 H Creatinine 1.61 H Estim Creat Clear Calc 84.0 Estimated GFR 48 POC Glucose Random Glucose 223 H Lactic Acid Lactic Acid Fup @ 2Hr Calcium 10.8 H D Phosphorus 7.0 H Magnesium Total Bilirubin 0.8 AST 1075 H ALT 644 H Alkaline Phosphatase 124 H D Total Creatine Kinase Troponin I High Sens C-Reactive Protein B-Natriuretic Peptide Total Protein 5.6 L D Albumin 3.4 L D Urine Color YELLOW Urine Appearance CLOUDY Urine pH 6.0 Ur Specific [place] 1.025 Urine Protein 3+ H Urine Glucose (UA) NEG Urine Ketones NEG Urine Blood 3+ H Urine Nitrite NEG Ur Leukocyte Esterase NEG Urine RBC 15-29 H Urine WBC 10-14 H Ur Squamous Epith Cells 1+ Urine Bacteria 2+ Hyaline Casts 1-4 Granular Casts 1-4 Urine Mucus 2+ Urine Opiates Screen Ur Barbiturates Screen Ur Phencyclidine Scrn Ur Amphetamines Screen U Benzodiazepines Scrn Urine Cocaine Screen U Marijuana (THC) Screen COVID-19 ([facility]IN[facility]) COVID-19 Truly 10/17/20 10/17/20 10/17/20 01:41 01:45 03:49 WBC RBC Hgb Hct MCV MCH MCHC RDW Plt Count MPV Immature Gran % (Auto) Neut % (Auto) Lymph % (Auto) Hendricks % (Auto) Eos % (Auto) Baso % (Auto) Lymph # (Auto) Hendricks # (Auto) Eos # (Auto) Baso # (Auto) Abs Immat Gran (auto) Absolute Neuts (auto) Absolute Nucleated RBC Nucleated RBC % (auto) Neutrophils % (Manual) Band Neutrophils % Lymphocytes % (Manual) Monocytes % (Manual) Metamyelocytes % Myelocytes % Abs Neuts (Manual) Lymphocytes # (Manual) Monocytes # (Manual) Metamyelocytes # Myelocytes # Platelet Estimate Plt Morphology Comment RBC Morphology Microcytosis Smear Tech's Comments PT INR O2 Saturation 99.0 ABG pH at Pt Temp 7.28 L ABG pH (Temp Correct) 7.28 L ABG pCO2 at Pt Temp 39 ABG pCO2 (Temp Corrct 38 ABG pO2 at Pt Temp 265 H ABG HCO3 18 L ABG Base Excess (Actual) -7.4 VBG pH VBG pCO2 VBG pO2 VBG HCO3 VBG O2 Saturation VBG Base Excess Sodium Potassium Chloride Carbon Dioxide Anion Gap BUN Creatinine Estim Creat Clear Calc Estimated GFR POC Glucose Random Glucose Lactic Acid 6.6 H* Lactic Acid Fup @ 2Hr Calcium Phosphorus Magnesium Total Bilirubin AST ALT Alkaline Phosphatase Total Creatine Kinase Troponin I High Sens C-Reactive Protein B-Natriuretic Peptide Total Protein Albumin Urine Color Urine Appearance Urine pH Ur Specific [place] Urine Protein Urine Glucose (UA) Urine Ketones Urine Blood Urine Nitrite Ur Leukocyte Esterase Urine RBC Urine WBC Ur Squamous Epith Cells Urine Bacteria Hyaline Casts Granular Casts Urine Mucus Urine Opiates Screen POSITIVE H Ur Barbiturates Screen Not Detected Ur Phencyclidine Scrn Not Detected Ur Amphetamines Screen Not Detected U Benzodiazepines Scrn POSITIVE H Urine Cocaine Screen Not Detected U Marijuana (THC) Screen POSITIVE H COVID-19 ([facility]IN[facility]) COVID-19 Truly 10/17/20 10/17/20 10/17/20 05:45 05:54 05:54 WBC 36.4 H* RBC 3.93 L D Hgb 11.6 L D Hct 36.2 L D MCV 92.1 MCH 29.5 MCHC 32.0 RDW 15.7 Plt Count 214 MPV 10.2 Immature Gran % (Auto) 1.2 H Neut % (Auto) 90.7 H Lymph % (Auto) 3.3 L Hendricks % (Auto) 4.4 Eos % (Auto) 0.2 Baso % (Auto) 0.2 Lymph # (Auto) 1.2 Hendricks # (Auto) 1.6 H Eos # (Auto) 0.1 Baso # (Auto) 0.1 Abs Immat Gran (auto) 0.43 H Absolute Neuts (auto) 33.0 H Absolute Nucleated RBC 0.000 Nucleated RBC % (auto) 0.0 Neutrophils % (Manual) Band Neutrophils % Lymphocytes % (Manual) Monocytes % (Manual) Metamyelocytes % Myelocytes % Abs Neuts (Manual) Lymphocytes # (Manual) Monocytes # (Manual) Metamyelocytes # Myelocytes # Platelet Estimate Plt Morphology Comment RBC Morphology Microcytosis Smear Tech's Comments PT INR O2 Saturation ABG pH at Pt Temp ABG pH (Temp Correct) ABG pCO2 at Pt Temp ABG pCO2 (Temp Corrct ABG pO2 at Pt Temp ABG HCO3 ABG Base Excess (Actual) VBG pH VBG pCO2 VBG pO2 VBG HCO3 VBG O2 Saturation VBG Base Excess Sodium 142 Potassium 3.9 Chloride 107 Carbon Dioxide 24 Anion Gap 15 BUN 26 H Creatinine 1.62 H Estim Creat Clear Calc 83.5 Estimated GFR 47 POC Glucose Random Glucose 206 H Lactic Acid Lactic Acid Fup @ 2Hr Calcium 9.4 D Phosphorus 2.9 Magnesium Total Bilirubin 1.0 AST 667 H ALT 445 H Alkaline Phosphatase 69 D Total Creatine Kinase Troponin I High Sens C-Reactive Protein 2.16 H B-Natriuretic Peptide Total Protein 4.6 L Albumin 3.0 L Urine Color Urine Appearance Urine pH Ur Specific [place] Urine Protein Urine Glucose (UA) Urine Ketones Urine Blood Urine Nitrite Ur Leukocyte Esterase Urine RBC Urine WBC Ur Squamous Epith Cells Urine Bacteria Hyaline Casts Granular Casts Urine Mucus Urine Opiates Screen Ur Barbiturates Screen Ur Phencyclidine Scrn Ur Amphetamines Screen U Benzodiazepines Scrn Urine Cocaine Screen U Marijuana (THC) Screen COVID-19 ([facility]) Negative COVID-19 Clin Com See Note 10/17/20 10/17/20 10/17/20 05:54 05:54 05:54 WBC RBC Hgb Hct MCV MCH MCHC RDW Plt Count MPV Immature Gran % (Auto) Neut % (Auto) Lymph % (Auto) Hendricks % (Auto) Eos % (Auto) Baso % (Auto) Lymph # (Auto) Hendricks # (Auto) Eos # (Auto) Baso # (Auto) Abs Immat Gran (auto) Absolute Neuts (auto) Absolute Nucleated RBC Nucleated RBC % (auto) Neutrophils % (Manual) Band Neutrophils % Lymphocytes % (Manual) Monocytes % (Manual) Metamyelocytes % Myelocytes % Abs Neuts (Manual) Lymphocytes # (Manual) Monocytes # (Manual) Metamyelocytes # Myelocytes # Platelet Estimate Plt Morphology Comment RBC Morphology Microcytosis Smear Tech's Comments PT INR O2 Saturation ABG pH at Pt Temp ABG pH (Temp Correct) ABG pCO2 at Pt Temp ABG pCO2 (Temp Corrct ABG pO2 at Pt Temp ABG HCO3 ABG Base Excess (Actual) VBG pH VBG pCO2 VBG pO2 VBG HCO3 VBG O2 Saturation VBG Base Excess Sodium Potassium Chloride Carbon Dioxide Anion Gap BUN Creatinine Estim Creat Clear Calc Estimated GFR POC Glucose Random Glucose Lactic Acid 4.9 H* Lactic Acid Fup @ 2Hr Calcium Phosphorus Magnesium Total Bilirubin AST ALT Alkaline Phosphatase Total Creatine Kinase 909 H Troponin I High Sens 3049.6 H* D C-Reactive Protein B-Natriuretic Peptide Total Protein Albumin Urine Color Urine Appearance Urine pH Ur Specific [place] Urine Protein Urine Glucose (UA) Urine Ketones Urine Blood Urine Nitrite Ur Leukocyte Esterase Urine RBC Urine WBC Ur Squamous Epith Cells Urine Bacteria Hyaline Casts Granular Casts Urine Mucus Urine Opiates Screen Ur Barbiturates Screen Ur Phencyclidine Scrn Ur Amphetamines Screen U Benzodiazepines Scrn Urine Cocaine Screen U Marijuana (THC) Screen COVID-19 ([facility]) COVID-19 Clin Com 10/17/20 10/17/20 10/17/20 06:03 06:10 08:50 WBC RBC Hgb Hct MCV MCH MCHC RDW Plt Count MPV Immature Gran % (Auto) Neut % (Auto) Lymph % (Auto) Hendricks % (Auto) Eos % (Auto) Baso % (Auto) Lymph # (Auto) Hendricks # (Auto) Eos # (Auto) Baso # (Auto) Abs Immat Gran (auto) Absolute Neuts (auto) Absolute Nucleated RBC Nucleated RBC % (auto) Neutrophils % (Manual) Band Neutrophils % Lymphocytes % (Manual) Monocytes % (Manual) Metamyelocytes % Myelocytes % Abs Neuts (Manual) Lymphocytes # (Manual) Monocytes # (Manual) Metamyelocytes # Myelocytes # Platelet Estimate Plt Morphology Comment RBC Morphology Microcytosis Smear Tech's Comments PT INR O2 Saturation ABG pH at Pt Temp ABG pH (Temp Correct) ABG pCO2 at Pt Temp ABG pCO2 (Temp Corrct ABG pO2 at Pt Temp ABG HCO3 ABG Base Excess (Actual) VBG pH 7.27 L VBG pCO2 46 VBG pO2 70 VBG HCO3 21 L VBG O2 Saturation 93.0 VBG Base Excess -5.1 Sodium Potassium Chloride Carbon Dioxide Anion Gap BUN Creatinine Estim Creat Clear Calc Estimated GFR POC Glucose 185 H Random Glucose Lactic Acid Lactic Acid Fup @ 2Hr 3.7 H* Calcium Phosphorus Magnesium Total Bilirubin AST ALT Alkaline Phosphatase Total Creatine Kinase Troponin I High Sens C-Reactive Protein B-Natriuretic Peptide Total Protein Albumin Urine Color Urine Appearance Urine pH Ur Specific [place] Urine Protein Urine Glucose (UA) Urine Ketones Urine Blood Urine Nitrite Ur Leukocyte Esterase Urine RBC Urine WBC Ur Squamous Epith Cells Urine Bacteria Hyaline Casts Granular Casts Urine Mucus Urine Opiates Screen Ur Barbiturates Screen Ur Phencyclidine Scrn Ur Amphetamines Screen U Benzodiazepines Scrn Urine Cocaine Screen U Marijuana (THC) Screen COVID-19 ([facility]) COVID-19 Clin Com Critical Care Time Critical Care Time (minutes): 120
[2020-10-17 10:53] LABS: Reflex Lactate? 2 Y
[2020-10-17] MEDS: HYDROmorphone HCl 2 MG/ML VIAL IVPUSH ×6 (11:25→16:18)
[2020-10-17 11:55] LABS: ~Lactic Acid-LAB USE ONLY 4.1 mmol/L (0.5-2.0)
[2020-10-17 12:02] LABS: Cancel Lactic Acid Canceled
[2020-10-17] MEDS: fentaNYL citrate/PF 100 MCG/2 ML VIAL IVPUSH (17:18)
[2020-10-17] MEDS: LORazepam 2 MG/ML VIAL IV (17:23)
[2020-10-17] MEDS: fentaNYL citrate/PF 100 MCG/2 ML VIAL 200 MCG IVPUSH (17:47)
--- NOTE | 2020-10-17 17:50 | PM.EVENT ---
Event Note Date of Service: 10/17/20 Event Note: I was called to evaluate the patient for asystole. I went to the patient room. On exam no ROS, no pulse, fixed dilated pupils. Pronounced at 17:43 on 10/17/2020 Family at the bedside, support offered.
--- NOTE | 2020-10-17 18:45 | PC.NURSE ---
Per patients family and HCP () requesting terminal extubation. Dr Dewitt at bedside and ordered extubation. Pt hpertensive, and tachycardic. pT medicated with several doses of 2mg dilaudid pre extubation. RT at bedside and pt extubated. Suctioned copious amts of thin bloody secretions. PT struggling. Called Dr dewitt and pt given 200mcgs of fentanyl and Fentanyl gtt initiated. Nasal trumpet placed and I suctioned 150 mls of thin bloody secretions via NT. Pt herniating with diffuse global brain edema. Iv Ativan given IV without effect. Fentanyl at 200 mcgs. SPO2 decreased. at bedside. V-tach on monitor. Pt at 17:43. Hospitalist at bedside to declare. [place] [facility] called and pt ruled out. tALKED TO Frances AND REF #[id number]. bODY CARE DONE AND PT TRANSPORTED TO [facility] IN [place] TO TRUCK PACKER PER [facility].
--- NOTE | 2020-10-17 21:25 | P.DS_ITS ---
DS: Providers Provider Date of Service: 10/17/20 Date of admission: 10/17/20 01:00 Primary care physician: Patricia Collins NP DS: Medications Discharge Medications Home Medications: Home Medications Medication Instructions Recorded Confirmed albuterol sulfate 1 puff PO Q4H PRN 03/12/20 09/23/20 axitinib [Inlyta] 5 mg PO BID 03/12/20 09/23/20 ondansetron HCl 1 - 2 tab PO Q8H PRN 03/12/20 09/23/20 Previous Rx's Medication Instructions Recorded diltiazem HCl 120 mg 120 mg PO DAILY #90 cap 07/29/20 capsule,extended release 24 hr flecainide 150 mg tablet 150 mg PO Q12H #180 tab 09/23/20 morphine [MS Contin] 60 mg PO Q12H #60 tab 10/09/20 oxycodone 30 mg PO TID PRN #120 tab 10/09/20 DS: Summary Time Spent with Patient Time attestation: ADMISSION/DISCHARGE DIAGNOSIS 1. Status post cardiac arrest questionable arrhythmia, PE, massive [place], double it derangement, overdose 2. Sepsis probably due to aspiration pneumonia and reactive markers due to cardiac arrest 3. Lactic acidosis due to the above 4. History of renal cell carcinoma with lung metastasis 5. History of paroxysmal atrial fibrillation 6. Acute kidney injury likely due to hypoperffusion and volume depletion 7. Hyperglycemia rule out DKA 8. Multifactorial metabolic acidosis 9. Multiple rib fractures as a result of CPR on the bilateral anterior chest with displacement on the left 10. Pseudo hypocalcemia 11. Fever likely due to #2 12. Borderline Hypoalbumenemia 13. Anoxic brain Injury with CT evidence of it (edema) 14. NSTEMI HPI/hospital course: 40 year pld patient; post cardiac Arrest: According to the patient's , he was in his usual state of health yesterday. He mowed the lawn with the riding lawnmower, and then went out on his motorized bicycle later in the evening. He usually goes out for a two hour ride, but he didn?t come home last night and she didn?t know what happened to him until she got a call from the hospital. According to EMS, the patient was found outdoors unconscious on the ground. Bystanders estimated that the patient had been unconscious for 1/2 hour. EMS was called and started CPR on arrival at the scene. The patient was intubated in the field and brought to the emergency room. According to the carpet binder, CPR duration was 24 minutes, multiple epinephrine doses were given, the patient had one episode of ventricular fibrillation, one shock was administered, and amiodarone 300 mg was given. On arrival to the ED, the patient had ROSC with a pulse. Over the course of the first approx. 90 minutes in the ED, the patient went into cardiac arrest another four times, with multiple episodes of ventricular tachycardia, ventricular fibrillation, PEA, and sinus rhythm. The patient was given multiple doses of bicarbonate, calcium, epinephrine, and amiodarone, and then started on an amiodarone drip. Total epinephrine dosage was 14 mg. The patient regained ROSC a fifth time, and remained in sinus rhythm. Dr. Fuentes did speak with the patient's and recommended no further cardiopulmonary resuscitation showed another cardiac arrest ensue. The etiology of patient's cardiac arrest remains undetermined, fozia given that yesterday he was seemingly in his USOH. The patient's urinalysis was positive for opiates and benzos. A CTPA was done in the ED and was negative for PE. His workup reveals wbc's 29.9, H&H of 14.4 and 45.9 respectively, platelets of 193. INR 1.0, venous pH is 7.11, pCO2 40, PO2 3rd 35, HC03 no detectable. Chemistry is currently pending. Creatinine 1.5. Random glucose 300, lactic acid 12.1, magnesium 2.6, troponin 13.8, BNP 85. Ribcage area with displacement of the ribs on the left side. no pulmonary embolism, there is evidence of patchy opacity in the perihilar region of the right lung. This may represent aspiration versus atelectasis. There is multiple anterior fractures of the bilateral. Dr. Fuentes that the radiologist had called stated that the patient shows signs of brain edema on the head CT which may be consistent with severe hypoxic brain injury in the setting of cardiac arrest. The patient was admitted, given IV fluids, started on antibiotics (vancomycin and Zosyn), was given bicarb, albumin and was started on targeted temperature management with a goal temperature of 92? F, he was also started on Levophed to achieve optimal blood pressure and was kept sedated with propofol and fentanyl. Given that his troponin was reportedly 3000 last night, he was started on heparin drip. I had a lengthy discussion with family members who agreed that if he was to have any type of cardiac arrest again, he would not be resuscitated and at that point he would be made comfortable. They were aware of all the above and the poor prognosis this patient was facing but they were not ready to make any decisions at the time. Apparently this morning around 10:00 a.m., they discussed the case again with Dr. 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 The patient was pronounced by one of our hospitalist. REVIEW OF IMAGES: Head CT; IMPRESSION: Limited evaluation due to patient motion artifact. Although stover-white differentiation is maintained, there appears to be mild effacement of the sulci in the cerebral hemispheres compared to the prior examination, raising concern for early changes of hypoxic ischemic injury in the setting of unresponsiveness. Chest CT/ Abdominal/ Pelvis CT IMPRESSION: 1. Limited assessment throughout the chest, abdomen, and pelvis due to motion artifact. 2. No central pulmonary embolus identified, though the possibility of emboli beyond the main pulmonary arteries cannot be excluded. 3. Endotracheal tube tip approximately 1 cm beyond the sena in the right mainstem bronchus. Retraction recommended. 4. Patchy opacity in the perihilar region of the right lung; considerations include aspiration and/or atelectasis. 5. Multiple bilateral anterior to anterolateral rib fractures, with displaced fractures on the left. Overlying contusion in the left chest wall. 6. Small amount of perihepatic fluid, of uncertain etiology. 7. Status post right nephrectomy. Previously identified liver lesions are not well demonstrated on this exam. 8. Moderate distention of the colon with gas and stool. 9. Additional chronic findings as noted above. EKG REVIEW: EKG on record shows normal sinus rhythm with rate of 82 beats per minute. No ST elevations, no depressions. No comparison available. Time is 9:40 p.m. according to records. Total time spent providing and/or coordinating discharge services: 60 min Discharge coordination time: Greater than 30 minutes Quality: Stroke Does the patient have a stroke diagnosis?: No Physical Exam Vital Signs: Vital Signs: Last Vital Signs Temp 100.4 F 10/17/20 16:00 Pulse 120 H 05/22/21 17:48 Resp 44 H 10/17/20 17:48 BP 180/110 H 10/17/20 17:48 Pulse Ox 78 L 10/17/20 17:48 Body Mass Index 28.8 DS: Data Data Completed and Pending Labs on day of discharge: Laboratory Results - last 24 hr 10/16/20 10/16/20 10/16/20 22:36 22:36 22:36 WBC 29.9 H RBC 4.90 Hgb 14.4 Hct 45.9 MCV 93.7 MCH 29.4 MCHC 31.4 RDW 15.4 Plt Count 193 MPV 10.4 Immature Gran % (Auto) Cancelled Neut % (Auto) Cancelled Lymph % (Auto) Cancelled [place] % (Auto) Cancelled Eos % (Auto) Cancelled Baso % (Auto) Cancelled Lymph # (Auto) Cancelled [place] # (Auto) Cancelled Eos # (Auto) Cancelled Baso # (Auto) Cancelled Abs Immat Gran (auto) Cancelled Absolute Neuts (auto) Cancelled Absolute Nucleated RBC 0.020 H Nucleated RBC % (auto) 0.1 Neutrophils % (Manual) 53 Band Neutrophils % 15 H Lymphocytes % (Manual) 27 Monocytes % (Manual) 3 Metamyelocytes % 1 Myelocytes % 1 Abs Neuts (Manual) 20.3 H Lymphocytes # (Manual) 8.1 H Monocytes # (Manual) 0.9 Metamyelocytes # 0.3 Myelocytes # 0.3 Platelet Estimate NORMAL Plt Morphology Comment NORMAL RBC Morphology NOTED Microcytosis 1+ (5-14) Smear Tech's Comments PT 12.1 INR 1.0 O2 Saturation ABG pH at Pt Temp ABG pH (Temp Correct) ABG pCO2 at Pt Temp ABG pCO2 (Temp Corrct ABG pO2 at Pt Temp ABG HCO3 ABG Base Excess (Actual) VBG pH VBG pCO2 VBG pO2 VBG HCO3 VBG O2 Saturation VBG Base Excess Sodium 140 Potassium 4.4 Chloride 104 Carbon Dioxide 12 L Anion Gap 28 H BUN 15 Creatinine 1.50 H Estim Creat Clear Calc 90.2 Estimated GFR 52 POC Glucose Random Glucose 300 H D Lactic Acid Lactic Acid Fup @ 2Hr Lactic Acid Fup @ 4Hr Calcium 14.0 H* D Phosphorus Magnesium Total Bilirubin AST ALT Alkaline Phosphatase Total Creatine Kinase Troponin I High Sens C-Reactive Protein B-Natriuretic Peptide Total Protein Albumin Urine Color Urine Appearance Urine pH Ur Specific [place] Urine Protein Urine Glucose (UA) Urine Ketones Urine Blood Urine Nitrite Ur Leukocyte Esterase Urine RBC Urine WBC Ur Squamous Epith Cells Urine Bacteria Hyaline Casts Granular Casts Urine Mucus Urine Opiates Screen Ur Barbiturates Screen Ur Phencyclidine Scrn Ur Amphetamines Screen U Benzodiazepines Scrn Urine Cocaine Screen U Marijuana (THC) Screen COVID-19 ([facility]) COVID-19 [facility] 10/16/20 10/16/20 10/16/20 22:36 22:36 22:36 WBC RBC Hgb Hct MCV MCH MCHC RDW Plt Count MPV Immature Gran % (Auto) Neut % (Auto) Lymph % (Auto) [place] % (Auto) Eos % (Auto) Baso % (Auto) Lymph # (Auto) [place] # (Auto) Eos # (Auto) Baso # (Auto) Abs Immat Gran (auto) Absolute Neuts (auto) Absolute Nucleated RBC Nucleated RBC % (auto) Neutrophils % (Manual) Band Neutrophils % Lymphocytes % (Manual) Monocytes % (Manual) Metamyelocytes % Myelocytes % Abs Neuts (Manual) Lymphocytes # (Manual) Monocytes # (Manual) Metamyelocytes # Myelocytes # Platelet Estimate Plt Morphology Comment RBC Morphology Microcytosis Smear Tech's Comments PT INR O2 Saturation ABG pH at Pt Temp ABG pH (Temp Correct) ABG pCO2 at Pt Temp ABG pCO2 (Temp Corrct ABG pO2 at Pt Temp ABG HCO3 ABG Base Excess (Actual) VBG pH VBG pCO2 VBG pO2 VBG HCO3 VBG O2 Saturation VBG Base Excess Sodium Potassium Chloride Carbon Dioxide Anion Gap BUN Creatinine Estim Creat Clear Calc Estimated GFR POC Glucose Random Glucose Lactic Acid 12.1 H* Lactic Acid Fup @ 2Hr Lactic Acid Fup @ 4Hr Calcium Phosphorus Magnesium 2.6 Total Bilirubin AST ALT Alkaline Phosphatase Total Creatine Kinase Troponin I High Sens 13.8 C-Reactive Protein B-Natriuretic Peptide Total Protein Albumin Urine Color Urine Appearance Urine pH Ur Specific [place] Urine Protein Urine Glucose (UA) Urine Ketones Urine Blood Urine Nitrite Ur Leukocyte Esterase Urine RBC Urine WBC Ur Squamous Epith Cells Urine Bacteria Hyaline Casts Granular Casts Urine Mucus Urine Opiates Screen Ur Barbiturates Screen Ur Phencyclidine Scrn Ur Amphetamines Screen U Benzodiazepines Scrn Urine Cocaine Screen U Marijuana (THC) Screen COVID-19 (DINH) COVID-19 [employer] 10/16/20 10/16/20 10/17/20 22:37 22:40 01:41 WBC RBC Hgb Hct MCV MCH MCHC RDW Plt Count MPV Immature Gran % (Auto) Neut % (Auto) Lymph % (Auto) [place] % (Auto) Eos % (Auto) Baso % (Auto) Lymph # (Auto) [place] # (Auto) Eos # (Auto) Baso # (Auto) Abs Immat Gran (auto) Absolute Neuts (auto) Absolute Nucleated RBC Nucleated RBC % (auto) Neutrophils % (Manual) Band Neutrophils % Lymphocytes % (Manual) Monocytes % (Manual) Metamyelocytes % Myelocytes % Abs Neuts (Manual) Lymphocytes # (Manual) Monocytes # (Manual) Metamyelocytes # Myelocytes # Platelet Estimate Plt Morphology Comment RBC Morphology Microcytosis Smear Tech's Comments PT INR O2 Saturation ABG pH at Pt Temp ABG pH (Temp Correct) ABG pCO2 at Pt Temp ABG pCO2 (Temp Corrct ABG pO2 at Pt Temp ABG HCO3 ABG Base Excess (Actual) VBG pH 7.11 L* VBG pCO2 48 VBG pO2 235 VBG HCO3 TNP VBG O2 Saturation 99.0 VBG Base Excess TNP Sodium Potassium Chloride Carbon Dioxide Anion Gap BUN Creatinine Estim Creat Clear Calc Estimated GFR POC Glucose Random Glucose Lactic Acid Lactic Acid Fup @ 2Hr 5.4 H* Lactic Acid Fup @ 4Hr Calcium Phosphorus Magnesium Total Bilirubin AST ALT Alkaline Phosphatase Total Creatine Kinase Troponin I High Sens C-Reactive Protein B-Natriuretic Peptide 85 Total Protein Albumin Urine Color Urine Appearance Urine pH Ur Specific [place] Urine Protein Urine Glucose (UA) Urine Ketones Urine Blood Urine Nitrite Ur Leukocyte Esterase Urine RBC Urine WBC Ur Squamous Epith Cells Urine Bacteria Hyaline Casts Granular Casts Urine Mucus Urine Opiates Screen Ur Barbiturates Screen Ur Phencyclidine Scrn Ur Amphetamines Screen U Benzodiazepines Scrn Urine Cocaine Screen U Marijuana (THC) Screen COVID-19 (DINH) COVID-19 [employer] 10/17/20 10/17/20 10/17/20 01:41 01:41 01:41 WBC 44.3 H* RBC 4.92 Hgb 14.6 Hct 45.3 MCV 92.1 MCH 29.7 MCHC 32.2 RDW 15.6 Plt Count 255 D MPV 9.9 Immature Gran % (Auto) 2.4 H Neut % (Auto) 86.1 H Lymph % (Auto) 5.6 L [place] % (Auto) 5.1 Eos % (Auto) 0.5 Baso % (Auto) 0.3 Lymph # (Auto) 2.5 [place] # (Auto) 2.3 H Eos # (Auto) 0.2 Baso # (Auto) 0.1 Abs Immat Gran (auto) 1.07 H Absolute Neuts (auto) 38.1 H Absolute Nucleated RBC 0.000 Nucleated RBC % (auto) 0.0 Neutrophils % (Manual) Band Neutrophils % Lymphocytes % (Manual) Monocytes % (Manual) Metamyelocytes % Myelocytes % Abs Neuts (Manual) Lymphocytes # (Manual) Monocytes # (Manual) Metamyelocytes # Myelocytes # Platelet Estimate Plt Morphology Comment RBC Morphology Microcytosis Smear Tech's Comments VERIFIED PT INR O2 Saturation ABG pH at Pt Temp ABG pH (Temp Correct) ABG pCO2 at Pt Temp ABG pCO2 (Temp Corrct ABG pO2 at Pt Temp ABG HCO3 ABG Base Excess (Actual) VBG pH VBG pCO2 VBG pO2 VBG HCO3 VBG O2 Saturation VBG Base Excess Sodium 143 Potassium 3.8 Chloride 107 Carbon Dioxide 18 L Anion Gap 22 H BUN 22 H Creatinine 1.61 H Estim Creat Clear Calc 84.0 Estimated GFR 48 POC Glucose Random Glucose 223 H Lactic Acid Lactic Acid Fup @ 2Hr Lactic Acid Fup @ 4Hr Calcium 10.8 H D Phosphorus 7.0 H Magnesium Total Bilirubin 0.8 AST 1075 H ALT 644 H Alkaline Phosphatase 124 H D Total Creatine Kinase Troponin I High Sens C-Reactive Protein B-Natriuretic Peptide Total Protein 5.6 L D Albumin 3.4 L D Urine Color YELLOW Urine Appearance CLOUDY Urine pH 6.0 Ur Specific [place] 1.025 Urine Protein 3+ H Urine Glucose (UA) NEG Urine Ketones NEG Urine Blood 3+ H Urine Nitrite NEG Ur Leukocyte Esterase NEG Urine RBC 15-29 H Urine WBC 10-14 H Ur Squamous Epith Cells 1+ Urine Bacteria 2+ Hyaline Casts 1-4 Granular Casts 1-4 Urine Mucus 2+ Urine Opiates Screen Ur Barbiturates Screen Ur Phencyclidine Scrn Ur Amphetamines Screen U Benzodiazepines Scrn Urine Cocaine Screen U Marijuana (THC) Screen COVID-19 (DIN[facility]) COVID-19 [employer] 10/17/20 10/17/20 10/17/20 01:41 01:45 03:49 WBC RBC Hgb Hct MCV MCH MCHC RDW Plt Count MPV Immature Gran % (Auto) Neut % (Auto) Lymph % (Auto) [place] % (Auto) Eos % (Auto) Baso % (Auto) Lymph # (Auto) [place] # (Auto) Eos # (Auto) Baso # (Auto) Abs Immat Gran (auto) Absolute Neuts (auto) Absolute Nucleated RBC Nucleated RBC % (auto) Neutrophils % (Manual) Band Neutrophils % Lymphocytes % (Manual) Monocytes % (Manual) Metamyelocytes % Myelocytes % Abs Neuts (Manual) Lymphocytes # (Manual) Monocytes # (Manual) Metamyelocytes # Myelocytes # Platelet Estimate Plt Morphology Comment RBC Morphology Microcytosis Smear Tech's Comments PT INR O2 Saturation 99.0 ABG pH at Pt Temp 7.28 L ABG pH (Temp Correct) 7.28 L ABG pCO2 at Pt Temp 39 ABG pCO2 (Temp Corrct 38 ABG pO2 at Pt Temp 265 H ABG HCO3 18 L ABG Base Excess (Actual) -7.4 VBG pH VBG pCO2 VBG pO2 VBG HCO3 VBG O2 Saturation VBG Base Excess Sodium Potassium Chloride Carbon Dioxide Anion Gap BUN Creatinine Estim Creat Clear Calc Estimated GFR POC Glucose Random Glucose Lactic Acid 6.6 H* Lactic Acid Fup @ 2Hr Lactic Acid Fup @ 4Hr Calcium Phosphorus Magnesium Total Bilirubin AST ALT Alkaline Phosphatase Total Creatine Kinase Troponin I High Sens C-Reactive Protein B-Natriuretic Peptide Total Protein Albumin Urine Color Urine Appearance Urine pH Ur Specific [place] Urine Protein Urine Glucose (UA) Urine Ketones Urine Blood Urine Nitrite Ur Leukocyte Esterase Urine RBC Urine WBC Ur Squamous Epith Cells Urine Bacteria Hyaline Casts Granular Casts Urine Mucus Urine Opiates Screen POSITIVE H Ur Barbiturates Screen Not Detected Ur Phencyclidine Scrn Not Detected Ur Amphetamines Screen Not Detected U Benzodiazepines Scrn POSITIVE H Urine Cocaine Screen Not Detected U Marijuana (THC) Screen POSITIVE H COVID-19 (DIN[facility]) COVID-19 [employer] 10/17/20 10/17/20 10/17/20 05:45 05:54 05:54 WBC 36.4 H* RBC 3.93 L D Hgb 11.6 L D Hct 36.2 L D MCV 92.1 MCH 29.5 MCHC 32.0 RDW 15.7 Plt Count 214 MPV 10.2 Immature Gran % (Auto) 1.2 H Neut % (Auto) 90.7 H Lymph % (Auto) 3.3 L [place] % (Auto) 4.4 Eos % (Auto) 0.2 Baso % (Auto) 0.2 Lymph # (Auto) 1.2 [place] # (Auto) 1.6 H Eos # (Auto) 0.1 Baso # (Auto) 0.1 Abs Immat Gran (auto) 0.43 H Absolute Neuts (auto) 33.0 H Absolute Nucleated RBC 0.000 Nucleated RBC % (auto) 0.0 Neutrophils % (Manual) Band Neutrophils % Lymphocytes % (Manual) Monocytes % (Manual) Metamyelocytes % Myelocytes % Abs Neuts (Manual) Lymphocytes # (Manual) Monocytes # (Manual) Metamyelocytes # Myelocytes # Platelet Estimate Plt Morphology Comment RBC Morphology Microcytosis Smear Tech's Comments PT INR O2 Saturation ABG pH at Pt Temp ABG pH (Temp Correct) ABG pCO2 at Pt Temp ABG pCO2 (Temp Corrct ABG pO2 at Pt Temp ABG HCO3 ABG Base Excess (Actual) VBG pH VBG pCO2 VBG pO2 VBG HCO3 VBG O2 Saturation VBG Base Excess Sodium 142 Potassium 3.9 Chloride 107 Carbon Dioxide 24 Anion Gap 15 BUN 26 H Creatinine 1.62 H Estim Creat Clear Calc 83.5 Estimated GFR 47 POC Glucose Random Glucose 206 H Lactic Acid Lactic Acid Fup @ 2Hr Lactic Acid Fup @ 4Hr Calcium 9.4 D Phosphorus 2.9 Magnesium Total Bilirubin 1.0 AST 667 H ALT 445 H Alkaline Phosphatase 69 D Total Creatine Kinase Troponin I High Sens C-Reactive Protein 2.16 H B-Natriuretic Peptide Total Protein 4.6 L Albumin 3.0 L Urine Color Urine Appearance Urine pH Ur Specific [place] Urine Protein Urine Glucose (UA) Urine Ketones Urine Blood Urine Nitrite Ur Leukocyte Esterase Urine RBC Urine WBC Ur Squamous Epith Cells Urine Bacteria Hyaline Casts Granular Casts Urine Mucus Urine Opiates Screen Ur Barbiturates Screen Ur Phencyclidine Scrn Ur Amphetamines Screen U Benzodiazepines Scrn Urine Cocaine Screen U Marijuana (THC) Screen COVID-19 (DINH) Negative COVID-19 Clin Com See Note 05/22/21 05/22/21 05/22/21 05:54 05:54 05:54 WBC RBC Hgb Hct MCV MCH MCHC RDW Plt Count MPV Immature Gran % (Auto) Neut % (Auto) Lymph % (Auto) [place] % (Auto) Eos % (Auto) Baso % (Auto) Lymph # (Auto) [place] # (Auto) Eos # (Auto) Baso # (Auto) Abs Immat Gran (auto) Absolute Neuts (auto) Absolute Nucleated RBC Nucleated RBC % (auto) Neutrophils % (Manual) Band Neutrophils % Lymphocytes % (Manual) Monocytes % (Manual) Metamyelocytes % Myelocytes % Abs Neuts (Manual) Lymphocytes # (Manual) Monocytes # (Manual) Metamyelocytes # Myelocytes # Platelet Estimate Plt Morphology Comment RBC Morphology Microcytosis Smear Tech's Comments PT INR O2 Saturation ABG pH at Pt Temp ABG pH (Temp Correct) ABG pCO2 at Pt Temp ABG pCO2 (Temp Corrct ABG pO2 at Pt Temp ABG HCO3 ABG Base Excess (Actual) VBG pH VBG pCO2 VBG pO2 VBG HCO3 VBG O2 Saturation VBG Base Excess Sodium Potassium Chloride Carbon Dioxide Anion Gap BUN Creatinine Estim Creat Clear Calc Estimated GFR POC Glucose Random Glucose Lactic Acid 4.9 H* Lactic Acid Fup @ 2Hr Lactic Acid Fup @ 4Hr Calcium Phosphorus Magnesium Total Bilirubin AST ALT Alkaline Phosphatase Total Creatine Kinase 909 H Troponin I High Sens 3049.6 H* D C-Reactive Protein B-Natriuretic Peptide Total Protein Albumin Urine Color Urine Appearance Urine pH Ur Specific [place] Urine Protein Urine Glucose (UA) Urine Ketones Urine Blood Urine Nitrite Ur Leukocyte Esterase Urine RBC Urine WBC Ur Squamous Epith Cells Urine Bacteria Hyaline Casts Granular Casts Urine Mucus Urine Opiates Screen Ur Barbiturates Screen Ur Phencyclidine Scrn Ur Amphetamines Screen U Benzodiazepines Scrn Urine Cocaine Screen U Marijuana (THC) Screen COVID-19 (DIN[facility]) COVID-19 Clin Com 10/17/20 10/17/20 10/17/20 06:03 06:10 08:50 WBC RBC Hgb Hct MCV MCH MCHC RDW Plt Count MPV Immature Gran % (Auto) Neut % (Auto) Lymph % (Auto) [place] % (Auto) Eos % (Auto) Baso % (Auto) Lymph # (Auto) [place] # (Auto) Eos # (Auto) Baso # (Auto) Abs Immat Gran (auto) Absolute Neuts (auto) Absolute Nucleated RBC Nucleated RBC % (auto) Neutrophils % (Manual) Band Neutrophils % Lymphocytes % (Manual) Monocytes % (Manual) Metamyelocytes % Myelocytes % Abs Neuts (Manual) Lymphocytes # (Manual) Monocytes # (Manual) Metamyelocytes # Myelocytes # Platelet Estimate Plt Morphology Comment RBC Morphology Microcytosis Smear Tech's Comments PT INR O2 Saturation ABG pH at Pt Temp ABG pH (Temp Correct) ABG pCO2 at Pt Temp ABG pCO2 (Temp Corrct ABG pO2 at Pt Temp ABG HCO3 ABG Base Excess (Actual) VBG pH 7.27 L VBG pCO2 46 VBG pO2 70 VBG HCO3 21 L VBG O2 Saturation 93.0 VBG Base Excess -5.1 Sodium Potassium Chloride Carbon Dioxide Anion Gap BUN Creatinine Estim Creat Clear Calc Estimated GFR POC Glucose 185 H Random Glucose Lactic Acid Lactic Acid Fup @ 2Hr 3.7 H* Lactic Acid Fup @ 4Hr Calcium Phosphorus Magnesium Total Bilirubin AST ALT Alkaline Phosphatase Total Creatine Kinase Troponin I High Sens C-Reactive Protein B-Natriuretic Peptide Total Protein Albumin Urine Color Urine Appearance Urine pH Ur Specific [place] Urine Protein Urine Glucose (UA) Urine Ketones Urine Blood Urine Nitrite Ur Leukocyte Esterase Urine RBC Urine WBC Ur Squamous Epith Cells Urine Bacteria Hyaline Casts Granular Casts Urine Mucus Urine Opiates Screen Ur Barbiturates Screen Ur Phencyclidine Scrn Ur Amphetamines Screen U Benzodiazepines Scrn Urine Cocaine Screen U Marijuana (THC) Screen COVID-19 ([facility]IN[facility]) COVID-19 Clin Com 10/17/20 11:18 WBC RBC Hgb Hct MCV MCH MCHC RDW Plt Count MPV Immature Gran % (Auto) Neut % (Auto) Lymph % (Auto) [place] % (Auto) Eos % (Auto) Baso % (Auto) Lymph # (Auto) [place] # (Auto) Eos # (Auto) Baso # (Auto) Abs Immat Gran (auto) Absolute Neuts (auto) Absolute Nucleated RBC Nucleated RBC % (auto) Neutrophils % (Manual) Band Neutrophils % Lymphocytes % (Manual) Monocytes % (Manual) Metamyelocytes % Myelocytes % Abs Neuts (Manual) Lymphocytes # (Manual) Monocytes # (Manual) Metamyelocytes # Myelocytes # Platelet Estimate Plt Morphology Comment RBC Morphology Microcytosis Smear Tech's Comments PT INR O2 Saturation ABG pH at Pt Temp ABG pH (Temp Correct) ABG pCO2 at Pt Temp ABG pCO2 (Temp Corrct ABG pO2 at Pt Temp ABG HCO3 ABG Base Excess (Actual) VBG pH VBG pCO2 VBG pO2 VBG HCO3 VBG O2 Saturation VBG Base Excess Sodium Potassium Chloride Carbon Dioxide Anion Gap BUN Creatinine Estim Creat Clear Calc Estimated GFR POC Glucose Random Glucose Lactic Acid Lactic Acid Fup @ 2Hr Lactic Acid Fup @ 4Hr 4.1 H* Calcium Phosphorus Magnesium Total Bilirubin AST ALT Alkaline Phosphatase Total Creatine Kinase Troponin I High Sens C-Reactive Protein B-Natriuretic Peptide Total Protein Albumin Urine Color Urine Appearance Urine pH Ur Specific [place] Urine Protein Urine Glucose (UA) Urine Ketones Urine Blood Urine Nitrite Ur Leukocyte Esterase Urine RBC Urine WBC Ur Squamous Epith Cells Urine Bacteria Hyaline Casts Granular Casts Urine Mucus Urine Opiates Screen Ur Barbiturates Screen Ur Phencyclidine Scrn Ur Amphetamines Screen U Benzodiazepines Scrn Urine Cocaine Screen U Marijuana (THC) Screen COVID-19 ([facility]) COVID-19 Clin Com Discharge Plan Discharge Date/Time: 10/17/20 17:43 Patient Disposition: Discharge Diagnosis: see above Referrals: Patricia Collins NP [Primary Care Provider] - 1 Week Discharge Medications: No Action diltiazem HCl 120 mg capsule,extended release 24hr 120 mg PO DAILY Qty: 90 RF: 3 ondansetron HCl 8 mg tablet 1 - 2 tab PO Q8H PRN (Reason: nausea/vomiting) RF: 0 albuterol sulfate 90 mcg/actuation HFA aerosol inhaler 1 puff PO Q4H PRN (Reason: dyspnea) RF: 0 Inlyta 5 mg tablet 5 mg PO BID RF: 0 morphine [MS Contin] 60 mg Tablet Extended Release 60 mg PO Q12H Qty: 60 RF: 0 oxycodone 10 mg Tablet 30 mg PO TID PRN (Reason: Breakthrough Pain, Moderate) Qty: 120 RF: 0 flecainide 150 mg tablet 150 mg PO Q12H Qty: 180 RF: 4 Discharge Orders: Discharge Order (Routine); Ordered 10/17/20 Ordered By: Layo Ramirez Discharge Date/Time: 10/17/20 20:40
== END 2020-10-17 20:40 | disposition expired | DRG 720 ==
LOC: HO.ED 22:30 → HO.ICU 10-17 01:04
PROVIDERS: Anesthesiology; Admitting Provider Physician Assistant Medical; Emergency Provider Emergency Medicine; PCP Nurse Practitioner Family; Visit Provider Physician Assistant Medical
DX: A41.9 Sepsis, unspecified organism (principal); I21.4 Non-ST elevation (NSTEMI) myocardial infarction; J69.0 Pneumonitis due to inhalation of food and vomit; G93.1 Anoxic brain damage, not elsewhere classified; E87.2 Acidosis; N17.9 Acute kidney failure, unspecified; C78.00 Secondary malignant neoplasm of unspecified lung; I48.0 Paroxysmal atrial fibrillation; E11.65 Type 2 diabetes mellitus with hyperglycemia; M96.89 Other intraoperative and postprocedural complications and disorders of the musculoskeletal system; C64.9 Malignant neoplasm of unspecified kidney, except renal pelvis; Y84.8 Other medical procedures as the cause of abnormal reaction of the patient, or of later complication, without mention of misadventure at the time of the procedure; Z86.74 Personal history of sudden cardiac arrest; G89.4 Chronic pain syndrome; Z20.822 Contact with and (suspected) exposure to COVID-19; Z79.899 Other long term (current) drug therapy
CPT/HCPCS: 36415; 36600; 70450; 71045; 71275; 74177; 80048; 80053; 80307; 81001; 81003; 82550; 82947; 83605; 83735; 83880; 84100; 84484; 85007; 85025; 85027; 85610; 86140; 87040; 87635; 94002; 94003; 94799; 99283; 99291; C1758; J0171; J0282; J1100; J1170; J2060; J2250; J2543; J3010; J3370; P9047; Q9967